=== PATIENT | female | born 1960 | race Caucasian/White ===

== ENCOUNTER 2022-10-21 09:29 | Inpatient (IN) | payer BC ==
--- OUTSIDE RECORDS SUMMARY | 2022-10-21 09:37 | XMS REPORT | Continuity of Care Document ---
:1960 Author Organization [facility] t Address [address] [facility] [address] [place] [address] Care Team Providers Name Role Phone Veronica Melton NP Primary Care Physician Favian Fenton MD Attending Clinician Pob, [facility] Main Attending Clinician Unavailable Pritesh Oswald MD Attending Clinician PRITESH OSWALD Attending Clinician Unavailable RADIOLOGY Attending Clinician Unavailable Radiology Attending Clinician Unavailable Doctor Unassigned, [place] Attending Clinician Unavailable CATA KING Attending Clinician Unavailable Veronica Melton NP Attending Clinician BAYLEE GOODSON K.HLucinda Attending Clinician Unavailable Baylee Goodson MD K.H. Attending Clinician AISHA MORENO Attending Clinician Unavailable Bashir De Anda Attending Clinician [phone] Donna Jerome LVN Attending Clinician Unavailable FAVIAN FENTON Attending Clinician Unavailable ADRIANNA MCKEON Attending Clinician Unavailable Latia Penny Attending Clinician Adrianna Lebron Attending Clinician Team, [facility] Attending Clinician UnavailLATIA Slaughter Attending Clinician Unavailable King JAM MD, Brett Goode Attending Clinician MARY ROLLE Attending Clinician Unavailable Therapy, [facility] Covid Infusion Attending Clinician Unavailable Mary Rolle MD Attending Clinician Jarett REINOSO, Bailee Mckeon Attending Clinician Unavailable Provider, [facility] Attending Clinician Unavailable Kassidy Delacruz Attending Clinician [phone] Ashley Ledbetter MD Attending Clinician ASHLEY LEDBETTER Attending Clinician Unavailable Mary Grace Gonzalez MD Attending Clinician Lupillo Ballesteros MD Attending Clinician Kyara Mayers Attending Clinician Goyo Weaver DO Attending Clinician Pcp, Patient Does Not Have A Attending Clinician [phone] , [facility] Echo Room 1 - Attending Clinician Unavailable Lucius DUMONT, Nathen Attending Clinician 2, [facility] Lab Attending Clinician Unavailable Kenneth Johnson MD Attending Clinician JERRELL ROE Attending Clinician Unavailable Po, [facility] Attending Clinician Unavailable Oswaldo Black Attending Clinician OSWALDO BERGERON Attending Clinician Unavailable KYARA GRIFFITH Attending Clinician Unavailable Jaxon Fallon MD Attending Clinician Caroline Sanford Attending Clinician CAROLINE COE Attending Clinician Unavailable Therapy-Verona Cheng-B[facility]-Phys Attending Clinician Unavailable KENNETH JOHNSON Attending Clinician Unavailable Station, [facility] Heart Attending Clinician Unavailable 1, [facility] Lab Attending Clinician Unavailable Tech, [facility] Vascular Attending Clinician Unavailable Tech, [facility] Fac Attending Clinician Unavailable 1, [facility] Cardio Fac Room Attending Clinician Unavailable PRITESH OSWALD Admitting Clinician Unavailable FAVIAN FENTON Admitting Clinician Unavailable KYARA GRIFFITH Admitting Clinician Unavailable Payers Payer Name Policy Type Policy Number Effective Date Expiration Date Kalina moreno [facility] [id number] 2017 00:00:00 [facility] [id number] [place]-AREA POS - BCBS Problems Condition Condition Condition Status Onset Resolution Last Treating Co mments Source Name Details Category Date Date Treatment Clinician Date Primary Primary Disease Active 2018-06 Overview: Univ ers osteoarthr osteoarthr 1-11 [facility] ity of itis of itis of 00:00: g of this [place] left knee left knee 00 note Medi tia might be Branch different from the original. Added automatic ally from request for surgery [id number] Total knee Total knee Disease Active U nivers replacemen replacemen 03-03 it y of t status t status 00:00: [place] 00 Medical Branch Primary Primary Disease Active Overview: Univ ers osteoarthr osteoarthr 912 Formatt[facility] ity of itis of itis of 00:00: g of this [place] right knee right knee 00 note Me dical might be Branch different from the original. Added automatic ally from request for surgery [id number] Prediabete Prediabete Disease Active U nivers s s 3-06 ity of 00:00: [place] [facility] Metabolic Metabolic Disease Active 2015-06 Uni vers syndrome syndrome 2-02 ity of 00:00: [place] 00 Medical Branch Diastolic Diastolic Disease Active 2015-06 Uni vers dysfunctio dysfunctio 2-02 it y of n n 00:00: [place] [facility] Dyslipidem Dyslipidem Disease Active U nivers ia ia 2-10 ity of 00:00: [place] 00 Medical Branch Family Family Disease Active Univers history of history of 2-10 it y of cardiac cardiac 00:00: [place] disorder disorder 00 Medica l in father in father Bran ch HARI HARI Disease Active Univers (obstructi (obstructi 2-10 it y of ve sleep ve sleep 00:00: [place] apnea) apnea) 00 Medical Branch Obesity Obesity Disease Active Univers 2-10 ity of 00:00: [place] 00 Medical Branch Cardiac Cardiac Disease Active Univers murmur murmur 2-10 ity of 00:00: [place] 00 Medical Branch Depression Depression Disease Active U nivers 2-04 ity of 00:00: [place] [facility] Anxiety Anxiety Disease Active Univers 2-04 ity of 00:00: [place] 00 Medical Branch Hyperlipid Hyperlipid Disease Active 2016- U nivers emia emia 2-04 ity of 00:00: [place] 00 Medical Branch 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 2-04 it [place] neuropathy [place] Osteoarthr Osteoarthr Disease Active 2016- U nivers itis itis 2-04 ity of 00:00: [place] 00 Medical Branch Allergies, Adverse Reactions, Alerts Allergy Allergy Status Severity Reaction(s) Onset Inactive Treating Comm ents Source Name Type Date Date Clinician BIOTIN DRUG Active Other-Cmnt 2018-06 Univer s INGREDI 1-14 ity of 00:00: [place] 00 Medical Branch Biotin Propensi Active Other - See 2018-06 Causes Uni vers ty to comments 1-14 thyroid ity of adverse 00:00: issues [place] reaction 00 Medical s Branch PENICILL DRUG Active Rash 2014-06 Univers IN INGREDI 0-21 ity of 00:00: [place] 00 Medical Branch SIMVASTA DRUG Active Unknown-Cmnt 2014-06 Un kelly TIN INGREDI 0-21 ity of 00:00: [place] 00 Medical Branch Penicill Propensi Active Rash 2014-06 Univer s in ty to 0-21 ity of adverse 00:00: [place] reaction 00 Medical s Branch Simvasta Propensi Active Unknown - 2014-06 Uni vers tin ty to See comments 0-21 ity of adverse 00:00: [place] reaction 00 Medical s Branch Social History Social Habit Start Date Stop Date Quantity Comments Source Exposure to 2022-08-07 2022-08-17 Not sure [facility] SARS-CoV-2 00:00:00 12:00:[address] [facility] (event) Branch Alcohol intake 2021-10-31 2021-10-31 Current University of 00:00:00 00:00:00 non-drinker of [facility] alcohol (finding) Branch History [facility] 2019-04-28 2019-04-28 5 University o f Financial 00:00:00 00:00:00 [place] [facility] History SDAL Food 2019-04-28 2019-04-28 1 Univers ity of Worry 00:00:00 00:00:00 [place] [facility] History SDAL Food 2019-04-28 2019-04-28 1 Univers ity of Scarcity 00:00:00 00:00:00 [place] [facility] History SDAL 2019-04-28 2019-04-28 2 University o f Transport Med 00:00:00 00:00:00 [place] Medic al Branch History SDAL 2019-04-28 2019-04-28 2 University o f Transport Non-Med 00:00:00 00:00:00 [place] M edical Branch Tobacco use and 2015-07-15 2015-07-15 Smokeless tobacco Un iversity of exposure 00:00:00 00:00:00 non-user [facility] Sex Assigned At [birth year] JOCELYNE Morgan 00:00:00 00:00:00 [facility] Smoking Status Start Date Stop Date Source Never smoked tobacco [facility] Medications Ordered Filled Start Stop Current Ordering Indication Dosage Frequency Signature Comments Components Source Medication Medication Date Date Medication? Clinician (SIG) Name Name venlafaxine 2022-0 Yes 150mg Take 1 Uni vers XR 150 mg 4-26 capsule by ity of 24 hr 00:00: mouth in [place] capsule 00 the morning. Branch MUST BE SEEN FOR FURTHER REFILLS VENLAFAXINE 2022-0 Yes 150mg TAKE 1 Uni vers XR 150 mg 2-23 CAPSULE BY ity of 24 hr 00:00: MOUTH [place] capsule 00 DAILY Medical Branch VENLAFAXINE 3-0 Yes 150mg TAKE 1 Uni vers XR 150 mg 2-23 CAPSULE BY ity of 24 hr 00:00: MOUTH [place] capsule 00 DAILY Medical Branch VENLAFAXINE 2022-0 Yes 150mg TAKE 1 Uni vers XR 150 mg 2-23 CAPSULE BY ity of 24 hr 00:00: MOUTH [place] capsule 00 DAILY Medical Branch VENLAFAXINE 3-0 Yes 150mg TAKE 1 Uni vers XR 150 mg 2-23 CAPSULE BY ity of 24 hr 00:00: MOUTH [place] capsule 00 DAILY Medical Branch VENLAFAXINE 3-0 Yes 150mg TAKE 1 Uni vers XR 150 mg 2-23 CAPSULE BY ity of 24 hr 00:00: MOUTH [place] capsule 00 DAILY Medical Branch VENLAFAXINE 3-0 Yes 150mg TAKE 1 Uni vers XR 150 mg 2-23 CAPSULE BY ity of 24 hr 00:00: MOUTH [place] capsule 00 DAILY Medical Branch VENLAFAXINE 3-0 Yes 150mg TAKE 1 Uni vers XR 150 mg 2-23 CAPSULE BY ity of 24 hr 00:00: MOUTH [place] capsule 00 DAILY Medical Branch VENLAFAXINE 2022-0 Yes 150mg TAKE 1 Uni vers XR 150 mg 2-23 CAPSULE BY ity of 24 hr 00:00: MOUTH [place] capsule 00 DAILY Medical Branch VENLAFAXINE 2022-0 Yes 150mg TAKE 1 Uni vers XR 150 mg 2-23 CAPSULE BY ity of 24 hr 00:00: MOUTH [place] capsule 00 DAILY Medical Branch VENLAFAXINE 0 3- No 150mg TAKE 1 Un kelly XR 150 mg 2-23 04-26 CAPSULE BY ity of 24 hr 00:00: 00:00 MOUTH [place] capsule 00 :00 DAILY Medical Branch lisinopriL 2021-0 Yes [id number] 5mg Take 1 U nivers 5 mg tablet 9-26 tablet by ity of 00:00: mouth in [place] 00 the Medical morning Branch and 1 tablet in the evening. atorvastati 0 Yes [id number] 10mg Take 1 Univers n 10 mg 9-26 tablet by ity of tablet 00:00: mouth at [place] [address] bedtime. Medical Branch lisinopriL 0 Yes [id number] 5mg Take 1 U nivers 5 mg tablet 9-26 tablet by ity of 00:00: mouth in [place] 00 the Medical morning Branch and 1 tablet in the evening. atorvastati 2021-0 Yes [id number] 10mg Take 1 Univers n 10 mg 9-26 tablet by ity of tablet 00:00: mouth at [place] [address] bedtime. Medical Branch lisinopriL 2021-0 Yes [id number] 5mg Take 1 U nivers 5 mg tablet 9-26 tablet by ity of 00:00: mouth in [place] 00 the Medical morning Branch and 1 tablet in the evening. atorvastati 2021-0 Yes [id number] 10mg Take 1 Univers n 10 mg 9-26 tablet by ity of tablet 00:00: mouth at [place] [address] bedtime. Medical Branch lisinopriL 2021-0 Yes [id number] 5mg Take 1 U nivers 5 mg tablet 9-26 tablet by ity of 00:00: mouth in [place] 00 the Medical morning Branch and 1 tablet in the evening. atorvastati 2021-0 Yes [id number] 10mg Take 1 Univers n 10 mg 9-26 tablet by ity of tablet 00:00: mouth at [place] 00 bedtime. Medical Branch lisinopriL 2021-0 Yes [id number] 5mg Take 1 U nivers 5 mg tablet 9-26 tablet by ity of 00:00: mouth in [place] 00 the Medical morning Branch and 1 tablet in the evening. atorvastati 2021-0 Yes [id number] 10mg Take 1 Univers n 10 mg 9-26 tablet by ity of tablet 00:00: mouth at [place] [address] bedtime. Medical Branch lisinopriL 2021-0 Yes [id number] 5mg Take 1 U nivers 5 mg tablet 9-26 tablet by ity of 00:00: mouth in [place] 00 the Medical morning Branch and 1 tablet in the evening. atorvastati 2021-0 Yes [id number] 10mg Take 1 Univers n 10 mg 9-26 tablet by ity of tablet 00:00: mouth at [place] [address] bedtime. Medical Branch lisinopriL 2021-0 Yes [id number] 5mg Take 1 U nivers 5 mg tablet 9-26 tablet by ity of 00:00: mouth in [place] 00 the Medical morning Branch and 1 tablet in the evening. atorvastati 2021-0 Yes [id number] 10mg Take 1 Univers n 10 mg 9-26 tablet by ity of tablet 00:00: mouth at [place] [address] bedtime. Medical Branch lisinopriL 2021-0 Yes [id number] 5mg Take 1 U nivers 5 mg tablet 9-26 tablet by ity of 00:00: mouth in [place] 00 the Medical morning Branch and 1 tablet in the evening. atorvastati 2021-0 Yes [id number] 10mg Take 1 Univers n 10 mg 9-26 tablet by ity of tablet 00:00: mouth at [place] [address] bedtime. Medical Branch lisinopriL 2021-0 Yes [id number] 5mg Take 1 U nivers 5 mg tablet 9-26 tablet by ity of 00:00: mouth in [place] 00 the Medical morning Branch and 1 tablet in the evening. atorvastati 2021-0 Yes [id number] 10mg Take 1 Univers n 10 mg 9-26 tablet by ity of tablet 00:00: mouth at [place] [address] bedtime. Medical Branch lisinopriL 2021-0 Yes [id number] 5mg Take 1 U nivers 5 mg tablet 9-26 tablet by ity of 00:00: mouth in [place] 00 the Medical morning Branch and 1 tablet in the evening. atorvastati 2021-0 Yes [id number] 10mg Take 1 Univers n 10 mg 9-26 tablet by ity of tablet 00:00: mouth at [place] [address] bedtime. Medical Branch lisinopriL 2021-0 Yes [id number] 5mg Take 1 U nivers 5 mg tablet 9-26 tablet by ity of 00:00: mouth in [place] 00 the Medical morning Branch and 1 tablet in the evening. atorvastati 2021-0 Yes [id number] 10mg Take 1 Univers n 10 mg 9-26 tablet by ity of tablet 00:00: mouth at [place] [address] bedtime. Medical Branch lisinopriL 2021-0 Yes [id number] 5mg Take 1 U nivers 5 mg tablet 9-26 tablet by ity of 00:00: mouth in [place] 00 the Medical morning Branch and 1 tablet in the evening. atorvastati 2021-0 Yes [id number] 10mg Take 1 Univers n 10 mg 9-26 tablet by ity of tablet 00:00: mouth at [place] [address] bedtime. Medical Branch lisinopriL 0 Yes [id number] 5mg Take 1 U nivers 5 mg tablet 9-26 tablet by ity of 00:00: mouth in [place] 00 the Medical morning Branch and 1 tablet in the evening. atorvastati 2021-0 Yes [id number] 10mg Take 1 Univers n 10 mg 9-26 tablet by ity of tablet 00:00: mouth at [place] [address] bedtime. Medical Branch lisinopriL 2021-0 Yes [id number] 5mg Take 1 U nivers 5 mg tablet 9-26 tablet by ity of 00:00: mouth in [place] 00 the Medical morning Branch and 1 tablet in the evening. atorvastati 2021-0 Yes [id number] 10mg Take 1 Univers n 10 mg 9-26 tablet by ity of tablet 00:00: mouth at [place] [address] bedtime. Medical Branch lisinopriL 2021-0 Yes [id number] 5mg Take 1 U nivers 5 mg tablet 9-26 tablet by ity of 00:00: mouth in [place] 00 the Medical morning Branch and 1 tablet in the evening. atorvastati 2021-0 Yes [id number] 10mg Take 1 Univers n 10 mg 9-26 tablet by ity of tablet 00:00: mouth at [place] bedtime. Medical Branch XARELTO 20 2021-0 Yes [id number] TAKE 1 Univers mg tablet 8-01 TABLET BY ity o f 00:00: MOUTH EVERY DAY Medical Branch MONTELUKAST 2021-0 Yes [id number] 10mg TAKE 1 Univers 10 mg 8-01 9102 TABLET BY ity of tablet 00:00: MOUTH DAILY Medical Branch VENLAFAXINE 2021-0 Yes 150mg TAKE 1 Uni vers XR 150 mg 8-01 CAPSULE BY ity of 24 hr 00:00: MOUTH [place] capsule 00 DAILY Medical Branch ATORVASTATI 0 Yes [id number] 10mg TAKE 1 Univers N 10 mg 8-01 TABLET BY ity of tablet 00:00: MOUTH AT [place] BEDTIME Medical Branch MONTELUKAST 0 Yes [id number] 10mg TAKE 1 Univers 10 mg 8-01 9102 TABLET BY ity of tablet 00:00: MOUTH DAILY Medical Branch ATORVASTATI 0 Yes [id number] 10mg TAKE 1 Univers N 10 mg 8-01 TABLET BY ity of tablet 00:00: MOUTH AT [place] BEDTIME Medical Branch lisinopriL Yes TAKE 1 Unive rs 5 mg tablet 8-01 TABLET BY ity of 00:00: MOUTH TWICE Medical DAILY Branch XARELTO 20 0 Yes [id number] TAKE 1 Univers mg tablet 8-01 TABLET BY ity o f 00:00: MOUTH [place] EVERY DAY Medical Branch MONTELUKAST 2021-0 Yes [id number] 10mg TAKE 1 Univers 10 mg 8-01 9102 TABLET BY ity of tablet 00:00: MOUTH DAILY Medical Branch VENLAFAXINE 2021-0 Yes 150mg TAKE 1 Uni vers XR 150 mg 8-01 CAPSULE BY ity of 24 hr 00:00: MOUTH [place] capsule 00 DAILY Medical Branch ATORVASTATI 2021-0 Yes [id number] 10mg TAKE 1 Univers N 10 mg 8-01 TABLET BY ity of tablet 00:00: MOUTH AT [place] BEDTIME Medical Branch MONTELUKAST 2021-0 Yes [id number] 10mg TAKE 1 Univers 10 mg 8-01 9102 TABLET BY ity of tablet 00:00: MOUTH DAILY Medical Branch ATORVASTATI Yes [id number] 10mg TAKE 1 Univers N 10 mg 8-01 TABLET BY ity of tablet 00:00: MOUTH AT [place] BEDTIME Medical Branch lisinopriL Yes TAKE 1 Unive rs 5 mg tablet 8-01 TABLET BY ity of 00:00: MOUTH [place] TWICE Medical DAILY Branch XARELTO 20 0 Yes [id number] TAKE 1 Univers mg tablet 8-01 TABLET BY ity o f 00:00: MOUTH [place] EVERY DAY Medical Branch MONTELUKAST 0 Yes [id number] 10mg TAKE 1 Univers 10 mg 8-01 9102 TABLET BY ity of tablet 00:00: MOUTH [place] DAILY Medical Branch VENLAFAXINE Yes 150mg TAKE 1 Uni vers XR 150 mg 8-01 CAPSULE BY ity of 24 hr 00:00: MOUTH [place] capsule DAILY Medical Branch ATORVASTATI Yes [id number] 10mg TAKE 1 Univers N 10 mg 8-01 TABLET BY ity of tablet 00:00: MOUTH AT [place] BEDTIME Medical Branch MONTELUKAST Yes [id number] 10mg TAKE 1 Univers 10 mg 8-01 9102 TABLET BY ity of tablet 00:00: MOUTH [place] DAILY Medical Branch ATORVASTATI Yes [id number] 10mg TAKE 1 Univers N 10 mg 8-01 TABLET BY ity of tablet 00:00: MOUTH [facility] BEDTIME Medical Branch lisinopriL Yes TAKE 1 Unive rs 5 mg tablet 8-01 TABLET BY ity of 00:00: MOUTH [place] TWICE Medical DAILY Branch XARELTO 20 Yes [id number] TAKE 1 Univers mg tablet 8-01 TABLET BY ity o f 00:00: MOUTH [place] EVERY DAY Medical Branch MONTELUKAST 0 Yes [id number] 10mg TAKE 1 Univers 10 mg 8-01 9102 TABLET BY ity of tablet 00:00: MOUTH [place] DAILY Medical Branch VENLAFAXINE 2021-0 Yes 150mg TAKE 1 Uni vers XR 150 mg 8-01 CAPSULE BY ity of 24 hr 00:00: MOUTH [place] capsule DAILY Medical Branch ATORVASTATI Yes [id number] 10mg TAKE 1 Univers N 10 mg 8-01 TABLET BY ity of tablet 00:00: MOUTH AT [place] BEDTIME Medical Branch MONTELUKAST Yes [id number] 10mg TAKE 1 Univers 10 mg 8-01 9102 TABLET BY ity of tablet 00:00: MOUTH [place] DAILY Medical Branch ATORVASTATI 0 Yes [id number] 10mg TAKE 1 Univers N 10 mg 8-01 TABLET BY ity of tablet 00:00: MOUTH AT [place] BEDTIME Medical Branch XARELTO 20 Yes [id number] TAKE 1 Univers mg tablet 8-01 TABLET BY ity o f 00:00: MOUTH [place] EVERY DAY Medical Branch MONTELUKAST Yes [id number] 10mg TAKE 1 Univers 10 mg 8-01 9102 TABLET BY ity of tablet 00:00: MOUTH [place] DAILY Medical Branch VENLAFAXINE Yes 150mg TAKE 1 Uni vers XR 150 mg 8-01 CAPSULE BY ity of 24 hr 00:00: MOUTH [place] capsule DAILY Medical Branch [facility] CARELUKAST Yes [id number] 10mg TAKE 1 Univers 10 mg 8-01 9102 TABLET BY ity of tablet 00:00: MOUTH [place] DAILY Medical Branch ATORVASTATI Yes [id number] 10mg TAKE 1 Univers N 10 mg 8-01 TABLET BY ity of tablet 00:00: MOUTH AT [place] BEDTIME Medical Branch XARELTO 20 Yes [id number] TAKE 1 Univers mg tablet 8-01 TABLET BY ity o f 00:00: MOUTH [place] DAY Medical Branch MONTELUKAST Yes [id number] 10mg TAKE 1 Univers 10 mg 8-01 9102 TABLET BY ity of tablet 00:00: MOUTH [place] DAILY Medical Branch VENLAFAXINE Yes 150mg TAKE 1 Uni vers XR 150 mg 8-01 CAPSULE BY ity of 24 hr 00:00: MOUTH [place] capsule DAILY Medical Branch MONTELUKAST Yes [id number] 10mg TAKE 1 Univers 10 mg 8-01 9102 TABLET BY ity of tablet 00:00: MOUTH [place] DAILY Medical Branch ATORVASTATI Yes [id number] 10mg TAKE 1 Univers N 10 mg 8-01 TABLET BY ity of tablet 00:00: MOUTH AT [place] BEDTIME Medical Branch XARELTO 20 Yes [id number] TAKE 1 Univers mg tablet 8-01 TABLET BY ity o f 00:00: MOUTH EVERY DAY Medical Branch MONTELUKAST 0 Yes [id number] 10mg TAKE 1 Univers 10 mg 8-01 9102 TABLET BY ity of tablet 00:00: MOUTH DAILY Medical Branch VENLAFAXINE 0 Yes 150mg TAKE 1 Uni vers XR 150 mg 8-01 CAPSULE BY ity of 24 hr 00:00: MOUTH [place] capsule DAILY Medical Branch MONTELUKAST Yes [id number] 10mg TAKE 1 Univers 10 mg 8-01 9102 TABLET BY ity of tablet 00:00: MOUTH DAILY Medical Branch ATORVASTATI Yes [id number] 10mg TAKE 1 Univers N 10 mg 8-01 TABLET BY ity of tablet 00:00: MOUTH AT [place] BEDTIME Medical Branch XARELTO 20 Yes [id number] TAKE 1 Univers mg tablet 8-01 TABLET BY ity o f 00:00: MOUTH EVERY DAY Medical Branch MONTELUKAST Yes [id number] 10mg TAKE 1 Univers 10 mg 8-01 9102 TABLET BY ity of tablet 00:00: MOUTH DAILY Medical Branch VENLAFAXINE 0 Yes 150mg TAKE 1 Uni vers XR 150 mg 8-01 CAPSULE BY ity of 24 hr 00:00: MOUTH [place] capsule DAILY Medical Branch MONTELUKAST 0 Yes [id number] 10mg TAKE 1 Univers 10 mg 8-01 9102 TABLET BY ity of tablet 00:00: MOUTH DAILY Medical Branch ATORVASTATI 0 Yes [id number] 10mg TAKE 1 Univers N 10 mg 8-01 TABLET BY ity of tablet 00:00: MOUTH AT [place] BEDTIME Medical Branch XARELTO 20 Yes [id number] TAKE 1 Univers mg tablet 8-01 TABLET BY ity o f 00:00: MOUTH [place] EVERY DAY Medical Branch MONTELUKAST 0 Yes [id number] 10mg TAKE 1 Univers 10 mg 8-01 9102 TABLET BY ity of tablet 00:00: MOUTH DAILY Medical Branch VENLAFAXINE Yes 150mg TAKE 1 Uni vers XR 150 mg 8-01 CAPSULE BY ity of 24 hr 00:00: MOUTH [place] DAILY Medical Branch MONTELUKAST Yes [id number] 10mg TAKE 1 Univers 10 mg 8-01 9102 TABLET BY ity of tablet 00:00: MOUTH [place] DAILY Medical Branch ATORVASTATI 0 Yes [id number] 10mg TAKE 1 Univers N 10 mg 8-01 TABLET BY ity of tablet 00:00: MOUTH AT [place] BEDTIME Medical Branch XARELTO 20 Yes [id number] TAKE 1 Univers mg tablet 8-01 TABLET BY ity o f 00:00: MOUTH [place] EVERY DAY Medical Branch MONTELUKAST Yes [id number] 10mg TAKE 1 Univers 10 mg 8-01 9102 TABLET BY ity of tablet 00:00: MOUTH [place] DAILY Medical Branch MONTELUKAST 0 Yes [id number] 10mg TAKE 1 Univers 10 mg 8-01 9102 TABLET BY ity of tablet 00:00: MOUTH [place] DAILY Medical Branch ATORVASTATI 0 Yes [id number] 10mg TAKE 1 Univers N 10 mg 8-01 TABLET BY ity of tablet 00:00: MOUTH AT [place] BEDTIME Medical Branch XARELTO 20 Yes [id number] TAKE 1 Univers mg tablet 8-01 TABLET BY ity o f 00:00: MOUTH [place] DAY Medical Branch MONTELUKAST 2021-0 Yes [id number] 10mg TAKE 1 Univers 10 mg 8-01 9102 TABLET BY ity of tablet 00:00: MOUTH [place] DAILY Medical Branch MONTELUKAST 2021-0 Yes [id number] 10mg TAKE 1 Univers 10 mg 8-01 9102 TABLET BY ity of tablet 00:00: MOUTH [place] DAILY Medical Branch ATORVASTATI 0 Yes [id number] 10mg TAKE 1 Univers N 10 mg 8-01 TABLET BY ity of tablet 00:00: MOUTH AT [place] BEDTIME Medical Branch XARELTO 20 2021-0 Yes [id number] TAKE 1 Univers mg tablet 8-01 TABLET BY ity o f 00:00: MOUTH [place] EVERY DAY Medical Branch MONTELUKAST Yes [id number] 10mg TAKE 1 Univers 10 mg 8-01 9102 TABLET BY ity of tablet 00:00: MOUTH DAILY Medical Branch MONTELUKAST 2021-0 Yes [id number] 10mg TAKE 1 Univers 10 mg 8-01 9102 TABLET BY ity of tablet 00:00: MOUTH DAILY Medical Branch ATORVASTATI 2021-0 Yes [id number] 10mg TAKE 1 Univers N 10 mg 8-01 TABLET BY ity of tablet 00:00: MOUTH AT [place] BEDTIME Medical Branch XARELTO 20 0 Yes [id number] TAKE 1 Univers mg tablet 8-01 TABLET BY ity o f 00:00: MOUTH [place] EVERY DAY Medical Branch MONTELUKAST 0 Yes [id number] 10mg TAKE 1 Univers 10 mg 8-01 9102 TABLET BY ity of tablet 00:00: MOUTH [place] DAILY Medical Branch MONTELUKAST 0 Yes [id number] 10mg TAKE 1 Univers 10 mg 8-01 9102 TABLET BY ity of tablet 00:00: MOUTH [place] DAILY Medical Branch ATORVASTATI 0 Yes [id number] 10mg TAKE 1 Univers N 10 mg 8-01 TABLET BY ity of tablet 00:00: MOUTH AT [place] BEDTIME Medical Branch XARELTO 20 0 Yes [id number] TAKE 1 Univers mg tablet 8-01 TABLET BY ity o f 00:00: MOUTH [place] EVERY DAY Medical Branch MONTELUKAST 2021-0 Yes [id number] 10mg TAKE 1 Univers 10 mg 8-01 9102 TABLET BY ity of tablet 00:00: [facility] DAILY Medical Branch MONTELUKAST 2021-0 Yes [id number] 10mg TAKE 1 Univers 10 mg 8-01 9102 TABLET BY ity of tablet 00:00: MOUTH [place] DAILY Medical Branch ATORVASTATI 0 Yes [id number] 10mg TAKE 1 Univers N 10 mg 8-01 TABLET BY ity of tablet 00:00: MOUTH AT [place] BEDTIME Medical Branch XARELTO 20 2021-0 Yes [id number] TAKE 1 Univers mg tablet 8-01 TABLET BY ity o f 00:00: MOUTH [place] EVERY DAY Medical Branch MONTELUKAST 2021-0 Yes [id number] 10mg TAKE 1 Univers 10 mg 8-01 9102 TABLET BY ity of tablet 00:00: MOUTH [place] DAILY Medical Branch MONTELUKAST 2021-0 Yes [id number] 10mg TAKE 1 Univers 10 mg 8-01 9102 TABLET BY ity of tablet 00:00: MOUTH [place] DAILY Medical Branch ATORVASTATI 2021-0 Yes [id number] 10mg TAKE 1 Univers N 10 mg 8-01 TABLET BY ity of tablet 00:00: MOUTH AT [place] BEDTIME Medical Branch XARELTO 20 2021-0 Yes [id number] TAKE 1 Univers mg tablet 8-01 TABLET BY ity o f 00:00: MOUTH [place] EVERY DAY Medical Branch MONTELUKAST 2021-0 Yes [id number] 10mg TAKE 1 Univers 10 mg 8-01 9102 TABLET BY ity of tablet 00:00: MOUTH [place] DAILY Medical Branch MONTELUKAST 2021-0 Yes [id number] 10mg TAKE 1 [facility] 10 mg 8-01 9102 TABLET BY ity of tablet 00:00: [facility] DAILY Medical Branch ATORVASTATI 2021-0 Yes [id number] 10mg TAKE 1 [facility] N 10 mg 8-01 TABLET BY ity of tablet 00:00: MOUTH AT [place] BEDTIME Medical Branch XARELTO 20 2021-0 Yes [id number] TAKE 1 [facility] mg tablet 8-01 TABLET BY ity o f 00:00: MOUTH [place] EVERY DAY Medical Branch MONTELUKAST 2021-0 Yes [id number] 10mg TAKE 1 [facility] 10 mg 8-01 9102 TABLET BY ity of tablet 00:00: [facility] DAILY Medical Branch MONTELUKAST 2021-0 Yes [id number] 10mg TAKE 1 [facility] 10 mg 8-01 9102 TABLET BY ity of tablet 00:00: MOUTH [place] DAILY Medical Branch ATORVASTATI 2021-0 Yes [id number] 10mg TAKE 1 [facility] N 10 mg 8-01 TABLET BY ity of tablet 00:00: MOUTH AT [place] BEDTIME Medical Branch XARELTO 20 2021-0 Yes [id number] TAKE 1 [facility] mg tablet 8-01 TABLET BY ity o f 00:00: MOUTH [place] EVERY DAY Medical Branch MONTELUKAST 2021-0 Yes [id number] 10mg TAKE 1 [facility] 10 mg 8-01 9102 TABLET BY ity of tablet 00:00: MOUTH [place] DAILY Medical [facility] MONTELUKAST 0 Yes [id number] 10mg TAKE 1 [facility] 10 mg 8- 9102 TABLET BY ity of tablet 00:00: MOUTH [place] DAILY Medical [facility] ATORVASTATI 0 Yes [id number] 10mg TAKE 1 [facility] N 10 mg 8-01 TABLET BY ity of tablet 00:00: MOUTH AT [place] BEDTIME Medical Branch XARELTO 20 2021-0 Yes [id number] TAKE 1 [facility] mg tablet 8- TABLET BY ity o f 00:00: MOUTH [place] EVERY DAY Medical Branch MONTELUKAST 0 Yes [id number] 10mg TAKE 1 [facility] 10 mg 8- 9102 TABLET BY ity of tablet 00:00: MOUTH [place] DAILY Medical [facility] MONTELUKAST 0 Yes [id number] 10mg TAKE 1 [facility] 10 mg 8- 9102 TABLET BY ity of tablet 00:00: MOUTH [place] DAILY [facility] ATORVASTATI 0 Yes [id number] 10mg TAKE 1 [facility] N 10 mg 8- TABLET BY ity of tablet 00:00: MOUTH AT [place] BEDTIME Medical Branch VENLAFAXINE 0 2022- No 150mg TAKE 1 [facility] kelly XR 150 mg 01-09 CAPSULE BY ity of 24 hr 00:00: 00:00 MOUTH [place] capsule 00 :00 DAILY Medical Branch lisinopriL 0 2021- No TAKE 1 [facility] ers 5 mg tablet 01-09 TABLET BY it y of 00:00: 00:00 [facility] 00 :00 TWICE Medical DAILY Branch ATORVASTATI 0 2021- No [id number] 10mg TAKE 1 [facility] N 10 mg 01-09 TABLET BY ity of tablet 00:00: 00:00 MOUTH AT [place] 00 :00 BEDTIME Medical Branch lisinopriL 0 2021- No TAKE 1 [facility] ers 5 mg tablet 01-09 TABLET BY it y of 00:00: 00:00 MOUTH [place] 00 :00 TWICE Medical DAILY Branch ATORVASTATI 2021-0 2021- No [id number] 10mg TAKE 1 [facility] N 10 mg 01-09 TABLET BY ity of tablet 00:00: 00:00 MOUTH AT [place] 00 :00 BEDTIME Medical Branch lisinopriL 2021- No TAKE 1 [facility] ers 5 mg tablet 01-09 TABLET BY it y of 00:00: 00:00 MOUTH [place] 00 : TWICE Medical DAILY Branch ATORVASTATI 2021- No [id number] 10mg TAKE 1 [facility] N 10 mg 01-09 TABLET BY ity of tablet 00:00: 00:00 MOUTH AT [place] 00 :00 BEDTIME Medical Branch LISINOPRIL Yes TAKE 1 [facility] rs 5 mg tablet - TABLET BY ity of 00:00: MOUTH [place] TWICE Medical DAILY Branch LISINOPRIL Yes TAKE 1 [facility] 5 mg tablet 5-05 TABLET BY ity of 00:00: MOUTH [place] TWICE Medical DAILY Branch LISINOPRIL 2021- No TAKE 1 [facility] ers 5 mg tablet 10-13 TABLET BY it y of 00:00: 00:00 [facility] 00 :00 TWICE Medical DAILY Branch MONTELUKAST Yes [id number] 10mg TAKE 1 [facility] 10 mg - 9102 TABLET BY ity of tablet 00:00: [facility] DAILY Medical Branch ATORVASTATI Yes [id number] 10mg TAKE 1 [facility] N 10 mg - TABLET BY ity of tablet 00:00: MOUTH AT [place] 00 BEDTIME Medical Branch MONTELUKAST 2021- No [id number] 10mg TAKE 1 [facility] 10 mg 5-07 19- 9102 TABLET BY ity of tablet 00:00: 00:00 [facility] 00 : DAILY Medical Branch ATORVASTATI 2021- No [id number] 10mg TAKE 1 [facility] N 10 mg 5-01-09 TABLET BY ity of tablet 00:00: 00:00 MOUTH AT [place] 00 :00 BEDTIME Medical Branch VENLAFAXINE Yes 150mg TAKE 1 [facility] vers XR 150 mg - CAPSULE BY ity of 24 hr 00:00: MOUTH [place] capsule 00 DAILY Medical Branch VENLAFAXINE 0 2021- No 150mg TAKE 1 [facility] kelly XR 150 mg 4-06 18- CAPSULE BY ity of 24 hr 00:00: 00:00 MOUTH [place] capsule 00 :00 DAILY Medical Branch XARELTO 20 2022-0 Yes [id number] TAKE 1 [facility] mg tablet 1-31 TABLET BY ity o f 00:00: MOUTH [place] 00 EVERY DAY Medical Branch XARELTO 20 2021-0 2- No [id number] TAKE 1 [facility] mg tablet 1-31 08- TABLET BY ity of 00:00: 00:00 MOUTH [place] 00 :00 EVERY DAY Medical Branch benzonatate 2021-0 Yes [id number] 100mg Take 1 [facility] 100 mg 1-13 capsule by ity of capsule 00:00: mouth [place] 00 every 8 Medical (eight) Branch hours as needed for Cough. benzonatate 2021-0 Yes [id number] 100mg Take 1 [facility] 100 mg 1-13 capsule by ity of capsule 00:00: mouth [place] 00 every 8 Medical (eight) Branch hours as needed for Cough. benzonatate 2021-0 Yes [id number] 100mg Take 1 [facility] 100 mg 1-13 capsule by ity of capsule 00:00: mouth [place] 00 every 8 Medical (eight) Branch hours as needed for Cough. benzonatate 2021-0 Yes [id number] 100mg Take 1 [facility] 100 mg 1-13 capsule by ity of capsule 00:00: mouth [place] 00 every 8 Medical (eight) Branch hours as needed for Cough. benzonatate 2021-0 Yes [id number] 100mg Take 1 [facility] 100 mg 1-13 capsule by ity of capsule 00:00: mouth [place] 00 every 8 Medical (eight) Branch hours as needed for Cough. benzonatate 2021-0 Yes [id number] 100mg Take 1 [facility] 100 mg 1-13 capsule by ity of capsule 00:00: mouth [place] 00 every 8 Medical (eight) Branch hours as needed for Cough. benzonatate 2021-0 Yes [id number] 100mg Take 1 [facility] 100 mg 1-13 capsule by ity of capsule 00:00: mouth [place] 00 every 8 Medical (eight) Branch hours as needed for Cough. benzonatate 2021-0 Yes [id number] 100mg Take 1 [facility] 100 mg 1-13 capsule by ity of capsule 00:00: mouth [place] 00 every 8 Medical (eight) Branch hours as needed for Cough. benzonatate 2021-0 Yes [id number] 100mg Take 1 [facility] 100 mg 1-13 capsule by ity of capsule 00:00: mouth [place] 00 every 8 Medical (eight) Branch hours as needed for Cough. benzonatate 2-0 Yes [id number] 100mg Take 1 [facility] 100 mg 1-13 capsule by ity of capsule 00:00: mouth [place] 00 every 8 Medical (eight) Branch hours as needed for Cough. benzonatate 2021-0 Yes [id number] 100mg Take 1 [facility] 100 mg 1-13 capsule by ity of capsule 00:00: mouth [place] 00 every 8 Medical (eight) Branch hours as needed for Cough. benzonatate 2021-0 Yes [id number] 100mg Take 1 [facility] 100 mg 1-13 capsule by ity of capsule 00:00: mouth [place] 00 every 8 Medical (eight) Branch hours as needed for Cough. benzonatate 2021-0 Yes [id number] 100mg Take 1 [facility] 100 mg 1-13 capsule by ity of capsule 00:00: mouth [place] 00 every 8 Medical (eight) Branch hours as needed for Cough. benzonatate 2021-0 Yes [id number] 100mg Take 1 [facility] 100 mg 1-13 capsule by ity of capsule 00:00: mouth [place] 00 every 8 Medical (eight) Branch hours as needed for Cough. benzonatate 2021-0 Yes [id number] 100mg Take 1 [facility] 100 mg 1-13 capsule by ity of capsule 00:00: mouth [place] 00 every 8 Medical (eight) Branch hours as needed for Cough. benzonatate 2021-0 Yes [id number] 100mg Take 1 [facility] 100 mg 1-13 capsule by ity of capsule 00:00: mouth [place] 00 every 8 Medical (eight) Branch hours as needed for Cough. benzonatate 2021-0 Yes [id number] 100mg Take 1 [facility] 100 mg 1-13 capsule by ity of capsule 00:00: mouth [place] 00 every 8 Medical (eight) Branch hours as needed for Cough. benzonatate 2021-0 Yes [id number] 100mg Take 1 [facility] 100 mg 1-13 capsule by ity of capsule 00:00: mouth [place] 00 every 8 Medical (eight) Branch hours as needed for Cough. benzonatate 2-0 Yes [id number] 100mg Take 1 [facility] 100 mg 1-13 capsule by ity of capsule 00:00: mouth [place] 00 every 8 Medical (eight) Branch hours as needed for Cough. benzonatate 2-0 Yes [id number] 100mg Take 1 [facility] 100 mg 1-13 capsule by ity of capsule 00:00: mouth [place] 00 every 8 Medical (eight) Branch hours as needed for Cough. azithromyci Yes [id number] 250mg Take 1 [facility] n 8-25 [id number] tablet by ity of (ZITHROMAX 00:00: mouth [place] Z-LYNNE) 250 00 daily. Medical mg tablet Take 500 Branch mg day 1, then 250 mg days 2 to 5. predniSONE Yes [id number] 20mg Take 1 [facility] 20 mg 8-25 [id number] tablet by ity of tablet 00:00: mouth [place] 00 daily. Medical Branch azithromyci Yes [id number] 250mg Take 1 [facility] n 8-25 [id number] tablet by ity of (ZITHROMAX 00:00: mouth [place] Z-LYNNE) 250 00 daily. Medical mg tablet Take 500 Branch mg day 1, then 250 mg days 2 to 5. predniSONE Yes [id number] 20mg Take 1 [facility] 20 mg 8-25 [id number] tablet by ity of tablet 00:00: mouth [place] 00 daily. Medical Branch azithromyci Yes [id number] 250mg Take 1 [facility] n 8-25 [id number] tablet by ity of (ZITHROMAX 00:00: mouth [place] Z-LYNNE) 250 00 daily. Medical mg tablet Take 500 Branch mg day 1, then 250 mg days 2 to 5. predniSONE Yes [id number] 20mg Take 1 [facility] 20 mg 8-25 [id number] tablet by ity of tablet 00:00: mouth [place] 00 daily. Medical Branch azithromyci Yes [id number] 250mg Take 1 [facility] n 8-25 [id number] tablet by ity of (ZITHROMAX 00:00: mouth [place] Z-LYNNE) 250 00 daily. Medical mg tablet Take 500 Branch mg day 1, then 250 mg days 2 to 5. predniSONE 2020- Yes [id number] 20mg Take 1 [facility] 20 mg 8-25 [id number] tablet by ity of tablet 00:00: mouth [place] 00 daily. Medical Branch azithromyci Yes [id number] 250mg Take 1 [facility] n 8-25 [id number] tablet by ity of (ZITHROMAX 00:00: mouth [place] Z-LYNNE) 250 00 daily. Medical mg tablet Take 500 Branch mg day 1, then 250 mg days 2 to 5. predniSONE 2020-0 Yes [id number] 20mg Take 1 [facility] 20 mg 8-25 [id number] tablet by ity of tablet 00:00: mouth [place] 00 daily. Medical Branch azithromyci 2020-0 Yes [id number] 250mg Take 1 [facility] n 8-25 [id number] tablet by ity of (ZITHROMAX 00:00: mouth [place] Z-LYNNE) 250 00 daily. Medical mg tablet Take 500 Branch mg day 1, then 250 mg days 2 to 5. predniSONE 2020-0 Yes [id number] 20mg Take 1 [facility] 20 mg 8-25 [id number] tablet by ity of tablet 00:00: mouth [place] 00 daily. Medical Branch azithromyci 0 Yes [id number] 250mg Take 1 [facility] n 8-25 [id number] tablet by ity of (ZITHROMAX 00:00: mouth [place] Z-LYNNE) 250 00 daily. Medical mg tablet Take 500 Branch mg day 1, then 250 mg days 2 to 5. predniSONE 2020- Yes [id number] 20mg Take 1 [facility] 20 mg 8-25 [id number] tablet by ity of tablet 00:00: mouth [place] 00 daily. Medical Branch azithromyci 0 Yes [id number] 250mg Take 1 [facility] n 8-25 [id number] tablet by ity of (ZITHROMAX 00:00: mouth [place] Z-LYNNE) 250 00 daily. Medical mg tablet Take 500 Branch mg day 1, then 250 mg days 2 to 5. predniSONE 2020-0 Yes [id number] 20mg Take 1 [facility] 20 mg 8-25 [id number] tablet by ity of tablet 00:00: mouth [place] 00 daily. Medical Branch azithromyci 0 Yes [id number] 250mg Take 1 [facility] n 8-25 [id number] tablet by ity of (ZITHROMAX 00:00: mouth [place] Z-LYNNE) 250 00 daily. Medical mg tablet Take 500 Branch mg day 1, then 250 mg days 2 to 5. predniSONE 2020-0 Yes [id number] 20mg Take 1 [facility] 20 mg 8-25 [id number] tablet by ity of tablet 00:00: mouth [place] 00 daily. Medical Branch azithromyci Yes [id number] 250mg Take 1 [facility] n 8-25 [id number] tablet by ity of (ZITHROMAX 00:00: mouth [place] Z-LYNNE) 250 00 daily. Medical mg tablet Take 500 Branch mg day 1, then 250 mg days 2 to 5. predniSONE Yes [id number] 20mg Take 1 [facility] 20 mg 8-25 [id number] tablet by ity of tablet 00:00: mouth [place] 00 daily. Medical Branch azithromyci Yes [id number] 250mg Take 1 [facility] n 8-25 [id number] tablet by ity of (ZITHROMAX 00:00: mouth [place] Z-LYNNE) 250 00 daily. Medical mg tablet Take 500 Branch mg day 1, then 250 mg days 2 to 5. predniSONE Yes [id number] 20mg Take 1 [facility] 20 mg 8-25 [id number] tablet by ity of tablet 00:00: mouth [place] 00 daily. Medical Branch azithromyci Yes [id number] 250mg Take 1 [facility] n 8-25 [id number] tablet by ity of (ZITHROMAX 00:00: mouth [place] Z-LYNNE) 250 00 daily. Medical mg tablet Take 500 Branch mg day 1, then 250 mg days 2 to 5. predniSONE Yes [id number] 20mg Take 1 [facility] 20 mg 8-25 [id number] tablet by ity of tablet 00:00: mouth [place] 00 daily. Medical Branch azithromyci Yes [id number] 250mg Take 1 [facility] n 8-25 [id number] tablet by ity of (ZITHROMAX 00:00: mouth [place] Z-LYNNE) 250 00 daily. Medical mg tablet Take 500 Branch mg day 1, then 250 mg days 2 to 5. predniSONE 2020- Yes [id number] 20mg Take 1 [facility] 20 mg 8-25 [id number] tablet by ity of tablet 00:00: mouth [place] 00 daily. Medical Branch azithromyci Yes [id number] 250mg Take 1 [facility] n 8-25 [id number] tablet by ity of (ZITHROMAX 00:00: mouth [place] Z-LYNNE) 250 00 daily. Medical mg tablet Take 500 Branch mg day 1, then 250 mg days 2 to 5. predniSONE 2020-0 Yes [id number] 20mg Take 1 [facility] 20 mg 8-25 [id number] tablet by ity of tablet 00:00: mouth [place] 00 daily. Medical Branch azithromyci Yes [id number] 250mg Take 1 [facility] n 8-25 [id number] tablet by ity of (ZITHROMAX 00:00: mouth [place] Z-LYNNE) 250 00 daily. Medical mg tablet Take 500 Branch mg day 1, then 250 mg days 2 to 5. predniSONE 2020-0 Yes [id number] 20mg Take 1 [facility] 20 mg 8-25 [id number] tablet by ity of tablet 00:00: mouth [place] 00 daily. Medical Branch azithromyci Yes [id number] 250mg Take 1 [facility] n 8-25 [id number] tablet by ity of (ZITHROMAX 00:00: mouth [place] Z-LYNNE) 250 00 daily. Medical mg tablet Take 500 Branch mg day 1, then 250 mg days 2 to 5. predniSONE 2020- Yes [id number] 20mg Take 1 [facility] 20 mg 8-25 [id number] tablet by ity of tablet 00:00: mouth [place] 00 daily. Medical Branch azithromyci Yes [id number] 250mg Take 1 [facility] n 8-25 [id number] tablet by ity of (ZITHROMAX 00:00: mouth [place] Z-LYNNE) 250 00 daily. Medical mg tablet Take 500 Branch mg day 1, then 250 mg days 2 to 5. predniSONE 2020-0 Yes [id number] 20mg Take 1 [facility] 20 mg 8-25 [id number] tablet by ity of tablet 00:00: mouth [place] 00 daily. Medical Branch azithromyci Yes [id number] 250mg Take 1 [facility] n 8-25 [id number] tablet by ity of (ZITHROMAX 00:00: mouth [place] Z-LYNNE) 250 00 daily. Medical mg tablet Take 500 Branch mg day 1, then 250 mg days 2 to 5. predniSONE 2020-0 Yes [id number] 20mg Take 1 [facility] 20 mg 8-25 [id number] tablet by ity of tablet 00:00: mouth [place] 00 daily. Medical Branch azithromyci 0 Yes [id number] 250mg Take 1 [facility] n 8-25 [id number] tablet by ity of (ZITHROMAX 00:00: mouth [place] Z-LYNNE) 250 00 daily. Medical mg tablet Take 500 Branch mg day 1, then 250 mg days 2 to 5. predniSONE 2020-0 Yes [id number] 20mg Take 1 [facility] 20 mg 8-25 [id number] tablet by ity of tablet 00:00: mouth [place] 00 daily. Medical Branch azithromyci 0 Yes [id number] 250mg Take 1 [facility] n 8-25 [id number] tablet by ity of (ZITHROMAX 00:00: mouth [place] Z-LYNNE) 250 00 daily. Medical mg tablet Take 500 Branch mg day 1, then 250 mg days 2 to 5. predniSONE 2020- Yes [id number] 20mg Take 1 [facility] 20 mg 8-25 [id number] tablet by ity of tablet 00:00: mouth [place] 00 daily. Medical Branch azithromyci Yes [id number] 250mg Take 1 [facility] n 250 mg 8-08 tablet by ity of tablet 00:00: mouth [place] 00 daily. Medical Take 500 Branch mg day 1, then 250 mg days 2 to 5. methylPREDN 2020-0 Yes [id number] Take by [facility] ISolone 8-08 mouth ity of (MEDROL, 00:00: SEE-INSTRU [place],) 4 mg 00 CTIONS. Medica l tablets follow Branch package directions azithromyci 2020- Yes [id number] 250mg Take 1 [facility] n 250 mg 8-08 tablet by ity of tablet 00:00: mouth [place] 00 daily. Medical Take 500 Branch mg day 1, then 250 mg days 2 to 5. methylPREDN 2020-0 Yes [id number] Take by [facility] ISolone 8-08 mouth ity of (MEDROL, 00:00: SEE-INSTRU [place],) 4 mg 00 CTIONS. Medica l tablets follow Branch package directions azithromyci 2020- Yes [id number] 250mg Take 1 [facility] n 250 mg 8-08 tablet by ity of tablet 00:00: mouth [place] 00 daily. Medical Take 500 Branch mg day 1, then 250 mg days 2 to 5. methylPREDN 2020-0 Yes [id number] Take by [facility] ISolone 8-08 mouth ity of (MEDROL, 00:00: SEE-INSTRU [place],) 4 mg 00 CTIONS. Medica l tablets follow Branch package directions azithromyci 2020-0 Yes [id number] 250mg Take 1 [facility] n 250 mg 8-08 tablet by ity of tablet 00:00: mouth [place] 00 daily. Medical Take 500 Branch mg day 1, then 250 mg days 2 to 5. methylPREDN 2020-0 Yes [id number] Take by [facility] ISolone 8-08 mouth ity of (MEDROL, 00:00: SEE-INSTRU [place],) 4 mg 00 CTIONS. Medica l tablets follow Branch package directions azithromyci 2020-0 Yes [id number] 250mg Take 1 [facility] n 250 mg 8-08 tablet by ity of tablet 00:00: mouth [place] 00 daily. Medical Take 500 Branch mg day 1, then 250 mg days 2 to 5. methylPREDN 2020-0 Yes [id number] Take by [facility] ISolone 8-08 mouth ity of (MEDROL, 00:00: SEE-INSTRU [place],) 4 mg 00 CTIONS. Medica l tablets follow Branch package directions azithromyci 2020-0 Yes [id number] 250mg Take 1 [facility] n 250 mg 8-08 tablet by ity of tablet 00:00: mouth [place] 00 daily. Medical Take 500 Branch mg day 1, then 250 mg days 2 to 5. methylPREDN 2020-0 Yes [id number] Take by [facility] ISolone 8-08 mouth ity of (MEDROL, 00:00: SEE-INSTRU [place],) 4 mg 00 CTIONS. Medica l tablets follow Branch package directions azithromyci 2020-0 Yes [id number] 250mg Take 1 [facility] n 250 mg 8-08 tablet by ity of tablet 00:00: mouth [place] 00 daily. Medical Take 500 Branch mg day 1, then 250 mg days 2 to 5. methylPREDN 2020-0 Yes [id number] Take by [facility] ISolone 8-08 mouth ity of (MEDROL, 00:00: SEE-INSTRU [place],) 4 mg 00 CTIONS. Medica l tablets follow Branch package directions azithromyci 2020-0 Yes [id number] 250mg Take 1 [facility] n 250 mg 8-08 tablet by ity of tablet 00:00: mouth [place] 00 daily. Medical Take 500 Branch mg day 1, then 250 mg days 2 to 5. methylPREDN 2020-0 Yes [id number] Take by [facility] ISolone 8-08 mouth ity of (MEDROL, 00:00: SEE-INSTRU [place],) 4 mg 00 CTIONS. Medica l tablets follow Branch package directions azithromyci 2020-0 Yes [id number] 250mg Take 1 [facility] n 250 mg 8-08 tablet by ity of tablet 00:00: mouth [place] 00 daily. Medical Take 500 Branch mg day 1, then 250 mg days 2 to 5. methylPREDN 2020-0 Yes [id number] Take by [facility] ISolone 8-08 mouth ity of (MEDROL, 00:00: SEE-INSTRU [place],) 4 mg 00 CTIONS. Medica l tablets follow Branch package directions azithromyci 2020-0 Yes [id number] 250mg Take 1 [facility] n 250 mg 8-08 tablet by ity of tablet 00:00: mouth [place] 00 daily. Medical Take 500 Branch mg day 1, then 250 mg days 2 to 5. methylPREDN 2020-0 Yes [id number] Take by [facility] ISolone 8-08 mouth ity of (MEDROL, 00:00: SEE-INSTRU [place],) 4 mg 00 CTIONS. Medica l tablets follow Branch package directions azithromyci 2020-0 Yes [id number] 250mg Take 1 [facility] n 250 mg 8-08 tablet by ity of tablet 00:00: mouth [place] 00 daily. Medical Take 500 Branch mg day 1, then 250 mg days 2 to 5. methylPREDN 2020-0 Yes [id number] Take by [facility] ISolone 8-08 mouth ity of (MEDROL, 00:00: SEE-INSTRU [place],) 4 mg 00 CTIONS. Medica l tablets follow Branch package directions azithromyci 2020-0 Yes [id number] 250mg Take 1 [facility] n 250 mg 8-08 tablet by ity of tablet 00:00: mouth [place] 00 daily. Medical Take 500 Branch mg day 1, then 250 mg days 2 to 5. methylPREDN 2020-0 Yes [id number] Take by [facility] ISolone 8-08 mouth ity of (MEDROL, 00:00: SEE-INSTRU [place],) 4 mg 00 CTIONS. Medica l tablets follow Branch package directions azithromyci 2020-0 Yes [id number] 250mg Take 1 [facility] n 250 mg 8-08 tablet by ity of tablet 00:00: mouth [place] 00 daily. Medical Take 500 Branch mg day 1, then 250 mg days 2 to 5. methylPREDN 2020-0 Yes [id number] Take by [facility] ISolone 8-08 mouth ity of (MEDROL, 00:00: SEE-INSTRU [place],) 4 mg 00 CTIONS. Medica l tablets follow Branch package directions azithromyci 2020-0 Yes [id number] 250mg Take 1 [facility] n 250 mg 8-08 tablet by ity of tablet 00:00: mouth [place] 00 daily. Medical Take 500 Branch mg day 1, then 250 mg days 2 to 5. methylPREDN 2020-0 Yes [id number] Take by [facility] ISolone 8-08 mouth ity of (MEDROL, 00:00: SEE-INSTRU [place],) 4 mg 00 CTIONS. Medica l tablets follow Branch package directions azithromyci 2020-0 Yes [id number] 250mg Take 1 [facility] n 250 mg 8-08 tablet by ity of tablet 00:00: mouth [place] 00 daily. Medical Take 500 Branch mg day 1, then 250 mg days 2 to 5. methylPREDN 2020-0 Yes [id number] Take by [facility] ISolone 8-08 mouth ity of (MEDROL, 00:00: SEE-INSTRU [place],) 4 mg 00 CTIONS. Medica l tablets follow Branch package directions azithromyci 2020-0 Yes [id number] 250mg Take 1 [facility] n 250 mg 8-08 tablet by ity of tablet 00:00: mouth [place] 00 daily. Medical Take 500 Branch mg day 1, then 250 mg days 2 to 5. methylPREDN 1-0 Yes [id number] Take by [facility] ISolone 8-08 mouth ity of (MEDROL, 00:00: SEE-INSTRU [place],) 4 mg 00 CTIONS. Medica l tablets follow Branch package directions azithromyci 2020-0 Yes [id number] 250mg Take 1 [facility] n 250 mg 8-08 tablet by ity of tablet 00:00: mouth [place] 00 daily. Medical Take 500 Branch mg day 1, then 250 mg days 2 to 5. methylPREDN 2020-0 Yes [id number] Take by [facility] ISolone 8-08 mouth ity of (MEDROL, 00:00: SEE-INSTRU [place],) 4 mg 00 CTIONS. Medica l tablets follow Branch package directions azithromyci 2020-0 Yes [id number] 250mg Take 1 [facility] n 250 mg 8-08 tablet by ity of tablet 00:00: mouth [place] 00 daily. Medical Take 500 Branch mg day 1, then 250 mg days 2 to 5. methylPREDN 2020-0 Yes [id number] Take by [facility] ISolone 8-08 mouth ity of (MEDROL, 00:00: SEE-INSTRU [place],) 4 mg 00 CTIONS. Medica l tablets follow Branch package directions azithromyci 2020-0 Yes [id number] 250mg Take 1 [facility] n 250 mg 8-08 tablet by ity of tablet 00:00: mouth [place] 00 daily. Medical Take 500 Branch mg day 1, then 250 mg days 2 to 5. methylPREDN 2020-0 Yes [id number] Take by [facility] ISolone 8-08 mouth ity of (MEDROL, 00:00: SEE-INSTRU [place],) 4 mg 00 CTIONS. Medica l tablets follow Branch package directions azithromyci 2020-0 Yes [id number] 250mg Take 1 [facility] n 250 mg 8-08 tablet by ity of tablet 00:00: mouth [place] 00 daily. Medical Take 500 Branch mg day 1, then 250 mg days 2 to 5. methylPREDN 2020-0 Yes [id number] Take by [facility] ISolone 8-08 mouth ity of (MEDROL, 00:00: SEE-INSTRU [place],) 4 mg 00 CTIONS. Medica l tablets follow Branch package directions azelastine- 2020-0 Yes [id number] 1{spray Use 1 [facility] fluticasone 7-15 } [place] in ity of (DYMISTA) 00:00: each [place] 137-50 00 nostril 2 Medical mcg/spray (two) Branch nasal spray times daily. benzonatate 2020-0 Yes [id number] 200mg Take 2 [facility] 100 mg 7-15 capsules [facility] of capsule 00:00: [place] mouth 2 [place] 00 (two) Medical times Branch daily as needed for Cough. azelastine- 2020-0 Yes [id number] 1{spray Use 1 [facility] fluticasone 7-15 } [place] in ity of (DYMISTA) 00:00: each [place] 137-50 00 nostril 2 Medical mcg/spray (two) Branch nasal spray times daily. benzonatate 2020-0 Yes [id number] 200mg Take 2 [facility] 100 mg 7-15 capsules it[facility] of capsule 00:00: by mouth 2 [place] 00 (two) Medical times Branch daily as needed for Cough. azelastine- 2020-0 Yes [id number] 1{spray Use 1 [facility] fluticasone 7-15 } [place] in ity of (DYMISTA) 00:00: each 137-50 00 nostril 2 Medical mcg/spray (two) Branch nasal spray times daily. benzonatate 2020-0 Yes [id number] 200mg Take 2 [facility] 100 mg 7-15 capsules ity of capsule 00:00: by mouth 2 [place] 00 (two) Medical times Branch daily as needed for Cough. azelastine- 2020-0 Yes [id number] 1{spray Use 1 [facility] fluticasone 7-15 } [place] in ity of (DYMISTA) 00:00: each [place] 137-50 00 nostril 2 Medical mcg/spray (two) Branch nasal spray times daily. benzonatate 2020-0 Yes [id number] 200mg Take 2 [facility] 100 mg 7-15 capsules [facility]y of capsule 00:00: by mouth 2 [place] 00 (two) Medical times Branch daily as needed for Cough. azelastine- 2020-0 Yes [id number] 1{spray Use 1 [facility] fluticasone 7-15 } [place] in ity of (DYMISTA) 00:00: each [place] 137-50 00 nostril 2 Medical mcg/spray (two) Branch nasal spray times daily. benzonatate 2020-0 Yes [id number] 200mg Take 2 [facility] 100 mg 7-15 capsules ity of capsule 00:00: by mouth 2 [place] 00 (two) Medical times Branch daily as needed for Cough. azelastine- 2020-0 Yes [id number] 1{spray Use 1 [facility] fluticasone 7-15 } [place] in ity of (DYMISTA) 00:00: each [place] 137-50 00 nostril 2 Medical mcg/spray (two) Branch nasal spray times daily. benzonatate 2020-0 Yes [id number] 200mg Take 2 [facility] 100 mg 7-15 capsules [facility] capsule 00:00: [place] mouth 2 [place] (two) [facility] times Branch daily as needed for Cough. azelastine- 2020-0 Yes [id number] 1{spray Use 1 [facility] fluticasone 7-15 } [place] in ity of ([place]MI[place]) 00:00: each 137-50 00 nostril 2 Medical mcg/spray (two) Branch nasal spray times daily. benzonatate 2020-0 Yes [id number] 200mg Take 2 [facility] 100 mg 7-15 capsules [facility] capsule 00:00: [place] mouth [place] (two) [facility] times [facility] daily as needed for Cough. azelastine- 2020-0 Yes [id number] 1{spray Use 1 [facility] fluticasone 7-15 } [place] in ity of ([place]) 00:00: each 137-50 00 nostril 2 Medical mcg/spray (two) Branch nasal spray times daily. benzonatate 2020-0 Yes [id number] 200mg Take 2 [facility] 100 mg 7-15 capsules [facility] capsule 00:00: [place] mouth 2 [place] (two) [facility] times Branch daily as needed for Cough. azelastine- 2020-0 Yes [id number] 1{spray Use 1 [facility] fluticasone 7-15 } [place] in ity of ([place]MI[place]) 00:00: each [place] 137-50 00 nostril 2 Medical mcg/spray (two) Branch nasal spray times daily. benzonatate 2020-0 Yes [id number] 200mg Take 2 [facility] 100 mg 7-15 capsules [facility] capsule 00:00: [place] mouth 2 [place] (two) [facility] times [facility] daily as needed for Cough. azelastine- 2020-0 Yes [id number] 1{spray Use 1 [facility] fluticasone 7-15 } [place] in ity of ([place]MI[place]) 00:00: each [place] 137-50 00 nostril 2 Medical mcg/spray (two) Branch nasal spray times daily. benzonatate 2020-0 Yes [id number] 200mg Take 2 [facility] 100 mg 7-15 capsules [facility] capsule 00:00: [place] mouth 2 [place] (two) [facility] times Branch daily as needed for Cough. azelastine- 2020-0 Yes [id number] 1{spray Use 1 [facility] fluticasone 7-15 } [place] in ity of ([place]MI[place]) 00:00: each [place] 137-50 00 nostril 2 Medical mcg/spray (two) Branch nasal spray times daily. benzonatate 2020-0 Yes [id number] 200mg Take 2 [facility] 100 mg 7-15 capsules [facility] capsule 00:00: by mouth 2 [place] 00 (two) [facility] times Branch daily as needed for Cough. azelastine- 2020-0 Yes [id number] 1{spray Use 1 [facility] fluticasone 7-15 } [place] in ity of ([place]MI[place]) 00:00: each [place] 137-50 00 nostril 2 Medical mcg/spray (two) Branch nasal spray times daily. benzonatate 2020-0 Yes [id number] 200mg Take 2 [facility] 100 mg 7-15 capsules [facility] capsule 00:00: by mouth 2 [place] (two) [facility] times [facility] daily as needed for Cough. azelastine- 2020-0 Yes [id number] 1{spray Use 1 [facility] fluticasone 7-15 } [place] in ity of ([place]) 00:00: each [place] 137-50 00 nostril 2 Medical mcg/spray (two) Branch nasal spray times daily. benzonatate 2020-0 Yes [id number] 200mg Take 2 [facility] 100 mg 7-15 capsules [facility] capsule 00:00: by mouth 2 [place] (two) [facility] times [facility] daily as needed for Cough. azelastine- 2020-0 Yes [id number] 1{spray Use 1 [facility] fluticasone 7-15 } [place] in ity of ([place]MI[place]) 00:00: each [place] 137-50 00 nostril 2 Medical mcg/spray (two) Branch nasal spray times daily. benzonatate 2020-0 Yes [id number] 200mg Take 2 [facility] 100 mg 7-15 capsules [facility] capsule 00:00: by mouth 2 [place] 00 (two) [facility] times Branch daily as needed for Cough. azelastine- 2020-0 Yes [id number] 1{spray Use 1 [facility] fluticasone 7-15 } [place] in ity of ([place]MI[place]) 00:00: each [place] 137-50 00 nostril 2 Medical mcg/spray (two) Branch nasal spray times daily. benzonatate 2020-0 Yes [id number] 200mg Take 2 [facility] 100 mg 7-15 capsules [facility] capsule 00:00: by mouth 2 [place] 00 (two) Medical times [facility] daily as needed for Cough. azelastine- 2020-0 Yes [id number] 1{spray Use 1 [facility] fluticasone 7-15 } [place] in ity of ([place]) 00:00: each [place] 137-50 00 nostril 2 Medical mcg/spray (two) Branch nasal spray times daily. benzonatate 2020-0 Yes [id number] 200mg Take 2 [facility] 100 mg 7-15 capsules [facility] capsule 00:00: by mouth 2 [place] 00 (two) Medical times Branch daily as needed for Cough. azelastine- 2020-0 Yes [id number] 1{spray Use 1 [facility] fluticasone 7-15 } [place] in ity of ([place]MI[place]) 00:00: each [place] 137-50 00 nostril 2 Medical mcg/spray (two) Branch nasal spray times daily. benzonatate 2020-0 Yes [id number] 200mg Take 2 [facility] 100 mg 7-15 capsules [facility] capsule 00:00: by mouth 2 [place] 00 (two) Medical times Branch daily as needed for Cough. azelastine- 2020-0 Yes [id number] 1{spray Use 1 [facility] fluticasone 7-15 } [place] in ity of ([place]) 00:00: each [place] 137-50 00 nostril 2 Medical mcg/spray (two) Branch nasal spray times daily. benzonatate 2020-0 Yes [id number] 200mg Take 2 [facility] 100 mg 7-15 capsules [facility] capsule 00:00: by mouth 2 [place] 00 (two) Medical times Branch daily as needed for Cough. azelastine- 2020-0 Yes [id number] 1{spray Use 1 [facility] fluticasone 7-15 } [place] in ity of ([place]MI[place]) 00:00: each [place] 137-50 00 nostril 2 Medical mcg/spray (two) Branch nasal spray times daily. benzonatate 2020-0 Yes [id number] 200mg Take 2 [facility] 100 mg 7-15 capsules [facility] capsule 00:00: by mouth 2 [place] (two) Medical times Branch daily as needed for Cough. azelastine- 2020-0 Yes [id number] 1{spray Use 1 [facility] fluticasone 7-15 } [place] in ity of ([place]) 00:00: each [place] 137-50 00 nostril 2 Medical mcg/spray (two) Branch nasal spray times daily. benzonatate 2020-0 Yes [id number] 200mg Take 2 [facility] 100 mg 7-15 capsules [facility] capsule 00:00: by mouth 2 [place] (two) [facility] times Branch daily as needed for Cough. olopatadine Yes [id number] 1[drp] Place 1 [facility] 0.1 % 1-13 9102 [place] in ity of ophthalmic 00:00: both eyes [place] solution 00 2 (two) Medical times Branch daily. olopatadine 2020-0 Yes [id number] 1[drp] Place 1 [facility] 0.1 % 1-13 9102 [place] in ity of ophthalmic 00:00: both eyes [place] solution 00 2 (two) Medical times Branch daily. olopatadine 2020-0 Yes [id number] 1[drp] Place 1 [facility] 0.1 % 1-13 9102 [place] in ity of ophthalmic 00:00: both eyes [place] solution 00 2 (two) Medical times Branch daily. olopatadine 2020-0 Yes [id number] 1[drp] Place 1 [facility] 0.1 % 1-13 9102 [place] in ity of ophthalmic 00:00: both eyes [place] solution 00 2 (two) Medical times Branch daily. olopatadine 2020-0 Yes [id number] 1[drp] Place 1 [facility] 0.1 % 1-13 9102 [place] in ity of ophthalmic 00:00: both eyes [place] solution 00 2 (two) Medical times Branch daily. olopatadine 2020-0 Yes [id number] 1[drp] Place 1 [facility] 0.1 % 1-13 9102 [place] in ity of ophthalmic 00:00: both eyes [place] solution 00 2 (two) Medical times Branch daily. olopatadine 2020-0 Yes [id number] 1[drp] Place 1 [facility] 0.1 % 1-13 9102 [place] in ity of ophthalmic 00:00: both eyes [place] solution 00 2 (two) Medical times Branch daily. olopatadine 2020-0 Yes [id number] 1[drp] Place 1 [facility] 0.1 % 1-13 9102 [place] in ity of ophthalmic 00:00: both eyes [place] solution 00 2 (two) Medical times Branch daily. olopatadine 2020-0 Yes [id number] 1[drp] Place 1 [facility] 0.1 % 1-13 9102 Drop in ity of ophthalmic 00:00: both eyes [place] solution 00 2 (two) Medical times Branch daily. olopatadine 2020-0 Yes [id number] 1[drp] Place 1 [facility] 0.1 % 1-13 9102 Drop in ity of ophthalmic 00:00: both eyes [place] solution 00 2 (two) Medical times Branch daily. olopatadine 2020-0 Yes [id number] 1[drp] Place 1 [facility] 0.1 % 1-13 9102 Drop in ity of ophthalmic 00:00: both eyes [place] solution 00 2 (two) Medical times Branch daily. olopatadine 2020-0 Yes [id number] 1[drp] Place 1 [facility] 0.1 % 1-13 9102 Drop in ity of ophthalmic 00:00: both eyes [place] solution 00 2 (two) Medical times Branch daily. olopatadine 2020-0 Yes [id number] 1[drp] Place 1 [facility] 0.1 % 1-13 9102 Drop in ity of ophthalmic 00:00: both eyes [place] solution 00 2 (two) Medical times Branch daily. olopatadine 2020-0 Yes [id number] 1[drp] Place 1 [facility] 0.1 % 1-13 9102 Drop in ity of ophthalmic 00:00: both eyes [place] solution 00 2 (two) Medical times Branch daily. olopatadine 2020-0 Yes [id number] 1[drp] Place 1 [facility] 0.1 % 1-13 9102 Drop in ity of ophthalmic 00:00: both eyes [place] solution 00 2 (two) Medical times Branch daily. olopatadine 2020-0 Yes [id number] 1[drp] Place 1 [facility] 0.1 % 1-13 9102 Drop in ity of ophthalmic 00:00: both eyes [place] solution 00 2 (two) Medical times Branch daily. olopatadine 2020-0 Yes [id number] 1[drp] Place 1 [facility] 0.1 % 1-13 9102 Drop in ity of ophthalmic 00:00: both eyes [place] solution 00 2 (two) Medical times Branch daily. olopatadine 2020-0 Yes [id number] 1[drp] Place 1 [facility] 0.1 % 1-13 9102 Drop in ity of ophthalmic 00:00: both eyes [place] solution 00 2 (two) Medical times Branch daily. olopatadine 2020-0 Yes [id number] 1[drp] Place 1 [facility] 0.1 % 1-13 9102 Drop in ity of ophthalmic 00:00: both eyes [place] solution 00 2 (two) Medical times Branch daily. olopatadine 2020-0 Yes [id number] 1[drp] Place 1 [facility] 0.1 % 1-13 9102 Drop in ity of ophthalmic 00:00: both eyes [place] solution 00 2 (two) Medical times Branch daily. mupirocin 2 2019- Yes [id number] Apply to [facility] % ointment 2-20 area(s) 3 ity of 00:00: (three) [place] 00 times Medical daily. Branch mupirocin 2 2019- Yes [id number] Apply to [facility] % ointment 2-20 area(s) 3 ity of 00:00: (three) [place] 00 times Medical daily. Branch mupirocin 2 2020- Yes [id number] Apply to [facility] % ointment 2-20 area(s) 3 ity of 00:00: (three) [place] 00 times Medical daily. Branch mupirocin 2 2019- Yes [id number] Apply to [facility] % ointment 2-20 area(s) 3 ity of 00:00: (three) [place] 00 times Medical daily. Branch mupirocin 2 2020-1 Yes [id number] Apply to [facility] % ointment 2-20 area(s) 3 ity of 00:00: (three) [place] 00 times Medical daily. Branch mupirocin 2 2020-1 Yes [id number] Apply to [facility] % ointment 2-20 area(s) 3 ity of 00:00: (three) [place] 00 times Medical daily. Branch mupirocin 2 2020-1 Yes [id number] Apply to [facility] % ointment 2-20 area(s) 3 ity of 00:00: (three) [place] 00 times Medical daily. Branch mupirocin 2 2020-1 Yes [id number] Apply to [facility] % ointment 2-20 area(s) 3 ity of 00:00: (three) [place] 00 times Medical daily. Branch mupirocin 2 2020- Yes [id number] Apply to [facility] % ointment 2-20 area(s) 3 ity of 00:00: (three) [place] 00 times Medical daily. Branch mupirocin 2 2020-1 Yes [id number] Apply to [facility] % ointment 2-20 area(s) 3 ity of 00:00: (three) [place] 00 times Medical daily. Branch mupirocin 2 2020-1 Yes [id number] Apply to [facility] % ointment 2-20 area(s) 3 ity of 00:00: (three) [place] 00 times Medical daily. Branch mupirocin 2 2020-1 Yes [id number] Apply to [facility] % ointment 2-20 area(s) 3 ity of 00:00: (three) [place] 00 times Medical daily. Branch mupirocin 2 2020-1 Yes [id number] Apply to [facility] % ointment 2-20 area(s) 3 ity of 00:00: (three) [place] 00 times Medical daily. Branch mupirocin 2 2020-1 Yes [id number] Apply to [facility] % ointment 2-20 area(s) 3 ity of 00:00: (three) [place] 00 times Medical daily. Branch mupirocin 2 2020- Yes [id number] Apply to [facility] % ointment 2-20 area(s) 3 ity of 00:00: (three) [place] 00 times Medical daily. Branch mupirocin 2 2020-1 Yes [id number] Apply to [facility] % ointment 2-20 area(s) 3 ity of 00:00: (three) [place] 00 times Medical daily. Branch mupirocin 2 2020-1 Yes [id number] Apply to [facility] % ointment 2-20 area(s) 3 ity of 00:00: (three) [place] 00 times Medical daily. Branch mupirocin 2 2020-1 Yes [id number] Apply to [facility] % ointment 2-20 area(s) 3 ity of 00:00: (three) [place] 00 times Medical daily. Branch mupirocin 2 2020-1 Yes [id number] Apply to [facility] % ointment 2-20 area(s) 3 ity of 00:00: (three) [place] 00 times Medical daily. Branch mupirocin 2 2020- Yes [id number] Apply to [facility] % ointment 2-20 area(s) 3 ity of 00:00: (three) [place] 00 times Medical daily. Branch albuterol 2020-0 Yes [id number] 2{puff} Inhale 2 [facility] 90 4-23 Puffs ity of mcg/actuati 00:00: every 6 [place] on inhaler 00 (six) Medical hours as Branch needed for Wheezing or Shortness of Breath. albuterol 2020-0 Yes [id number] 2{puff} Inhale 2 [facility] 90 4-23 Puffs ity of mcg/actuati 00:00: every 6 [place] inhaler 00 (six) Medical hours as Branch needed for Wheezing or Shortness of Breath. albuterol 2020-0 Yes [id number] 2{puff} Inhale 2 [facility] 90 4-23 Puffs ity of mcg/actuati 00:00: every 6 [place] inhaler 00 (six) Medical hours as Branch needed for Wheezing or Shortness of Breath. albuterol 2020-0 Yes [id number] 2{puff} Inhale 2 [facility] 90 4-23 Puffs ity of mcg/actuati 00:00: every 6 [place] inhaler 00 (six) Medical hours as Branch needed for Wheezing or Shortness of Breath. albuterol 2020-0 Yes [id number] 2{puff} Inhale 2 [facility] 90 4-23 Puffs ity of mcg/actuati 00:00: every 6 [place] inhaler 00 (six) Medical hours as Branch needed for Wheezing or Shortness of Breath. albuterol 2020-0 Yes [id number] 2{puff} Inhale 2 [facility] 90 4-23 Puffs ity of mcg/actuati 00:00: every 6 [place] inhaler 00 (six) Medical hours as Branch needed for Wheezing or Shortness of Breath. albuterol 2020-0 Yes [id number] 2{puff} Inhale 2 [facility] 90 4-23 Puffs ity of mcg/actuati 00:00: every 6 [place] inhaler 00 (six) Medical hours as Branch needed for Wheezing or Shortness of Breath. albuterol 2020-0 Yes [id number] 2{puff} Inhale 2 [facility] 90 4-23 Puffs ity of mcg/actuati 00:00: every 6 [place] inhaler 00 (six) Medical hours as Branch needed for Wheezing or Shortness of Breath. albuterol 2020-0 Yes [id number] 2{puff} Inhale 2 [facility] 90 4-23 Puffs ity of mcg/actuati 00:00: every 6 [place] inhaler 00 (six) Medical hours as Branch needed for Wheezing or Shortness of Breath. albuterol 2020-0 Yes [id number] 2{puff} Inhale 2 [facility] 90 4-23 Puffs ity of mcg/actuati 00:00: every 6 [place] inhaler 00 (six) Medical hours as Branch needed for Wheezing or Shortness of Breath. albuterol 2020-0 Yes [id number] 2{puff} Inhale 2 [facility] 90 4-23 Puffs ity of mcg/actuati 00:00: every 6 [place] inhaler 00 (six) Medical hours as Branch needed for Wheezing or Shortness of Breath. albuterol 2020-0 Yes [id number] 2{puff} Inhale 2 [facility] 90 4-23 Puffs ity of mcg/actuati 00:00: every 6 [place] inhaler 00 (six) Medical hours as Branch needed for Wheezing or Shortness of Breath. albuterol 2020-0 Yes [id number] 2{puff} Inhale 2 [facility] 90 4-23 Puffs ity of mcg/actuati 00:00: every 6 [place] inhaler 00 (six) Medical hours as Branch needed for Wheezing or Shortness of Breath. albuterol 2020-0 Yes [id number] 2{puff} Inhale 2 [facility] 90 4-23 Puffs ity of mcg/actuati 00:00: every 6 [place] inhaler 00 (six) Medical hours as Branch needed for Wheezing or Shortness of Breath. albuterol 2020-0 Yes [id number] 2{puff} Inhale 2 [facility] 90 4-23 Puffs ity of mcg/actuati 00:00: every 6 [place] inhaler 00 (six) Medical hours as Branch needed for Wheezing or Shortness of Breath. albuterol 2020-0 Yes [id number] 2{puff} Inhale 2 [facility] 90 4-23 Puffs ity of mcg/actuati 00:00: every 6 [place] inhaler 00 (six) Medical hours as Branch needed for Wheezing or Shortness of Breath. albuterol 2020-0 Yes [id number] 2{puff} Inhale 2 [facility] 90 4-23 Puffs ity of mcg/actuati 00:00: every 6 [place] inhaler 00 (six) Medical hours as Branch needed for Wheezing or Shortness of Breath. albuterol 2020-0 Yes [id number] 2{puff} Inhale 2 [facility] 90 4-23 Puffs ity of mcg/actuati 00:00: every 6 [place] inhaler 00 (six) Medical hours as Branch needed for Wheezing or Shortness of Breath. albuterol 2020-0 Yes [id number] 2{puff} Inhale 2 [facility] 90 4-23 Puffs ity of mcg/actuati 00:00: every 6 [place] inhaler 00 (six) Medical hours as Branch needed for Wheezing or Shortness of Breath. albuterol 2020-0 Yes [id number] 2{puff} Inhale 2 [facility] 90 4-23 Puffs ity of mcg/actuati 00:00: every 6 [place] inhaler 00 (six) Medical hours as Branch needed for Wheezing or Shortness of Breath. cetirizine 2019-0 Yes 10mg Take 10 mg [facility] (ZYRTEC) 10 4-22 by mouth ity of mg tablet 11:01: daily. [address] cetirizine 2020-0 Yes 10mg Take 10 mg [facility] (ZYRTEC) 10 4-22 by mouth ity of mg tablet 11:01: daily. [address] cetirizine 2020-0 Yes 10mg Take 10 mg [facility] (ZYRTEC) 10 4-22 by mouth ity of mg tablet 11:01: daily. [address] cetirizine 2020-0 Yes 10mg Take 10 mg [facility] (ZYRTEC) 10 4-22 by mouth ity of mg tablet 11:01: daily. [address] cetirizine 2020-0 Yes 10mg Take 10 mg [facility] (ZYRTEC) 10 4-22 by mouth ity of mg tablet 11:01: daily. [address] cetirizine 2020-0 Yes 10mg Take 10 mg [facility] (ZYRTEC) 10 4-22 by mouth ity of mg tablet 11:01: daily. [address] cetirizine 2020-0 Yes 10mg Take 10 mg [facility] (ZYRTEC) 10 4-22 by mouth ity of mg tablet 11:01: daily. [address] cetirizine 2020-0 Yes 10mg Take 10 mg [facility] (ZYRTEC) 10 4-22 by mouth ity of mg tablet 11:01: daily. [address] cetirizine 2020-0 Yes 10mg Take 10 mg [facility] (ZYRTEC) 10 4-22 by mouth ity of mg tablet 11:01: daily. [address] cetirizine 2020-0 Yes 10mg Take 10 mg [facility] (ZYRTEC) 10 4-22 by mouth ity of mg tablet 11:01: daily. [address] cetirizine 2020-0 Yes 10mg Take 10 mg [facility] (ZYRTEC) 10 4-22 by mouth ity of mg tablet 11:01: daily. [address] cetirizine 2020-0 Yes 10mg Take 10 mg [facility] (ZYRTEC) 10 4-22 by mouth ity of mg tablet 11:01: daily. [address] cetirizine 2020-0 Yes 10mg Take 10 mg [facility] (ZYRTEC) 10 4-22 by mouth ity of mg tablet 11:01: daily. [address] cetirizine 2020-0 Yes 10mg Take 10 mg [facility] (ZYRTEC) 10 4-22 by mouth ity of mg tablet 11:01: daily. [address] cetirizine 2020-0 Yes 10mg Take 10 mg [facility] (ZYRTEC) 10 4-22 by mouth ity of mg tablet 11:01: daily. [address] cetirizine 2020-0 Yes 10mg Take 10 mg [facility] (ZYRTEC) 10 4-22 by mouth ity of mg tablet 11:01: daily. [address] cetirizine 2020-0 Yes 10mg Take 10 mg [facility] (ZYRTEC) 10 4-22 by mouth ity of mg tablet 11:01: daily. [address] cetirizine 2020-0 Yes 10mg Take 10 mg [facility] (ZYRTEC) 10 4-22 by mouth ity of mg tablet 11:01: daily. [address] cetirizine 2020-0 Yes 10mg Take 10 mg [facility] (ZYRTEC) 10 4-22 by mouth ity of mg tablet 11:01: daily. [address] cetirizine 2020-0 Yes 10mg Take 10 mg [facility] (ZYRTEC) 10 4-22 by mouth ity of mg tablet 11:01: daily. [address] triamcinolo 2020-0 Yes [id number] Apply to [facility] ne 4-22 area(s) 2 ity of acetonide 00:00: (two) [place] 0.1 % cream 00 times Medical daily. Branch triamcinolo 2020-0 Yes [id number] Apply to [facility] ne 4-22 area(s) 2 ity of acetonide 00:00: (two) [place] 0.1 % cream 00 times Medical daily. Branch triamcinolo 2020-0 Yes [id number] Apply to [facility] ne 4-22 area(s) 2 ity of acetonide 00:00: (two) [place] 0.1 % cream 00 times Medical daily. Branch triamcinolo 2020-0 Yes [id number] Apply to [facility] ne 4-22 area(s) 2 ity of acetonide 00:00: (two) [place] 0.1 % cream 00 times Medical daily. Branch triamcinolo 2020-0 Yes [id number] Apply to [facility] ne 4-22 area(s) 2 ity of acetonide 00:00: (two) [place] 0.1 % cream 00 times Medical daily. Branch triamcinolo 2020-0 Yes [id number] Apply to [facility] ne 4-22 area(s) 2 ity of acetonide 00:00: (two) [place] 0.1 % cream 00 times Medical daily. Branch triamcinolo 2020-0 Yes [id number] Apply to [facility] ne 4-22 area(s) 2 ity of acetonide 00:00: (two) [place] 0.1 % cream 00 times Medical daily. Branch triamcinolo 2020-0 Yes [id number] Apply to [facility] ne 4-22 area(s) 2 ity of acetonide 00:00: (two) [place] 0.1 % cream 00 times Medical daily. Branch triamcinolo 2020-0 Yes [id number] Apply to [facility] ne 4-22 area(s) 2 ity of acetonide 00:00: (two) [place] 0.1 % cream 00 times Medical daily. Branch triamcinolo 2020-0 Yes [id number] Apply to [facility] ne 4-22 area(s) 2 ity of acetonide 00:00: (two) [place] 0.1 % cream 00 times Medical daily. Branch triamcinolo 2020-0 Yes [id number] Apply to [facility] ne 4-22 area(s) 2 ity of acetonide 00:00: (two) [place] 0.1 % cream 00 times Medical daily. Branch triamcinolo 2020-0 Yes [id number] Apply to [facility] ne 4-22 area(s) 2 ity of acetonide 00:00: (two) [place] 0.1 % cream 00 times Medical daily. Branch triamcinolo 2020-0 Yes [id number] Apply to [facility] ne 4-22 area(s) 2 ity of acetonide 00:00: (two) [place] 0.1 % cream 00 times Medical daily. Branch triamcinolo 2020-0 Yes [id number] Apply to [facility] ne 4-22 area(s) 2 ity of acetonide 00:00: (two) [place] 0.1 % cream 00 times Medical daily. Branch triamcinolo 2020-0 Yes [id number] Apply to [facility] ne 4-22 area(s) 2 ity of acetonide 00:00: (two) [place] 0.1 % cream 00 times Medical daily. Branch triamcinolo 2020-0 Yes [id number] Apply to [facility] ne 4-22 area(s) 2 ity of acetonide 00:00: (two) [place] 0.1 % cream 00 times Medical daily. Branch triamcinolo 2020-0 Yes [id number] Apply to [facility] ne 4-22 area(s) 2 ity of acetonide 00:00: (two) [place] 0.1 % cream 00 times Medical daily. Branch triamcinolo 2020-0 Yes [id number] Apply to [facility] ne 4-22 area(s) 2 ity of acetonide 00:00: (two) [place] 0.1 % cream 00 times Medical daily. Branch triamcinolo 2020-0 Yes [id number] Apply to [facility] ne 4-22 area(s) 2 ity of acetonide 00:00: (two) [place] 0.1 % cream 00 times Medical daily. Branch triamcinolo 2020-0 Yes [id number] Apply to [facility] ne 4-22 area(s) 2 ity of acetonide 00:00: (two) [place] 0.1 % cream 00 times Medical daily. Branch furosemide 2018-06 Yes [id number] 20mg Take 1 [facility] 20 mg 2-30 tablet by ity of tablet 00:00: mouth [place] 00 daily. Medical Branch KCL 10 mEq 2018-06 Yes [id number] 10meq Take 1 [facility] tablet 2-30 tablet by ity of 00:00: mouth [place] 00 daily. Medical Branch furosemide 2018-06 Yes [id number] 20mg Take 1 [facility] 20 mg 2-30 tablet by ity of tablet 00:00: mouth [place] 00 daily. [facility] Branch KCL 10 mEq 2018-06 Yes [id number] 10meq Take 1 [facility] tablet 2-30 tablet by ity of 00:00: mouth [place] 00 daily. [facility] Branch furosemide 2018-06 Yes [id number] 20mg Take 1 [facility] 20 mg 2-30 tablet by ity of tablet 00:00: mouth [place] 00 daily. [facility] Branch KCL 10 mEq 2018-06 Yes [id number] 10meq Take 1 [facility] tablet 2-30 tablet by ity of 00:00: mouth [place] 00 daily. Medical Branch furosemide 2018-06 Yes [id number] 20mg Take 1 [facility] 20 mg 2-30 tablet by ity of tablet 00:00: mouth [place] 00 daily. Medical Branch KCL 10 mEq 2018-06 Yes [id number] 10meq Take 1 [facility] tablet 2-30 tablet by ity of 00:00: mouth [place] 00 daily. Medical Branch furosemide 2018-06 Yes [id number] 20mg Take 1 [facility] 20 mg 2-30 tablet by ity of tablet 00:00: mouth [place] 00 daily. Medical Branch KCL 10 mEq 2018-06 Yes [id number] 10meq Take 1 [facility] tablet 2-30 tablet by ity of 00:00: mouth [place] 00 daily. Medical Branch furosemide 2018-06 Yes [id number] 20mg Take 1 [facility] 20 mg 2-30 tablet by ity of tablet 00:00: mouth [place] 00 daily. Medical Branch KCL 10 mEq 2018-06 Yes [id number] 10meq Take 1 [facility] tablet 2-30 tablet by ity of 00:00: mouth [place] 00 daily. Medical Branch furosemide 2018-06 Yes [id number] 20mg Take 1 [facility] 20 mg 2-30 tablet by ity of tablet 00:00: mouth [place] 00 daily. Medical Branch KCL 10 mEq 2018-06 Yes [id number] 10meq Take 1 [facility] tablet 2-30 tablet by ity of 00:00: mouth [place] 00 daily. Medical Branch furosemide 2018-06 Yes [id number] 20mg Take 1 [facility] 20 mg 2-30 tablet by ity of tablet 00:00: mouth [place] 00 daily. Medical Branch KCL 10 mEq 2018-06 Yes [id number] 10meq Take 1 [facility] tablet 2-30 tablet by ity of 00:00: mouth [place] 00 daily. Medical Branch furosemide 2018-06 Yes [id number] 20mg Take 1 [facility] 20 mg 2-30 tablet by ity of tablet 00:00: mouth [place] 00 daily. Medical Branch KCL 10 mEq 2018-06 Yes [id number] 10meq Take 1 [facility] tablet 2-30 tablet by ity of 00:00: mouth [place] 00 daily. Medical Branch furosemide 2018-06 Yes [id number] 20mg Take 1 [facility] 20 mg 2-30 tablet by ity of tablet 00:00: mouth [place] 00 daily. Medical Branch KCL 10 mEq 2018-06 Yes [id number] 10meq Take 1 [facility] tablet 2-30 tablet by ity of 00:00: mouth [place] 00 daily. Medical Branch furosemide 2018-06 Yes [id number] 20mg Take 1 [facility] 20 mg 2-30 tablet by ity of tablet 00:00: mouth [place] 00 daily. Medical Branch KCL 10 mEq 2018-06 Yes [id number] 10meq Take 1 [facility] tablet 2-30 tablet by ity of 00:00: mouth [place] 00 daily. Medical Branch furosemide 2018-06 Yes [id number] 20mg Take 1 [facility] 20 mg 2-30 tablet by ity of tablet 00:00: mouth [place] 00 daily. Medical Branch KCL 10 mEq 2018-06 Yes [id number] 10meq Take 1 [facility] tablet 2-30 tablet by ity of 00:00: mouth [place] 00 daily. Medical Branch furosemide 2018-06 Yes [id number] 20mg Take 1 Univers 20 mg 2-30 tablet by ity of tablet 00:00: mouth [place] 00 daily. Medical Branch KCL 10 mEq 2018-06 Yes [id number] 10meq Take 1 Univers tablet 2-30 tablet by ity of 00:00: mouth [place] 00 daily. Medical Branch furosemide 2018-06 Yes [id number] 20mg Take 1 Univers 20 mg 2-30 tablet by ity of tablet 00:00: mouth [place] 00 daily. Medical Branch KCL 10 mEq 2018-06 Yes [id number] 10meq Take 1 Univers tablet 2-30 tablet by ity of 00:00: mouth [place] 00 daily. Medical Branch furosemide 2018-06 Yes [id number] 20mg Take 1 Univers 20 mg 2-30 tablet by ity of tablet 00:00: mouth [place] 00 daily. Medical Branch KCL 10 mEq 2018-06 Yes [id number] 10meq Take 1 Univers tablet 2-30 tablet by ity of 00:00: mouth [place] 00 daily. Medical Branch furosemide 2018-06 Yes [id number] 20mg Take 1 Univers 20 mg 2-30 tablet by ity of tablet 00:00: mouth [place] 00 daily. Medical Branch KCL 10 mEq 2018-06 Yes [id number] 10meq Take 1 Univers tablet 2-30 tablet by ity of 00:00: mouth [place] 00 daily. Medical Branch furosemide 2018-06 Yes [id number] 20mg Take 1 Univers 20 mg 2-30 tablet by ity of tablet 00:00: mouth [place] 00 daily. Medical Branch KCL 10 mEq 2018-06 Yes [id number] 10meq Take 1 Univers tablet 2-30 tablet by ity of 00:00: mouth [place] 00 daily. Medical Branch furosemide 2018-06 Yes [id number] 20mg Take 1 Univers 20 mg 2-30 tablet by ity of tablet 00:00: mouth [place] 00 daily. Medical Branch KCL 10 mEq 2018-06 Yes [id number] 10meq Take 1 Univers tablet 2-30 tablet by ity of 00:00: mouth [place] 00 daily. Medical Branch furosemide 2018-06 Yes [id number] 20mg Take 1 Univers 20 mg 2-30 tablet by ity of tablet 00:00: mouth [place] 00 daily. Medical Branch KCL 10 mEq 2018-06 Yes [id number] 10meq Take 1 Univers tablet 2-30 tablet by ity of 00:00: mouth [place] 00 daily. Medical Branch furosemide 2018-06 Yes [id number] 20mg Take 1 Univers 20 mg 2-30 tablet by ity of tablet 00:00: mouth [place] 00 daily. Medical Branch KCL 10 mEq 2018-06 Yes [id number] 10meq Take 1 Univers tablet 2-30 tablet by ity of 00:00: mouth [place] 00 daily. Medical Branch Immunizations Ordered Filled Immunization Date Status Comments [facility] e Immunization Name Name Influenza Virus 2022-03-06 Completed Universit y of Vaccine Quad IM, 00:00:00 [place] Me dical Preserv and ABX Branch Free 6 MO-64 YRS Influenza Virus 2022-03-06 Completed Universit y of Vaccine Quad IM, 00:00:00 [place] Me dical Preserv and ABX Branch Free 6 MO-64 YRS Influenza Virus 2022-03-06 Completed Universit y of Vaccine Quad IM, 00:00:00 [place] Me dical Preserv and ABX Branch Free 6 MO-64 YRS Influenza Virus 2022-03-06 Completed Universit y of Vaccine Quad IM, 00:00:00 [place] Me dical Preserv and ABX Branch Free 6 MO-64 YRS Influenza Virus 2022-03-06 Completed Universit y of Vaccine Quad IM, 00:00:00 [place] Me dical Preserv and ABX Branch Free 6 MO-64 YRS Influenza Virus 2022-03-06 Completed Universit y of Vaccine Quad IM, 00:00:00 [place] Me dical Preserv and ABX Branch Free 6 MO-64 YRS Influenza Virus 2022-03-06 Completed Universit y of Vaccine Quad IM, 00:00:00 [place] Me dical Preserv and ABX Branch Free 6 MO-64 YRS Influenza Virus 2022-03-06 Completed Universit y of Vaccine Quad IM, 00:00:00 [place] Me dical Preserv and ABX Branch Free 6 MO-64 YRS Influenza Virus 2022-03-06 Completed Universit y of Vaccine Quad IM, 00:00:00 [place] Me dical Preserv and ABX Branch Free 6 MO-64 YRS Influenza Virus 2022-03-06 Completed Universit y of Vaccine Quad IM, 00:00:00 [place] Me dical Preserv and ABX Branch Free 6 MO-64 YRS Influenza Virus 2022-03-06 Completed Universit y of Vaccine Quad IM, 00:00:00 [place] Me dical Preserv and ABX Branch Free 6 MO-64 YRS Influenza Virus 2022-03-06 Completed Universit y of Vaccine Quad IM, 00:00:00 [place] Me dical Preserv and ABX Branch Free 6 MO-64 YRS Influenza Virus 2022-03-06 Completed Universit y of Vaccine Quad IM, 00:00:00 [place] Me dical Preserv and ABX Branch Free 6 MO-64 YRS Influenza Virus 2020-04-05 Completed Universit y of Vaccine Quad .5 mL 00:00:00 [place] Medical IM 6+ MO Branch Influenza Virus 2020-04-05 Completed Universit y of Vaccine Quad .5 mL 00:00:00 [place] Medical IM 6+ MO Branch Influenza Virus 2020-04-05 Completed Universit y of Vaccine Quad .5 mL 00:00:00 [place] Medical IM 6+ MO Branch Influenza Virus 2020-04-05 Completed Universit y of Vaccine Quad .5 mL 00:00:00 [place] Medical IM 6+ MO Branch Influenza Virus 2020-04-05 Completed Universit y of Vaccine Quad .5 mL 00:00:00 [place] Medical IM 6+ MO Branch Influenza Virus 2020-04-05 Completed Universit y of Vaccine Quad .5 mL 00:00:00 [place] Medical IM 6+ MO Branch Influenza Virus 2020-04-05 Completed Universit y of Vaccine Quad .5 mL 00:00:00 [place] Medical IM 6+ MO Branch Influenza Virus 2020-04-05 Completed Universit y of Vaccine Quad .5 mL 00:00:00 [place] Medical IM 6+ MO Branch Influenza Virus 2020-04-05 Completed Universit y of Vaccine Quad .5 mL 00:00:00 [place] Medical IM 6+ MO Branch Influenza Virus 2020-04-05 Completed Universit y of Vaccine Quad .5 mL 00:00:00 [place] Medical IM 6+ MO Branch Influenza Virus 2020-04-05 Completed Universit y of Vaccine Quad .5 mL 00:00:00 [place] Medical IM 6+ MO Branch Influenza Virus 2020-04-05 Completed Universit y of Vaccine Quad .5 mL 00:00:00 [place] Medical IM 6+ MO Branch Influenza Virus 2020-04-05 Completed Universit y of Vaccine Quad .5 mL 00:00:00 [place] Medical IM 6+ MO Branch Influenza Virus 2020-04-05 Completed Universit y of Vaccine Quad .5 mL 00:00:00 [place] Medical IM 6+ MO Branch Influenza Virus 2020-04-05 Completed Universit y of Vaccine Quad .5 mL 00:00:00 [place] Medical IM 6+ MO Branch Influenza Virus 2020-04-05 Completed Universit y of Vaccine Quad .5 mL 00:00:00 [place] Medical IM 6+ MO Branch Influenza Virus 2020-04-05 Completed Universit y of Vaccine Quad .5 mL 00:00:00 [place] Medical IM 6+ MO Branch Influenza Virus 2020-04-05 Completed Universit y of Vaccine Quad .5 mL 00:00:00 [place] Medical IM 6+ MO Branch Influenza Virus 2020-04-05 Completed Universit y of Vaccine Quad .5 mL 00:00:00 [place] Medical IM 6+ MO Branch Influenza Virus 2020-04-05 Completed Universit y of Vaccine Quad .5 mL 00:00:00 [place] Medical 6+ MO Branch Vital Signs Vital Name Observation Time Observation Value Comments Source Systolic blood 2022-03-06 13:55:00 119 mm[Hg] Univer sity of pressure [facility] Diastolic blood 2022-03-06 13:55:00 79 mm[Hg] Unive rsity of pressure [facility] Heart rate 2022-03-06 13:55:00 94 [facility] Body temperature 2022-03-06 13:55:00 36.17 Brianna [facility] ersity [facility] Respiratory rate 2022-03-06 13:55:00 18 /min [facility] ersity [facility] Body height 2022-03-06 13:55:00 170.2 cm Universi ty of [facility] Body weight 2022-03-06 13:55:[address] [facility] BMI 2022-03-06 13:55:00 45.26 kg/m2 [facility] Oxygen saturation in 2022-03-06 13:55:00 97 /min [facility] Arterial blood by [facility] Pulse oximetry Branch Procedures Procedure Date / Time Performed Performing Clinician David e XR CHEST 2 VW 2022-08-07 16:41:46 Veronica Melton [facility] CBC WITH DIFF 2022-08-07 16:31:00 Veronica Melton Cassie [facility] RAPID RSV 2022-08-07 16:31:00 Veronica Melton Cassie [facility] PATIENT 2022-08-07 16:16:01 Doctor Unassigned, No [facility] FINANCIAL POLICY Name Medical Branch REFERRAL- 2022-04-25 06:01:00 Doctor Unassigned, No [facility] REQUEST/RESPONSE Name [facility] FLU VACC (), 2022-03-06 14:27:39 [facility]-64 [facility], .5ML, Medical Branc h IM, QUAD (FLUCELVAX) EXTERNAL PROVIDER - 2022-01-10 05:01:00 [facility] Name [facility] COMP. METABOLIC PANEL 2021-11-29 12:47:00 Baylee Goodson [facility] ([id number]) [facility] LIPID PANEL 2021-11-29 12:47:[address] [facility] ([id number])(TOTAL Medical Branch CHOLESTEROL, TRIGLYCERIDES, HDL) CBC WITHOUT DIFF 2021-11-29 12:47:00 Baylee Goodson [facility] Plan of Care Planned Activity Planned Date Details Comments Source Future Scheduled 2023-02-[address] [facility] 00:00:00 (Season Ended) [code = [place] INFLUENZA VACCINE (Season Ended)] Future Scheduled 2022-06-[address] [facility] Test 00:00:00 (12+) [code = Medical Center DEPRESSION SCREENING (12+)] Future Scheduled 2010 SHINGLES VACCINES ([address] [facility] Test 00:00:00 2) [code = SHINGLES Medical Center VACCINES (1 of 2)] Future Scheduled 2005 Lipid panel (procedure) [facility] Test 00:00:00 [code = 10609645] Medical Ce nter Future Scheduled 1981 Screening for malignant [facility] Test 00:00:00 neoplasm of cervix Medical C enter (procedure) [code = 274739355] Future Scheduled 1979-12-06 DTAP/TDAP/TD VACCINES [facility] 00:00:00 (1 - Tdap) [code = Medical C enter DTAP/TDAP/TD VACCINES (1 - Tdap)] Future Scheduled 1978 HEPATITIS C SCREENING [facility] 00:00:00 [code = HEPATITIS C Medical Center SCREENING] Future Scheduled [address] [facility] Test 00:00:00 Counseling and Medical Cente r Screening (12+) [code = Tobacco Cessation Counseling and Screening (12+)] Future Scheduled 1961-06-06 COVID-19 VACCINE (#1) [facility] 00:00:00 [code = COVID-[address] VACCINE (#1)] Future Scheduled 1960 Sigmoidoscopy [code = [facility] 00:00:00 Sigmoidoscopy] Medical Cente r Future Scheduled 1960 Screening for malignant [facility] Test 00:00:00 neoplasm of breast Medical C enter (procedure) [code = 765305947] Future Scheduled 1960 CT Colonography (combo) [facility] Test 00:00:00 [code = CT Colonography [facility] (combo)] Future Scheduled 1960 Screening for malignant [facility] Test 00:00:00 neoplasm of colon Medical Ce nter (procedure) [code = 893668177] Future Scheduled 1960 Screening for malignant [facility] Test 00:00:00 neoplasm of colon Medical Ce nter (procedure) [code = 534478278] Future Scheduled 1960 Screening for malignant [facility] Test 00:00:00 neoplasm of colon Medical Ce nter (procedure) [code = 172812428] Future Scheduled 1960 Screening for malignant [facility] Test 00:00:00 neoplasm of colon Medical Ce nter (procedure) [code = 562703248] Encounters Start End Encounter Admission Attending Care Care Encounter Source Date/Time Date/Time Type Type Clinicians Facility Department ID 2021-04-08 Emergency [facility] [id number] Univers 05:53:11 ity of [facility] 2022-10-02 2022-10-02 [facility] 1.2.840.114 [id number] Univers 00:00:00 00:00:00 [facility] 350.1.13.10 it y of [place] 4.2.7.2.686 Joe as JOVI?BLEA [id number] [facility] 044 [facility] OFFICE [facility] 2022-09-02 2022-09-02 [facility] 1.2.840.114 [id number] Univers 00:00:00 00:00:00 [facility] 350.1.13.10 it y of [place] 4.2.7.2.686 Joe as JOVI?BLEA [phone] [facility] 044 [facility] 2022-08-17 2022-08-17 Nurse Plastics Lazaro, Malika Lab Main [facility] 1.2.8 40.114 [id number] Univers 12:15:00 12:30:00 Visit Pritesh Oswald 350.1.13.10 ity of [facility] [place].2.[place].2.[place] [id number] [facility] 353 [facility] 2022-08-17 2022-08-17 Outpatient Sofia OSWALD [facility] [id number] Univers 12:15:00 12:15:00 PRITESH ity of [facility] 2022-08-08 2022-08-08 Hospital PATRICA Oswald 1.2.840.114 [id number] Univers 09:19:00 23:59:00 Encounter Pritesh Riley 350.1.13.10 ity of [facility] 4.2.7.2.686 Joe as [id number] [address] 2022-08-08 2022-08-08 Outpatient Sofia OSWALD [facility] ACO [id number] Univers 00:00:00 23:59:00 PRITESH itgiorgi [facility] 2022-08-07 2022-08-07 Outpatient R RADIOLOGY [facility] [id number] Univers 10:18:14 23:59:00 ity of [facility] 2022-08-07 2022-08-07 Hospital Radiology [facility] 1.2.840.114 [id number] Univers 10:18:14 23:59:00 Encounter RYAN 350.1.13.10 ity of [place] [id number] [facility] [address] 2022-08-07 2022-08-07 Nurse Plastics Malika Willis Lab Main [facility] 1.2.8 40.114 [id number] Univers 11:15:00 11:30:00 Visit Nelly Pritesh DAVIS 350.1.13.10 ity of [place].2.686 [place] [facility] [phone] Ar kennedy TERRELL [address] BUILDING 2022-08-07 2022-08-07 Orders Doctor TRANG 1.2.840.114 [id number] Univers 00:00:00 00:00:00 Only Unassigned, NINO 350.1.13.10 ity of [place] [facility] 4.2.7.2.686 Joe as [phone] [facility] [address] 2022-08-03 2022-08-03 Erik [facility] 1.2.840.114 [id number] Univers 00:00:00 00:00:00 [facility] 350.1.13.10 it y of [place] 4.2.7.2.686 Joe as JOVI?BLEA [phone] Ar kennedy CANOEY [address] [place] MEDICAL OFFICE BUILDING 2022-04-27 2022-04-27 Outpatient R FERNANDO, [facility] [id number] Univers 11:30:00 11:30:00 CATA [facility] 2022-04-25 2022-04-25 Orders Doctor TRANG 1.2.840.114 [id number] Univers 00:00:00 00:00:00 Only Unassigned, NINO 350.1.13.10 ity of [place] [facility] 4.2.7.2.686 Joe as [id number] [address] 2022-04-25 2022-04-25 Telephone [facility] 1.2.384.453 [id number] Univers 00:00:00 00:00:00 Critical access hospital 350.1.13.10 it y of Cassiejordan [facility] 4.2.7.2.686 [place] as JOVI?BLEA [id number] [address] OFFICE [facility] 2022-03-06 2022-03-06 [facility] [id number] Univers 09:00:00 11:45:43 SENDIL ity of [facility] 2022-03-06 2022-03-06 Office [facility] 1.2.840.114 [id number] Univers 09:00:00 09:30:00 Visit Baylee DAVIS 350.1.13.10 ity [place] [id number] [address] 2022-01-10 2022-01-10 Orders Doctor TRANG 1.2.840.114 [id number] Univers 00:00:00 00:00:00 Only Unassigned, NINO 350.1.13.10 ity of [place] [facility] 4.2.7.2.686 Joe as [id number] [address] 2022-01-09 2022-01-09 Refill [facility] 1.2.840.114 [id number] Univers 00:00:00 00:00:00 Sendil Citlaly DAVIS 350.1.13.10 ity [place] [id number] [facility] NAL [address] [place] [address] 2022-01-07 2022-01-07 [facility]jasson [facility] 1.2.840.114 [id number] Univers 00:00:00 00:00:00 Favian HEALTH 350.1.13.10 it y of [place] 4.2.7.2.686 Joe as JOVI?BLEA [id number] Ar dical KNEY 044 [facility] BUILDING 2022-01-07 2022-01-07 Refill Hamzah [facility] 1.2.840.[id number] [place] [address] 00:00:00 00:00:00 Baylee DAVIS 350.1.13.10 ity [place] [id number] Ar dical NAL 059 [facility] 2022-01-03 2022-01-03 Outpatient BCM BCM [id number] [facility] 08:56:28 12:04:57 Colleg e [facility] Medicin e 2022-01-03 2022-01-03 Outpatient BCM BCM [id number] [facility] 08:53:39 11:52:59 Colleg e [facility] Medicin e 2022-01-02 2022-01-02 Outpatient BCM BCM [id number] [facility] 13:30:52 19:36:27 Colleg e of Medicin e 2021-12-27 2021-12-27 Outpatient BONEFAS, BCM BCM [id number] [facility] 00:00:00 00:00:00 AISHA Le ege of Medicin e 2021-12-07 2021-12-07 Outpatient R HAMZAH, [facility] [id number] Univers 14:30:00 14:30:00 SENDIL [facility] 2021-12-07 2021-12-07 Outpatient R HAMZAH [facility] [id number] Univers 14:30:00 14:30:00 SENDIL [facility] 2021-11-29 2021-11-29 Outpatient BONEFAS, BCM BCM [id number] [facility] 14:12:13 15:59:04 AISHA wilsone of Medicin e 2021-11-29 2021-11-29 Nurse Plastics Malika Willis [facility] Main [facility] 1.2.8 40.114 [id number] [facility] 07:45:00 08:00:00 Visit Baylee Goodson 350.1.13. 10 [place].2.[place] [id number] Ar dical NAL 353 [facility] 2021-11-29 2021-11-29 Outpatient R HAMZAH [facility] [id number] Univers 07:45:00 07:45:00 BAYLEE villa [facility] 2021-11-29 2021-11-29 Emile Bloom [facility] [id number] 00:00[facility] 00:00:00 Encounter [facility] 2021-11-29 2021-11-29 Telephone [facility] 1.2.813.496 [id number] Univers 00:00:00 00:00:00 Favian HEALTH 350.1.13.10 it y of [place] 4.2.7.2.686 Joe as JOVI?BLEA [id number] Ar dical KNEY 044 [facility] OFFICE [facility] 2021-11-02 2021-11-02 Patient [facility] 1.2.840.114 [id number] Univers 00:00:00 00:00:00 Secure Msg Favian HEALTH 350.1.13.10 ity of [place] 4.2.7.2.686 Joe as JOVI?BLEA [id number] Ar dical KNEY 044 [facility] OFFICE [facility] 2021-11-02 2021-11-02 Telephone [facility] 1.2.556.464 [id number] Univers 00:00:00 00:00:00 Favian HEALTH 350.1.13.10 it y of [place] 4.2.7.2.686 Joe as JOVI?BLEA [phone] Ar dical KNEY [address] [place] [address] OFFICE [facility] 2021-11-02 2021-11-02 Patient [facility] 1.2.840.114 [id number] Univers 00:00:00 00:00:00 Secure Msg Donna M HEALTH 350.1.13.10 ity of [place] 4.2.7.2.686 Joe as JOVI?BLEA [id number] Ar dical KNEY [address] [place] [address] OFFICE [facility] 2021-10-31 2021-10-31 Outpatient R TYLER [facility] [id number] Univers 13:20:16 23:59:00 FAVIAN villa [facility] 2021-10-31 2021-10-31 Hospital [facility] 1.2.840.114 [id number] Univers 13:20:16 23:59:00 Encounter Favian DAVIS 350.1.13.10 ity of [place].2.[place] [id number] [facility] [address] 2021-10-31 2021-10-31 [facility] [id number] Univers 13:20:16 23:59:00 FAVIAN villa [facility] 2021-10-23 2021-10-23 Outpatient R LINDA [facility] [id number] Univers 10:40:00 11:35:23 ADRIANNA petit f [facility] 2021-10-23 2021-10-23 Urgent Latia Raman [facility] 1.2.840.114 [id number] Univers 10:40:00 11:35:23 Adrianna Marsh [facility] 350.1.13.10 ity of [place] 4.2.7.2.686 Joe as JOVI?BLEA [id number] [facility] [address] MEDICAL OFFICE BUILDING 2021-10-13 2021-10-13 Telephone Team, [facility] TRANG 1..840.114 [id number] Univers 00:00:00 00:00:00 Health NINO 350.1.13.10 it y of [facility] 4.2.7.2.686 [place] [phone] [facility] [address] 2021-10-12 2021-10-12 [facility]jasson [facility] 1.2.840.114 [id number] Univers 00:00:00 00:00:00 Baylee DAVIS 350.1.13.10 ity of [place] 4.2.7.2.686 [place] [facility] [id number] [facility] [address] BUILDING 2021-10-09 2021-10-09 Refjasson [facility] 1.2.840.114 [id number] Univers 00:00:00 00:00:00 Favian HEALTH 350.1.13.10 it y of [place] 4.2.7.2.686 Joe as JOVI?BLEA [id number] Ar kennedy CANOEY 044 [facility] OFFICE [facility] 2021-10-09 2021-10-09 [facility] 1.2.840.114 [id number] Univers 00:00:00 00:00:00 Baylee DAVIS 350.1.13.10 ity of [place] [phone] Ar dicri NAL [address] [place] [address] 2021-09-09 2021-09-09 [facility] 1.2.840.114 [id number] Univers 00:00:00 00:00:00 Favian HEALTH 350.1.13.10 it y of [place] 4.2.7.2.686 Joe as PROFESSIO [id number] [address] 2021-09-09 2021-09-09 [facility] 1.2.840.114 [id number] Univers 00:00:00 00:00:00 Baylee DAVIS 350.1.13.10 ity of [place].2.[place] [id number] [facility] NAL [address] [place] [address] 2021-09-09 2021-09-09 [facility] 1.2.840.114 [id number] Univers 00:00:00 00:00:00 Baylee DAVIS 350.1.13.10 ity of [place].2.[place] [id number] [facility] NAL [address] [place] [address] 2021-07-11 2021-07-11 [facility] 1.2.840.114 [id number] Univers 00:00:00 00:00:00 Favian HEALTH 350.1.13.10 it y of [place] 4.2.7.2.686 Joe as PROFESSIO [id number] [address] 2021-06-23 2021-06-23 Outpatient Sofia RAMAN [facility] [id number] Univers 09:40:00 10:00:56 LATIA ity of [facility] 2021-06-23 2021-06-23 Urgent Brett Melton [facility] 1.2.840.114 [id number] Univers 09:40:00 10:00:00 Reji Raman, Latia HEALTH 350.1.13.10 ity of [facility] 4.2.7.2.686 Joe as JOVI?BLEA [id number] [facility] KAUSHAL 370 [facility] OFFICE BUILDING 2021-05-11 2021-05-11 [facility] 1.2.840.114 [id number] Univers 00:00:00 00:00:00 [place] HEALTH 350.1.13.10 it y of [facility] 4.2.7.2.686 Joe as PROFESSIO [id number] Ar dicri NAL 044 [facility] ONE 2021-04-12 2021-04-12 [facility] 1.2.840.114 [id number] Univers 00:00:00 00:00:00 [facility] 350.1.13.10 it y of [place] 4.2.7.2.686 Joe as PROFESSIO [id number] Ar dical NAL 044 [facility] 2021-04-07 2021-04-07 [facility] 1.2.773.504 [id number] Univers 00:00:00 00:00:00 [facility] 350.1.13.10 it y of [place] 4.2.7.2.686 Joe as JOVI?BLEA [id number] Ar dicri KAUSHAL 044 [facility] OFFICE BUILDING 2021-02-16 2021-02-16 [facility] 1.2.840.114 [id number] Univers 00:00:00 00:00:00 Baylee [place] 350.1.13.10 ity of [place].2.[place] [id number] Ar dical nal 059 [facility] 2021-02-02 2021-02-02 [facility] 1.2.840.114 [id number] Univers 09:42:20 23:59:00 Encounter [facility] 350.1.13.10 ity [place] 4.2.7.2.686 Joe as Jovi?Blea [id number] Me dical kney [address] Medical Office Building 2021-02-02 2021-02-02 Hospital [facility] 1.2.840.114 [id number] Univers 09:37:47 09:41:00 Encounter [facility] 350.1.13.10 ity of [place] 4.2.7.2.[address] [place] [facility] [phone] [facility] Primary & [address] [facility] 2021-02-02 2021-02-02 Office [facility] 1.2.840.114 [id number] Univers 09:00:04 09:15:[address] [facility] 350.1.13.10 it y of [place] 4.2.7.2.686 Joe as Jovi?Blea [id number] Ar dical [facility] [address] [place] Medical Office [facility] 2021-02-02 2021-02-02 Outpatient [facility] [id number] Univers 09:15:00 09:15:00 FAVIAN ity of [facility] 2021-02-02 2021-02-02 Letter [facility] 1.2.840.114 [id number] Univers 00:00:00 00:00:00 (Out) [facility] 350.1.13.10 it y of [place] 4.2.7.2.686 Joe as Jovi?Blea [phone] Ar dical [facility] [address] Medical Office Building 2021-01-24 2021-01-24 Orders Doctor TRANG 1.2.840.114 [id number] Univers 00:00:00 00:00:00 Only Unassigned, NINO 350.1.13.10 ity of [place] [facility] 4.2.7.2.686 Joe as [phone] [facility] [address] 2021-01-21 2021-01-21 [facility] 1.2.840.114 [id number] Univers 00:00:00 00:00:00 [facility] 350.1.13.10 it y of [place] 4.2.7.2.686 Joe as Professio [phone] [address] Office [facility] One 2021-01-18 2021-01-18 Outpatient R JACKIE [facility] [id number] Univers 14:00:00 14:00:00 MARY ity of [facility] 2021-01-18 2021-01-18 Nurse Therapy, Adc Covid Infusion [facility] 1.2.840.114 [id number] Univers 11:18:39 12:18:39 Visit Mary Rolle 350.1.13.10 ity of [place].2.7.2.686 [place] Surgical [phone] [facility] [address] 2021-01-17 2021-01-17 Letter TRANG Denson 1.2.840.114 [id number] Univers 00:00:00 00:00:00 (Out) Bailee ONEILL 350.1.13.10 it y of HOSPITAL 4.2.7.2.686 Joe as [phone] [facility] [address] 2021-01-17 2021-01-17 Telephone Provider, [facility] 1.2.840.114 [id number] Univers 00:00:00 00:00:00 [facility] 350.1.13.10 ity of Care [place] 4.2.7.2.686 Joe as Professio [phone] [address] Office [facility] 2021-01-17 2021-01-17 Patient Doctor [facility] 1.2.840.114 [id number] Univers 00:00:00 00:00:00 Secure Msg Unassigned, Health 350.1.13.10 ity of [place] 4.2.7.2.686 Joe as Professio [phone] [address] Office [facility] 2021-01-16 2021-01-16 Hospital Abdiel [facility] 1.2.840.114 [id number] Univers 11:27:26 23:59:00 Encounter s Federicomoose Davis 350.1.13.10 ity of [place] 4.2.7.2.686 [place] [phone] [facility] [address] 2021-01-16 2021-01-16 Urgent Provider, [facility] 1.2.840.114 [id number] Univers 10:21:39 11:06:27 [facility] 350.1.13. 10 ity of [place] 4.2.7.2.686 Joe as Professio [phone] [address] Office [facility] 2021-01-16 2021-01-16 Outpatient R [facility] [id number] Univers 10:40:00 10:40:00 , ASHLEY ity [facility] 2021-01-15 2021-01-15 [facility] 1.2.840.114 [id number] Univers 00:00:00 00:00:00 [facility] 350.1.13.10 it y of [place] 4.2.7.2.686 Joe as Professio [phone] [address] Office [facility] 2020-12-24 2020-12-24 Julissa [facility] 1.2.958.953 [id number] Univers 00:00:00 00:00:00 [facility] 350.1.13.10 it y of [place] 4.2.7.2.686 [place] as Professio [phone] [address] Office [facility] 2020-12-23 2020-12-23 Outpatient R [facility] [id number] Univers 09:20:00 09:20:00 ity of [facility] 2020-12-23 2020-12-23 Urgent Mary Grace Gonzalez [facility] 1.2.840.114 [id number] Univers 08:55:54 09:15:54 Care [facility] 350.1.13.10 ity of [place] 4.2.7.2.686 Joe as Professio [phone] [address] Office [facility] 2020-12-22 2020-12-22 Outpatient R [facility] [id number] Univers 14:00:00 14:00:00 ity [facility] 2020-09-17 2020-09-17 [facility] 1.2.840.114 [id number] Univers 00:00:00 00:00:00 [facility] 350.1.13.10 it y of [place] 4.2.7.2.686 Joe as Professio [phone] Ar dical nal [address] Building One 2020-09-06 2020-09-06 Office Fenton [facility] 1.2.840.114 [id number] Univers 14:37:52 15:07:[address] [facility] 350.1.13.10 it y of [place] 4.2.7.2.686 Joe as Professio [phone] Ar dic[address] Office Building One 2020-09-06 2020-09-06 [facility] [id number] Univers 14:45:00 14:45:00 FAVIAN it of [facility] 2020-09-06 2020-09-06 Letter [facility] 1.2.840.114 [id number] Univers 00:00:00 00:00:00 (Out) [facility] 350.1.13.10 it y of [place] 4.2.7.2.686 Joe as Professio [phone] [address] Office [facility] 2020-09-02 2020-09-02 Urgent LindaAdrianna eubanks [facility] 1.2.840 .114 [id number] Univers 16:31:37 16:51:37 Care Kyara Griffith [facility] 350.1.13.10 ity of [place] 4.2.7.2.686 Joe as Professio [phone] Ar dical nal [address] [place] [address] Office Building One 2020-09-02 2020-09-02 Outpatient R [facility] [id number] Univers 16:40:00 16:40:00 ity of [facility] 2020-08-21 2020-08-21 Patient Owen [facility] 1.2.840.114 [id number] Univers 00:00:00 00:00:00 Outreach Goyo [facility] 350.1.13.10 i ty of Todd [facility] 4.2.7.2.686 [place] [facility] [phone] [address] 2020-08-18 2020-08-18 [facility]jasson [facility] 1.2.840.114 [id number] Univers 00:00:00 00:00:00 [facility] 350.1.13.10 it y of [place] 4.2.7.2.686 Joe as Professio [phone] [address] One 2020-06-30 2020-06-30 Hospital [facility] 1.2.840.114 [id number] Univers 07:45:22 23:59:00 Encounter Favian [place] 350.1.13.10 ity of [place] 4.2.7.2.686 [place] [facility] [phone] [address] 2020-06-30 2020-06-30 Outpatient Sofia FENTON [facility] [id number] Univers 00:00:00 00:00:00 [facility] 2020-06-23 2020-06-23 Outpatient Sofia FENTON [facility] [id number] Univers 13:45:00 13:45:00 [facility] 2020-06-23 2020-06-23 Office [facility] 1.2.840.114 [id number] Univers 13:28:58 13:43:58 Visit [facility] 350.1.13.10 it y of [place] 4.2.7.2.686 Joe as Professio [phone] [address] One 2020-06-19 2020-06-19 [facility]jasson [facility] 1.2.840.114 [id number] Univers 00:00:00 00:00:00 [facility] 350.1.13.10 it y of [place] 4.2.7.2.686 Joe as Professio [phone] [facility] nal [address] [place] [address] One 2020-05-31 2020-05-[address] [facility] 1.2.840.114 [id number] Univers 00:00:00 00:00:00 (Out) Patient Health 350.1.13.10 it y of Does Not [place] 4.2.7.2.686 [place] Professio [phone] [facility] [address] Office [facility] 2020-05-30 2020-05-30 Urgent Provider, [facility] 1.2.840.114 [id number] Univers 11:29:38 12:14:04 Care Latia Raman [facility] 350.1.13.10 ity of [place] 4.2.7.2.686 Joe as Professio [phone] [address] 2020-05-30 2020-05-30 Outpatient R DANISHA [facility] [id number] Univers 11:20:00 11:20:00 LATIA ity [facility] 2020-05-18 2020-05-18 Telephone Hamzah [facility] 1.2.340.268 [id number] Univers 00:00:00 00:00:00 Baylee Davis 350.1.13.10 ity of [place].2.7.2.686 [place] [phone] [place] [id number] [facility] 2020-05-14 2020-05-14 Laboratory Pc, Adc Echo Room 1 - [facility] 1 .2.840.114 [id number] Univers 08:35:14 09:35:14 Only Nathen Kan 350.1.13.10 ity of [place] 4.2.7.2.686 [place] [phone] [place] 735259 [facility] 2020-05-14 2020-05-14 Outpatient R [facility] [id number] Univers 09:00:00 09:00:00 ity of [facility] 2020-05-14 2020-05-14 Orders Doctor COSTELLO 1.2.840.114 [id number] Univers 00:00:00 00:00:00 Only Unassigned, NINO 350.1.13.10 ity of [place] [facility] 4.2.7.2.686 Joe as [phone] [address] 2020-05-05 2020-05-05 Orders Doctor TRANG 1.2.840.114 [id number] Univers 00:00:00 00:00:00 Only Unassigned, NINO 350.1.13.10 ity of [place] [facility] 4.2.7.2.686 Joe as [phone] [address] 2020-04-29 2020-04-29 Nurse Plastics 2, Adc Lab [facility] 1.2.840.114 [id number] Univers 09:38:28 09:53:28 Visit Baylee Goodson 350.1.13. 10 ity of [place] 4.2.7.2.686 [place] Profess[place] [phone] [facility] 353 [facility] 2020-04-29 2020-04-29 Office [facility] 1.2.840.114 [id number] Univers 08:56:02 09:36:03 Visit Baylee Davis 350.1.13.10 ity of [place] 4.2.7.2.686 [place] Profess[place] [phone] [facility] 059 [facility] 2020-04-29 2020-04-29 Out[facility] [id number] Univers 09:00:00 09:00:00 BAYLEE [facility] 2020-04-26 2020-04-26 Refill [facility] 1.2.840.114 [id number] Univers 00:00:00 00:00:00 [facility] 350.1.13.10 it y of [place] 4.2.7.2.686 Joe as Professio [phone] [facility] 044 [facility] 2020-04-05 2020-04-05 Office [facility] 1.2.840.114 [id number] Univers 12:34:36 13:07:[address] [facility] 350.1.13.10 it y of [place] 4.2.7.2.686 Joe as Professio [phone] [facility] 044 [facility] 2020-04-05 2020-04-05 Outpatient [facility] [id number] Univers 13:00:00 13:00:00 FAVIAN [facility] 2020-04-01 2020-04-01 Refill [facility] 1.2.840.114 [id number] Univers 00:00:00 00:00:00 Baylee Davis 350.1.13.10 ity of [place] 4.2.7.2.686 [place] Profess[place] [phone] Ar dical nal 059 [facility] 2020-03-29 2020-03-29 Refill [facility] 1.2.840.114 [id number] Univers 00:00:00 00:00:00 [facility] 350.1.13.10 it y of [place] 4.2.7.2.686 Joe as Professio [phone] Ar dical nal [address] Office [facility] 2020-03-25 2020-03-25 Outpatient [facility] [id number] Univers 14:30:00 14:30:00 SENDIL ity of [facility] 2020-03-25 2020-03-25 Orders Doctor TRANG 1.2.840.114 [id number] Univers 00:00:00 00:00:00 Only Unassigned, NINO 350.1.13.10 ity of [place] [facility] 4.2.7.2.686 Joe as [phone] [address] 2019-07-18 2020-02-11 Office [facility] 1.2.576.514 [id number] Univers 08:02:23 09:52:43 Visit [facility] 350.1.13.10 it y of Surgical 4.2.7.2.686 Joe as Specialti [phone] Ar dical es 198 [facility] 2020-01-07 2020-01-07 Telephone [facility] 1.2.183.825 [id number] Univers 00:00:00 00:00:00 Favian [place] 350.1.13.10 i ty of [place] 4.2.7.2.686 [place] Profess[place] [phone] Ar dical nal 044 [facility] 2020-01-02 2020-01-02 Refill [facility] 1.2.840.114 [id number] Univers 00:00:00 00:00:00 [facility] 350.1.13.10 it y of [place] 4.2.7.2.686 Joe as Professio [phone] Ar dical nal 044 [facility] 2020-01-01 2020-01-01 Outpatient R JYOTHI [facility] [id number] Univers 09:15:00 09:15:00 JERRELL allen o f [facility] 2019-12-29 2019-12-29 Outpatient [facility] [id number] Univers 15:30:00 15:30:00 FAVIAN villa [facility] 2019-12-29 2019-12-29 Orders Doctor TRANG 1.2.840.114 [id number] Univers 00:00:00 00:00:00 Only Unassigned, NINO 350.1.13.10 [facility] 4.2.7.2.686 Joe as [phone] [address] 2019-12-24 2019-12-24 Erik [facility] 1.2.840.114 [id number] Univers 00:00:00 00:00:00 [facility] 350.1.13.10 it y of [place] 4.2.7.2.686 Joe as Professio [phone] Ar dical nal [address] [place] [address] Office [facility] 2019-12-24 2019-12-24 Erik [facility] 1.2.840.114 [id number] Univers 00:00:00 00:00:00 [facility] 350.1.13.10 it y of [place] 4.2.7.2.686 Joe as Professio [phone] Ar dical nal [address] Office [facility] 2019-12-22 2019-12-22 Urgent Pob1, Acute Care Clinic [facility] 1. 2.840.114 [id number] Univers 09:12:06 09:32:06 Oswaldo Perea [facility] 350.1.13.10 ity of [place] 4.2.7.2.686 Joe as Professio [phone] Ar dical nal [address] Building One 2019-12-22 2019-12-22 Outpatient R [facility] [id number] Univers 09:20:00 09:20:00 ity of [facility] 2019-12-22 2019-12-22 Outpatient R [facility] [id number] Univers 08:40:00 08:40:00 ity of [facility] 2019-12-18 2019-12-18 Outpatient R ANENE, [facility] [id number] Univers 16:20:00 16:20:00 OSWALDO ity of [facility] 2019-12-18 2019-12-18 Urgent Provider, [facility] 1.2.840.114 [id number] [facility] 14:59:20 15:19:20 Care Oswaldo [facility] 350.1.13.10 ity of [place] 4.2.7.2.686 Joe as Professio [phone] [facility] [address] Office [facility] 2019-12-17 2019-12-17 Telephone Tyler [facility] 1.2.710.796 [id number] Univers 00:00:00 00:00:00 [facility] 350.1.13.10 it y of [place] 4.2.7.2.686 Joe as Professio [phone] [facility] 044 [facility] 2019-11-19 2019-11-19 Patient Doctor TRANG 1.2.840.114 [id number] Univers 00:00:00 00:00:00 Secure Msg Unassigned, NINO 350.1.13.10 ity of [place] [facility] 4.2.7.2.686 Joe as [phone] [address] 2019-11-17 2019-11-17 Patient Doctor TRANG 1.2.840.114 [id number] Univers 00:00:00 00:00:00 Secure Msg Unassigned, NINO 350.1.13.10 ity of [place] [facility] 4.2.7.2.686 Joe as [phone] [address] 2019-11-05 2019-11-05 Nurse Plastics Lazaro, Malika Lab Main [facility] 1.2.8 40.114 [id number] Univers 13:13:26 13:28:26 Visit Kyara Griffith 350.1.13.10 ity of [place] 4.2.7.2.686 [place] [phone] [facility] 353 [facility] 2019-11-05 2019-11-05 Urgent Provider, [facility] 1.2.840.114 [id number] Univers 12:25:04 12:58:12 Care Latrice, Kyara A Health 350.1.13.10 ity of [place] 4.2.7.2.686 Joe as Professio [phone] [address] 2019-11-05 2019-11-05 Outpatient R [facility] [id number] Univers 12:20:00 12:20:00 ity of [facility] 2019-11-05 2019-11-05 Orders Doctor TRANG 1.2.840.114 [id number] Univers 00:00:00 00:00:00 Only Unassigned, NINO 350.1.13.10 ity of [place] [facility] 4.2.7.2.686 Joe as [phone] [address] 2019-11-05 2019-11-05 Telephone [facility] 1.2.616.086 [id number] Univers 00:00:00 00:00:00 Kyara A Health 350.1.13.10 i ty of [place] 4.2.7.2.686 Joe as Professio [phone] [address] 2019-10-03 2019-10-03 Kirit [facility] 1.2.840.114 [id number] Univers 00:00:00 00:00:00 (Out) Favian Davis 350.1.13.10 i ty of [place] 4.2.7.2.686 [place] [phone] [address] 2019-10-03 2019-10-03 Telephone [facility] 1.2.996.897 [id number] Univers 00:00:00 00:00:00 Kyara A Health 350.1.13.10 i ty of [place] 4.2.7.2.686 Joe as Professio [phone] [address] Office [facility] 2019-10-02 2019-10-02 Telephone [facility] 1.2.064.562 [id number] Univers 00:00:00 00:00:00 Kyara A Health 350.1.13.10 i ty of [place] 4.2.7.2.686 Joe as Professio [phone] [address] 2019-10-01 2019-10-01 Outpatient R [facility] RAD [id number] Univers 11:52:22 23:59:00 KYARA ity of [facility] 2019-10-01 2019-10-01 [facility] 1.2.840.114 [id number] Univers 11:52:00 23:59:00 Encounter Kyara Davis 350.1.13.10 ity of [place] 4.2.7.2.686 [place] [facility] [phone] [facility] [address] 2019-10-01 2019-10-01 Urgent Pob1, Acute Care Clinic [facility] 1. 2.840.114 [id number] Univers 10:47:28 12:49:51 Care Jaxon Fallon [facility] 350.1.13.10 ity of [place] 4.2.7.2.686 Joe as Professio [phone] Ar dical nal 044 [facility] 2019-09-15 2019-09-15 Erik [facility] 1.2.840.114 [id number] Univers 00:00:00 00:00:00 [facility] 350.1.13.10 it y of [place] 4.2.7.2.686 Joe as Professio [phone] Ar dical nal [address] [place] [address] 2019-08-27 2019-08-27 Kirit [facility] 1.2.781.780 [id number] Univers 00:00:00 00:00:00 (Out) Kenneth L Health 350.1.13.10 it y of Surgical 4.2.7.2.686 Joe as Specialti [phone] Ar dical es 198 [facility] 2019-08-26 2019-08-26 Kirit [facility] 1.2.840.114 [id number] Univers 00:00:00 00:00:00 (Out) Caroline S Health 350.1.13.10 it y of Surgical 4.2.7.2.686 Joe as Specialti [phone] Ar dical es 198 [facility] 2019-08-16 2019-08-16 Erik [facility] 1.2.840.114 [id number] Univers 00:00:00 00:00:00 [facility]avian [facility] 350.1.13.10 it y of [place] 4.2.7.2.686 Joe as Professio [phone] Ar dical nal [address] [place] Office [facility] 2019-08-05 2019-08-05 Office [facility] 1.2.840.114 [id number] Univers 08:32:48 08:47:48 Visit Caroline S Health 350.1.13.10 it y of Surgical 4.2.7.2.686 Joe as Specialti [phone] Ar dical es 198 [facility] 2019-08-05 2019-08-05 Out[facility] [id number] Univers 08:45:00 08:45:00 CAROLINE ity of [facility] 2019-08-05 2019-08-05 Letter [facility] 1.2.840.114 [id number] Univers 00:00:00 00:00:00 (Out) Caroline S Health 350.1.13.10 it y of Surgical 4.2.7.2.686 Joe as Specialti [phone] Ar dical es 198 [facility] 2019-07-29 2019-07-29 Office Rubio [facility] 1.2.840.114 [id number] Univers 15:35:26 16:31:35 Visit Oswaldo Health 350.1.13.10 it y of [place] 4.2.7.2.686 Joe as Professio [phone] [facility] nal [address] [place] [address] Office [facility] 2019-07-29 2019-07-29 Letter Rubio [facility] 1.2.840.114 [id number] Univers 00:00:00 00:00:00 (Out) Oswaldo Health 350.1.13.10 it y of [place] 4.2.7.2.686 Joe as Professio [phone] [address] Office [facility] 2019-07-28 2019-07-28 Letter Wilda-Seamus [facility] 1.2.840.114 [id number] Univers 00:00:00 00:00:00 (Out) kin, Health 350.1.13.10 it y of [place] 4.2.7.2.686 [place] [phone] ([facility]) 2019-07-25 2019-07-25 Case [facility] 1.2.840.114 [id number] Univers 00:00:00 00:00:[address] [facility] 350.1.13.10 ity of [place] 4.2.7.2.686 Joe as Professio [phone] Ar dical nal [address] [place] [address] [facility] 2019-07-24 2019-07-24 Office Saravanan [facility] 1.2.840.114 [id number] Univers 13:48:45 14:03:45 Visit [facility] 350.1.13.10 it y of Surgical 4.2.7.2.686 Joe as Specialti [phone] Ar dical es 198 [facility] 2019-07-24 2019-07-24 Telephone Tyler [facility] 1.2.626.740 [id number] Univers 00:00:00 00:00:00 [facility] 350.1.13.10 it y of [place] 4.2.7.2.686 Joe as Professio [phone] Ar dical nal [address] [facility] One 2019-07-18 2019-07-18 Outpatient R ELIZABETH [facility] [id number] Univers 08:15:00 08:33:22 KENNETH ity of [facility] 2019-07-18 2019-07-18 Orders Doctor TRANG 1.2.840.114 [id number] Univers 00:00:00 00:00:00 Only Unassigned, NINO 350.1.13.10 ity of [place] [facility] 4.2.7.2.686 Joe as [phone] [address] 2019-07-17 2019-07-17 Refill [facility] 1.2.840.114 [id number] Univers 00:00:00 00:00:00 [facility] 350.1.13.10 it y of [place] 4.2.7.2.686 Joe as Professio [phone] Ar dical nal [address] [facility] One 2019-07-16 2019-07-16 Hospital JASE Johsnon 1.2.840.114 [id number] Univers 12:27:42 23:59:00 Encounter Kenneth HINDS 350.1.13.10 [place].2.[place] [phone] [address] 2019-07-11 2019-07-15 Office [facility] 1.2.881.540 [id number] Univers 08:00:35 12:25:52 Visit Kenneth Barnett 350.1.13.10 it y of Surgical 4.2.7.2.686 Joe as Specialti [phone] Me dical es 198 [facility] 2019-07-14 2019-07-14 Telephone [facility] 1.2.840.114 [id number] Univers 00:00:00 00:00:00 Kenneth Barnett 350.1.13.10 it y of Surgical 4.2.7.2.686 Joe as Specialti [phone] Ar dical es 198 [facility] 2019-07-11 2019-07-11 [facility] 1.2.840.114 [id number] Univers 08:33:00 23:59:00 Encounter Kenneth Barnett 350.1.13.10 ity of Surgical 4.2.7.2.686 Joe as Specialti [phone] Me dical es 809 [facility] 2019-07-09 2019-07-09 Office [facility] 1.2.840.114 [id number] Univers 14:38:43 15:02:17 Visit Favian Barnett 350.1.13.10 it y of [place] 4.2.7.2.686 Joe as Professio [phone] Ar dical nal 044 [place] Office [facility] 2019-02-27 2019-02-27 Telephone [facility] 1.2.840.114 [id number] Univers 00:00:00 00:00:00 Kenneth Barnett [id number] it y of Surgical [id number] Joe as Specialti [phone] Ar dical es 198 [facility] 2019-02-26 2019-02-26 [facility] 1.2.840.114 [id number] Univers 07:40:44 23:59:00 Encounter Kenneth Davis [id number] ity of [place] [id number] [facility] [id number] [facility] [address] 2019-02-26 2019-02-26 Hospital Kenneth Johnson [facility] 1.2.840 .114 [id number] Univers 07:40:34 23:59:00 Encounter Station, [facility] [place] 350.1.13 .10 ity of [place] [id number] [facility] [phone] [facility] [address] 2019-02-26 2019-02-26 Nurse Plastics 1, [facility] 1.2.840.114 [id number] Univers 07:40:26 07:55:26 Visit Kenneth Johnson [id number] ity of [place] [id number] [facility] [id number] [facility] [address] 2019-02-21 2019-02-21 Telephone Elizabeth [facility] 1.2.840.114 [id number] Univers 00:00:00 00:00:00 Kenneth [facility] 350.1.13.10 it y of Surgical 4.2.7.2.686 Joe as Specialti [phone] Ar dical es 198 [facility] 2019-02-20 2019-02-20 Prep For Elizabeth [facility] 1.2.840.114 [id number] Univers 00:00:00 00:00:00 Surgery Kenneth [facility] 350.1.13.10 it y of Surgical 4.2.7.2.686 Joe as Specialti [phone] Ar dical es 198 [facility] 2019-02-20 2019-02-20 Letter Elizabeth [facility] [id number] Univers 00:00:00 00:00:00 (Out) Kenneth [facility] 350.1.13.10 it y of Surgical 4.2.7.2.686 Joe as Specialti [phone] Ar dical es 198 [facility] 2019-02-19 2019-02-19 Erik Fenton [facility] 1.2.840.114 [id number] Univers 00:00:00 00:00:00 [facility] 350.1.13.10 it y of [place] 4.2.7.2.686 Joe as Professio [phone] Ar dical nal 044 [facility] 2019-02-19 2019-02-19 [facility] 1.2.840.114 [id number] Univers 00:00:00 00:00:00 Kenneth [facility] 350.1.13.10 it y of Surgical 4.2.7.2.686 Joe as Specialti [phone] Ar dical es 198 [facility] 2019-02-19 2019-02-19 [facility]phone [facility] [id number] Univers 00:00:00 00:00:00 [facility] 350.1.13.10 i ty of [place] 4.2.7.2.686 Joe as Professio [phone] Ar dical nal 044 [facility] 2019-02-18 2019-02-18 [facility]phone [facility] 1.2.840.114 [id number] Univers 00:00:00 00:00:00 Kenneth [facility] 350.1.13.10 it y of Surgical 4.2.7.2.686 Joe as Specialti [phone] Ar dicjamie es 198 [facility] 2019-02-17 2019-02-17 [facility] 1.2.521.649 [id number] [facility] 00:00:00 00:00:00 Baylee Davis 350.1.13.10 ity [place] [phone] Ar dical nal 059 [facility] 2019-02-14 2019-02-14 [facility] 1.2.840.114 [id number] Univers 08:21:55 23:59:00 Encounter Kenneth [facility] 350.1.13.10 ity of Surgical 4.2.7.2.686 Joe as Specialti [phone] Ar dicjamie es 809 [facility] 2019-01-23 2019-02-14 Office [facility] 1.2.840.114 [id number] Univers 14:04:10 12:58:59 Visit Baylee [place] 350.1.13.10 it[place].2.[place] [phone] Ar kennedy nal 059 [facility] 2019-02-14 2019-02-14 Office Elizabeth [facility] 1.2.106.801 [id number] Univers 08:01:14 08:45:23 Visit Kenneth [facility] 350.1.13.10 it y of Surgical 4.2.7.2.686 Joe as Specialti [phone] Ar kennedy es 198 [facility] 2019-02-14 2019-02-14 Letter Elizabeth [facility] 1.2.534.147 [id number] Univers 00:00:00 00:00:00 (Out) Kenneth [facility] 350.1.13.10 it y of Surgical 4.2.7.2.686 Joe as Specialti [phone] Ar kennedy es 198 [facility] 2019-02-12 2019-02-12 [facility].840.114 [id number] Univers 00:00:00 00:00:00 (Out) [facility] 350.1.13.10 i ty of [place] 4.2.7.2.686 Joe as Professio [phone] Ar dical nal 044 [place] [facility] One 2019-02-12 2019-02-12 [facility]phone [facility] 1.2.107.684 [id number] Univers 00:00:00 00:00:00 [facility] 350.1.13.10 i ty of [place] 4.2.7.2.686 Joe as Professio [phone] Ar dical nal 044 [place] Office [facility] 2019-02-11 2019-02-11 [facility] [id number] Univers 00:00:00 00:00:00 [facility] 350.1.13.10 i ty of [place] 4.2.7.2.686 Joe as Professio [phone] Ar dicri nal 044 [place] Office [facility] One 2019-02-07 2019-02-07 [facility] Kyara Griffith [facility] 1.2.840. 114 [id number] Univers 14:19:36 23:59:00 Encounter Tech, Adc Cardio Vascular [place] 3 50.1.13.10 ity of [place] 4.2.7.2.686 [facility] [phone] [facility] [address] 2019-02-07 2019-02-07 Office Latrice NDARELY 1.2.840.114 [id number] Univers 13:27:28 14:01:15 Visit Kyara [facility] 350.1.13.10 i ty of [place] 4.2.7.2.686 Joe as Professio [phone] [address] Office Building One 2019-02-07 2019-02-07 Telephone Latrice [facility] 1.2.139.355 [id number] Univers 00:00:00 00:00:00 Kyara [facility] 350.1.13.10 i ty of [place] 4.2.7.2.686 Joe as Professio [phone] [address] Office Building One 2019-02-07 2019-02-07 [facility] 1.2.840.114 [id number] Univers 00:00:00 00:00:00 Kyara [facility] 350.1.13.10 i ty of [place] 4.2.7.2.686 Joe as Professio [phone] [address] Office Building One 2019-02-06 2019-02-06 Nurse Plastics 1, Adc Lab [facility] 1.2.840.114 [id number] Univers 13:47:02 14:02:02 Visit Baylee [place] 350.1.13. 10 ity of [place] 4.2.7.2.686 [facility] [phone] [facility] [address] 2019-02-06 2019-02-06 Orders Doctor TRANG 1.2.840.114 [id number] Univers 00:00:00 00:00:00 Only Unassigned, NINO 350.1.13.10 ity of [place] [facility] 4.2.7.2.686 Joe as [phone] [facility] [address] 2019-02-03 2019-02-03 Telephone Hamzah ND 1.2.892.408 [id number] Univers 00:00:00 00:00:00 Sendclyde BillsHLucinda [place] 350.1.13.10 it[place].2.[place] [phone] [place] [id number] [facility] 2019-01-30 2019-01-30 Solar Project Engineer, Adc Cardio Fac [facility] 1. 2.840.114 [id number] Univers 14:35:52 15:25:17 Only 1, Adc Cardio Fac Room [place] 350.1. 13.10 ity of [place], Baylee Boucher Katie 4.2.7.2.686 [place] Professio [phone] [place] 559419 [facility] 2019-01-28 2019-01-28 Orders Doctor TRANG 1.2.840.114 [id number] Univers 00:00:00 00:00:00 Only Unassigned, NINO 350.1.13.10 ity of [place] [facility] 4.2.7.2.686 Joe as [phone] [address] 2019-01-23 2019-01-23 [facility] 1.2.840.114 [id number] Univers 00:00:00 00:00:00 [facility] 350.1.13.10 it y of [place] 4.2.7.2.686 Joe as Professio [phone] [address] Office [facility] One 2019-01-15 2019-01-15 Office Latrice [facility] 1.2.840.114 [id number] Univers 08:04:41 08:35:55 Visit [facility]ara [facility] 350.1.13.10 i ty of [place] 4.2.7.2.686 Joe as Professio [phone] [address] One 2019-01-15 2019-01-15 Letter Latrice [facility] 1.2.840.114 [id number] Univers 00:00:00 00:00:00 (Out) [facility] 350.1.13.10 i ty of [place] 4.2.7.2.686 Joe as Professio [phone] [address] Building One Results Test Description Test Time Test Comments Results Result Comments Source CBC WITH DIFF 2022-08-07 16:36:14 Test Item Value Reference Range Interpretation Comme nts WBC (test code = 6690-2) 7.27 See_Comment [A utomated message] The system which [place] nerated this result transmit divine reference range: 4.30 - 1 1.10 10*3/?L. The reference r rossy was not used to interpr et this result as normal/abnor mal. RBC (test code = 789-8) 5.03 See_Comment [Au tomated message] The system which ge nerated this result transmit divine reference range: 3.93 - 5 .25 10*6/?L. The reference r rossy was not used to interpr et this result as normal/abnor mal. HGB (test code = 718-7) 14.0 g/dL 11.6-15.0 HCT (test code = 4544-3) 42.6 % 35.7-45.2 MCV (test code = 787-2) 84.7 fL 80.6-95.5 MCH (test code = 785-6) 27.8 pg 25.9-32.8 MCHC (test code = 786-4) 32.9 g/dL 31.6-35.1 RDW-SD (test code = 83458-2) 45.1 fL 39.0-49.9 RDW-CV (test code = 788-0) 14.6 % 12.0-15.5 PLT (test code = 777-3) 309 See_Comment [Au tomated message] The system which [place] nerated this result transmit divine reference range: 166 - 35 8 10*3/?L. The reference range was not used to interpret th is result as normal/abnormal . MPV (test code = 58573-5) 9.2 fL 9.5-12.9 L NRBC/100 WBC (test code = 0.0 See_Comment [ Automated message] The 2651227953) system which [place] nerated this result transmit divine reference range: 0.0 - 10 .0 /100 WBCs. The reference r rossy was not used to interpr et this result as normal/abnor mal. NRBC x10^3 (test code = See_Comment [Au tomated message] The 6909391760) system which ge nerated this result transmit divine reference range: 10*3/?L. The reference range was not u sed to interpret this result as normal/abnormal . GRAN MAT (NEUT) % (test code 71.1 % = 770-8) IMM GRAN % (test code = 0.70 % 9680034706) LYMPH % (test code = 736-9) 19.9 % MONO % (test code = 5905-5) 6.2 % EOS % (test code = 713-8) 1.4 % BASO % (test code = 706-2) 0.7 % GRAN MAT x10^3(ANC) (test 5.17 10*3/uL 1.88-7.09 code = 0861961143) IMM GRAN x10^3 (test code = 0.05 10*3/uL 0.00-0.06 9292814131) LYMPH x10^3 (test code = 1.45 10*3/uL 1.32-3.29 731-0) MONO x10^3 (test code = 0.45 10*3/uL 0.33-0.92 742-7) EOS x10^3 (test code = 0.10 10*3/uL 0.03-0.39 711-2) BASO x10^3 (test code = 0.05 10*3/uL 0.01-0.07 704-7) Lab Interpretation (test Abnormal code = 78266-9) [facility] WITH [id number] 16:36:14 Test Item Value Reference Range Interpretation Comments WBC (test code = 7.27 See_Comment [Automated 4937-2) message] The sy stem which generated this result transmitted reference range : 4.30 - 11.10 10*3/?L. The reference range was not used to interpret this result as normal/abnormal . RBC (test code = 5.03 See_Comment [Automated 214-8) message] The sy stem which generated this result transmitted reference range : 3.93 - 5.25 10*6/?L. The reference range was not used to interpret this result as normal/abnormal . HGB (test code = 14.0 g/dL 11.6-15.0 718-7) HCT (test code = 42.6 % 35.7-45.2 4544-3) MCV (test code = 84.7 fL 80.6-95.5 787-2) MCH (test code = 27.8 pg 25.9-32.8 785-6) MCHC (test code = 32.9 g/dL 31.6-35.1 786-4) RDW-SD (test code = 45.1 fL 39.0-49.9 37195-2) RDW-CV (test code = 14.6 % 12.0-15.5 788-0) PLT (test code = 309 See_Comment [Automated 777-3) message] The sy stem which generated this result transmitted reference range : 166 - 358 10*3/ ?L. The reference r rossy was not used to interpret this result as normal/abnormal . MPV (test code = 9.2 fL 9.5-12.9 L 43721-9) NRBC/100 WBC (test 0.0 See_Comment [Automat ed code = 3111896680) message] The system which generated this result transmitted reference range : 0.0 - 10.0 /100 WBCs. The refer ence range was not u sed to interpret th is result as normal/abnormal . NRBC x10^3 (test code See_Comment [Auto mated = 1769854028) message] The s ystem which generated this result transmitted reference range : 10*3/?L. The reference range was not used to interpret this result as normal/abnormal . GRAN MAT (NEUT) % 71.1 % (test code = 770-8) IMM GRAN % (test code 0.70 % = 8748712713) LYMPH % (test code = 19.9 % 736-9) MONO % (test code = 6.2 % 5905-5) EOS % (test code = 1.4 % 713-8) BASO % (test code = 0.7 % 706-2) GRAN MAT x10^3(ANC) 5.17 10*3/uL 1.88-7.09 (test code = 1540539779) IMM GRAN x10^3 (test 0.05 10*3/uL 0.00-0.06 code = 6134321747) LYMPH x10^3 (test code 1.45 10*3/uL 1.32-3.29 = 731-0) MONO x10^3 (test code 0.45 10*3/uL 0.33-0.92 = 742-7) EOS x10^3 (test code = 0.10 10*3/uL 0.03-0.39 711-2) BASO x10^3 (test code 0.05 10*3/uL 0.01-0.07 = 704-7) Lab Interpretation Abnormal (test code = 30637-5) [facility] WITH [id number] 16:36:14 Test Item Value Reference Range Interpretation Comments WBC (test code = 7.27 See_Comment [Automated 9128-2) message] The sy stem which generated this result transmitted reference range : 4.30 - 11.10 10*3/?L. The reference range was not used to interpret this result as normal/abnormal . RBC (test code = 5.03 See_Comment [Automated 976-8) message] The sy stem which generated this result transmitted reference range : 3.93 - 5.25 10*6/?L. The reference range was not used to interpret this result as normal/abnormal . HGB (test code = 14.0 g/dL 11.6-15.0 718-7) HCT (test code = 42.6 % 35.7-45.2 4544-3) MCV (test code = 84.7 fL 80.6-95.5 787-2) MCH (test code = 27.8 pg 25.9-32.8 785-6) MCHC (test code = 32.9 g/dL 31.6-35.1 786-4) RDW-SD (test code = 45.1 fL 39.0-49.9 23805-9) RDW-CV (test code = 14.6 % 12.0-15.5 788-0) PLT (test code = 309 See_Comment [Automated 077-3) message] The sy stem which generated this result transmitted reference range : 166 - 358 10*3/ ?L. The reference r rossy was not used to interpret this result as normal/abnormal . MPV (test code = 9.2 fL 9.5-12.9 L 17265-7) NRBC/100 WBC (test 0.0 See_Comment [Automat ed code = 8047754521) message] The system which generated this result transmitted reference range : 0.0 - 10.0 /100 WBCs. The refer ence range was not u sed to interpret th is result as normal/abnormal . NRBC x10^3 (test code See_Comment [Auto mated = 9948477391) message] The s ystem which generated this result transmitted reference range : 10*3/?L. The reference range was not used to interpret this result as normal/abnormal . GRAN MAT (NEUT) % 71.1 % (test code = 770-8) IMM GRAN % (test code 0.70 % = 9186085963) LYMPH % (test code = 19.9 % 736-9) MONO % (test code = 6.2 % 5905-5) EOS % (test code = 1.4 % 713-8) BASO % (test code = 0.7 % 706-2) GRAN MAT x10^3(ANC) 5.17 10*3/uL 1.88-7.09 (test code = 6306912685) IMM GRAN x10^3 (test 0.05 10*3/uL 0.00-0.06 code = 3722712820) LYMPH x10^3 (test code 1.45 10*3/uL 1.32-3.29 = 731-0) MONO x10^3 (test code 0.45 10*3/uL 0.33-0.92 = 742-7) EOS x10^3 (test code = 0.10 10*3/uL 0.03-0.39 711-2) BASO x10^3 (test code 0.05 10*3/uL 0.01-0.07 = 704-7) Lab Interpretation Abnormal (test code = 43317-6) [facility]
[2022-10-21 10:45] LABS: Hematocrit 39.6 % (36.0-45.0); Lymphocytes % 27.9 % (15.3-44.8); MCV 84.6 fL (80-100); MPV 8.3 fL (7.6-11.3); RBC Red Blood Cell Count 4.68 M/uL (3.86-4.86)
[2022-10-21 10:50] LABS: Protime INR 2.27
[2022-10-21 10:59] LABS: C-Reactive Protein 27.4 mg/L (<3.00); Potassium 3.4 mEq/L (3.5-5.1)
[2022-10-21] MEDS ORDERED: NA CHLORIDE 0.9% 250 ML ONE (11:13)
[2022-10-21] MEDS ORDERED: VANCOMYCIN 1 GM/VIAL ONE (11:13)
[2022-10-21] MEDS ORDERED: FENTANYL CITR 100 MCG/2 ML ONE ×2 (11:13→15:09)
--- NOTE | 2022-10-21 11:17 | EDPHYS ---
Physician Documentation [facility] Name: Therese Gutierrez Age: 61 yrs Sex: Female : 1960 Arrival Date: 10/21/2022 Time: 09:29 Bed 20 Private MD: ED Physician Doug Young HPI: 10/21 10:00 This 61 yrs old Female presents to ER via Ambulatory with complaints of Dog Bite, Hand cp Swelling. 10:00 The patient was bitten on the right middle finger, by a dog, in an unprovoked manner, cp at home, by patient's pet dog. Onset: The symptoms/episode began/occurred 2 day(s) ago. Animal information: known, animal belongs to patient. Secondary to the bite the patient reports bite wound to right middle finger. Associated signs and symptoms: Pertinent positives: erythema at site, swelling at site, Pertinent negatives: fever, motor deficit, numbness distal to wound. Patient reports worse swelling and redness since waking up this morning. Bite occurred while giving pet dog seizure medication this past . Patient reports pricking finger with needle and observing pus drain from finger. Historical: - Allergies: 09:48 PENICILLINS; eh3 09:48 Zocor; eh3 09:48 Bactrim; eh3 - Home Meds: 09:48 Effexor XR 150 mg Oral cp24 1 cap once daily [Active]; montelukast oral [Active]; eh3 Lisinopril Oral [Active]; atorvastatin oral [Active]; Zyrtec Oral [Active]; Antacid oral [Active]; - PMHx: 09:48 Hypertensive disorder; Hypercholesterolemia; Heart murmur; Gastric reflux; eh3 - PSHx: 09:48 Hysterectomy; Ligation of fallopian tube; Knee replacement x2; eh3 - Immunization history:: Adult Immunizations up to date. - Social history:: Smoking status: Patient denies any tobacco usage or history of. Patient/guardian denies using alcohol. ROS: 10:05 Constitutional: Negative for body aches, chills, fever, poor PO intake. cp 10:05 Eyes: Negative for injury, pain, redness, and discharge. cp 10:05 ENT: Negative for drainage from ear(s), ear pain, sore throat, difficulty swallowing, difficulty handling secretions. 10:05 Cardiovascular: Negative for chest pain, edema, palpitations. 10:05 Respiratory: Negative for cough, shortness of breath, wheezing. 10:05 Abdomen/GI: Negative for abdominal pain, nausea, vomiting, and diarrhea. 10:05 MS/extremity: Positive for decreased range of motion, erythema, pain, puncture, swelling, tenderness, of the right middle finger. 10:05 All other systems are negative. Exam: 10:10 Constitutional: The patient appears in no acute distress, alert, awake, cp non-diaphoretic, non-toxic, well developed, well nourished, obese. 10:10 Head/Face: Normocephalic, atraumatic. cp 10:10 Eyes: Periorbital structures: appear normal, Conjunctiva: normal, no exudate, no injection, Sclera: no appreciated abnormality, Lids and lashes: appear normal, bilaterally. 10:10 ENT: External ear(s): are unremarkable, Nose: is normal, Mouth: Lips: moist, Oral mucosa: pink and intact, moist, Posterior pharynx: is normal, airway is patent, no erythema, no exudate. 10:10 Chest/axilla: Inspection: normal. 10:10 Cardiovascular: Rate: normal, Rhythm: regular. 10:10 Respiratory: the patient does not display signs of respiratory distress, Respirations: normal, no use of accessory muscles, no retractions, labored breathing, is not present, Breath sounds: are clear throughout, no decreased breath sounds, no stridor, no wheezing. 10:10 Abdomen/GI: Exam negative for discomfort, distension, guarding, Inspection: abdomen appears normal. 10:10 Musculoskeletal/extremity: Extremities: grossly normal except: noted in the right middle finger: Exam shows circumferential swelling and erythema, tenderness along the flexor tendon, 2 puncture type wounds located in the middle phalanx both dorsal and volar side. No drainage able to be expressed. Digit is held in slight flexion and pain is increased with extension of the digit. 11:32 ECG was reviewed by the Attending Physician. cp Vital Signs: 09:46 BP 117 / 72; Pulse 82; Resp 18; Temp 97.6(IR); Pulse Ox 100% on R/A; Weight 132 kg; eh3 Height 5 ft. 7 in. ; Pain 8/10; 10:59 BP 103 / 76; Pulse 81; Resp 18 S; Pulse Ox 100% on R/A; kc6 11:45 BP 121 / 73; Pulse 70; Resp 16; Pulse Ox 98% on R/A; eh3 12:45 BP 117 / 74; Pulse 70; Resp 16; Pulse Ox 97% on R/A; eh3 13:45 BP 118 / 76; Pulse 72; Resp 16; Pulse Ox 99% on R/A; eh3 09:46 Body Mass Index 45.58 (132.00 kg, 170.18 cm) eh3 09:46 Pain Scale: Adult eh3 MDM: 09:37 Patient medically screened. cp 11:00 Differential diagnosis: cellulitis, abscess, tenosynovitis, fracture, retained foreign cp body. 11:30 Data reviewed: vital signs, nurses notes, lab test result(s), EKG, radiologic studies, cp plain films, I have discussed the patient's presentation/case with the attending Emergency Department Physician; and as a result, I will admit patient. 11:30 Consideration of Admission/Observation Patient was admitted/placed on observation. cp Management of patient was discussed with the following: Hospitalist: DR Gan will admit patient after discussion and with consult by DR Kathleen. Files Supervisor: \T\[phone]. DR Kathleen, hand surgery, will consult and wants patient to be npo. 10/21 09:53 Order name: CBC with Diff; Complete Time: 10:57 cp 10/21 10:58 Interpretation: Reviewed. 10/21 09:53 Order name: BMP; Complete Time: 11:03 10/21 11:03 Interpretation: Normal except: K 3.4; CL 111; GLUC 113; GFR 75. cp 10/21 09:53 Order name: CRP; Complete Time: 11:03 cp 10/21 11:03 Interpretation: Abnormal: C-REACTIVE PROT 27.40. cp 10/21 09:53 Order name: Lactate w/ 2H reflex if indic.; Complete Time: 11:03 cp 10/21 09:53 Order name: Blood Culture Adult (2) cp 10/21 09:53 Order name: PT-INR; Complete Time: 10:58 cp 10/21 10:58 Interpretation: Reviewed. 10/21 12:05 Order name: CBC with Automated Diff EDMS 10/21 12:05 Order name: CBC with Automated Diff EDMS 10/21 12:05 Order name: Comprehensive Metabolic Panel EDTN 10/21 12:05 Order name: Comprehensive Metabolic Panel EDTN 10/21 12:05 Order name: Magnesium EDTN 10/21 12:05 Order name: Magnesium EDTN 10/21 12:05 Order name: Phosphorus EDTN 10/21 12:05 Order name: Phosphorus EDTN 10/21 12:05 Order name: Protime (+INR) EDTN 10/21 12:05 Order name: Protime (+INR) EDTN 10/21 12:06 Order name: Blood Culture EDTN 10/21 09:53 Order name: XRAY Hand RIGHT 3 View; Complete Time: 13:08 cp 10/21 13:08 Interpretation: Report reviewed. cp 10/21 11:09 Order name: XRAY Chest (1 view); Complete Time: 13:08 cp 10/21 13:09 Interpretation: Report review. 10/21 11:09 Order name: EKG; Complete Time: 11:10 cp 10/21 12:05 Order name: CONS Physician Consult EDTN 10/21 12:05 Order name: NPO [facility] 10/21 09:53 Order name: IV; Complete Time: 10:39 cp 10/21 11:05 Order name: NPO; Complete Time: 11:29 cp 10/21 11:09 Order name: EKG - Nurse/Tech; Complete Time: 11:29 cp EC:32 Rate is 74 beats/min. Rhythm is regular. NV interval is normal. QRS interval is normal. cp QT interval is normal. T waves are Inverted in lead aVR. Interpreted by me. Reviewed by me. Administered Medications: 11:12 CANCELLED (Physician Discretion): cefOXitin IVPB 2 grams IVPB once over 30 mins; (mix cp in 100 mL NS) 11:30 Drug: fentaNYL (PF) IVP 25 mcg Route: IVP; Site: right antecubital; eh3 12:30 Follow up: Response: No adverse reaction; Pain is decreased eh3 12:00 Drug: vancoMYCIN IVPB 1 grams Route: IVPB; Infused Over: 2 hrs; Site: right antecubital;eh3 14:33 Follow up: Response: No adverse reaction; IV Status: Completed infusion; IV Intake: eh3 250ml 12:45 Drug: Tetanus-Diphtheria Toxoid IM Adult 0.5 ml {[employer]: [employer] eh3 Exp: 04/28/2023. Lot #: [id number]. } Route: IM; Site: right deltoid; 13:45 Follow up: Response: (VIS) Vaccine information sheet provided today. Questions and/or eh3 concerns addressed. VIS edition date: Jan 14, 2021.; No adverse reaction Disposition Summary: 10/21/22 11:16 Hospitalization Ordered Hospitalization Status: Inpatient Admission cp Provider: Luis Gan cp Location: Telemetry/MedSurg (Inpatient) cp Condition: Stable cp Problem: new cp Symptoms: have improved cp Bed/Room Type: Standard cp Room Assignment: 410(10/21/22 13:27) eb Diagnosis - Other synovitis and tenosynovitis, right hand - right middle finger cp - Bitten by dog, initial encounter cp Forms: - Medication Reconciliation Form cp - SBAR form cp Signatures: Dispatcher [employer] EDMS Dallin Ferguson PA PA cp Botello, Elizabeth eb Hall, Erin, RN RN eh3 Corrections: (The following items were deleted from the chart) 09:52 09:48 PMHx: cardiac murmur; eh3 eh3 09:52 09:48 PMHx: Depression; eh3 eh3 09:52 09:48 PMHx: Anxiety; eh3 eh3 09:52 09:48 PMHx: Hyperlipidemia; eh3 eh3 09:52 09:48 PMHx: hypopotassemia; eh3 eh3 09:52 09:48 PMHx: osteoarthritis; eh3 eh3 09:52 09:48 PMHx: OBSTRUCTIVE SLEEP APNEA; eh3 eh3 09:52 09:48 PMHx: Obesity; eh3 eh3 09:52 09:48 PMHx: atypical chest pain; eh3 eh3 09:52 09:48 PMHx: idiopathic peripheral neuropathy; eh3 eh3 11:12 11:05 cefOXitin IVPB 2 grams IVPB once over 30 mins; (mix in 100 mL NS) ordered. cp cp 13:27 11:16 cp eb
--- NOTE | 2022-10-21 11:17 | ER ---
Nurse's Notes [facility] Name: Therese Gutierrez Age: 61 yrs Sex: Female : 1960 Arrival Date: 10/21/2022 Time: 09:29 Bed 20 Private MD: Diagnosis: Other synovitis and tenosynovitis, right hand-right middle finger;Bitten by dog, initial encounter Presentation: 10/21 09:46 Chief complaint: Patient states: Dog bite to right middle finger happened , two eh3 puncture wounds, her own dog bit her when she was giving him medicine after the dog had a seizure. Coronavirus screen: Vaccine status: Patient reports receiving the 2nd dose of the covid vaccine. Ebola Screen: No symptoms or risks identified at this time. Initial Sepsis Screen: Does the patient meet any 2 criteria? No. Patient's initial sepsis screen is negative. Does the patient have a suspected source of infection? Yes: Skin breakdown/wound. Risk Assessment: Do you want to hurt yourself or someone else? Patient reports no desire to harm self or others. Onset of symptoms was October 19, 2022. 09:46 Method Of Arrival: Ambulatory 3 09:46 Acuity: MICHAELA 2 eh3 Triage Assessment: 09:48 Bite description: bite sustained to right middle finger by a dog, animal information: eh3 vaccination(s) is current. General: Appears in no apparent distress. uncomfortable, Behavior is calm, cooperative, appropriate for age. Pain: Complains of pain in right middle finger Pain radiates to right hand Pain currently is 8 out of 10 on a pain scale. EENT: No signs and/or symptoms were reported regarding the EENT system. Neuro: Level of Consciousness is awake, alert, obeys commands, Oriented to person, place, time, situation. Cardiovascular: Capillary refill < 3 seconds Patient's skin is warm and dry. Respiratory: Airway is patent Respiratory effort is even, unlabored, Respiratory pattern is regular, symmetrical. GI: Abdomen is round non-distended. : No signs and/or symptoms were reported regarding the genitourinary system. Derm: Wound noted right middle finger Wound is 1 anterior and 1 posterior puncture, hot, red, and swollen. Musculoskeletal: Circulation, motion, and sensation intact. Range of motion: limited in DIP of right middle finger and PIP of right middle finger. Historical: - Allergies: 09:48 PENICILLINS; eh3 09:48 Zocor; eh3 09:48 Bactrim; eh3 - Home Meds: :48 Effexor XR 150 mg Oral cp24 1 cap once daily [Active]; montelukast oral [Active]; eh3 Lisinopril Oral [Active]; atorvastatin oral [Active]; Zyrtec Oral [Active]; Antacid oral [Active]; - PMHx: 09:48 Hypertensive disorder; Hypercholesterolemia; Heart murmur; Gastric reflux; eh3 - PSHx: 09:48 Hysterectomy; Ligation of fallopian tube; Knee replacement x2; eh3 - Immunization history:: Adult Immunizations up to date. - Social history:: Smoking status: Patient denies any tobacco usage or history of. Patient/guardian denies using alcohol. Screenin:48 [facility] ED Fall Risk Assessment (Adult) Score/Fall Risk Level 0 - 2 = Low Risk. Abuse eh3 screen: Denies threats or abuse. Denies injuries from another. Nutritional screening: No deficits noted. Tuberculosis screening: No symptoms or risk factors identified. Assessment: 09:48 Reassessment: No changes from previously documented assessment. See triage assessment. eh3 Derm: Skin is intact, is healthy with good turgor, Skin is pink, warm \T\ dry. Wound noted right middle finger. 10:48 Reassessment: Patient appears in no apparent distress at this time. No changes from kc6 previously documented assessment. Patient and/or family updated on plan of care and expected duration. Pain level reassessed. Patient is alert, oriented x 3, equal unlabored respirations, skin warm/dry/pink. 11:45 Reassessment: Patient appears in no apparent distress at this time. Patient and/or eh3 family updated on plan of care and expected duration. Pain level reassessed. Patient is alert, oriented x 3, equal unlabored respirations, skin warm/dry/pink. 12:45 Reassessment: Patient appears in no apparent distress at this time. Patient and/or eh3 family updated on plan of care and expected duration. Pain level reassessed. Patient is alert, oriented x 3, equal unlabored respirations, skin warm/dry/pink. 13:45 Reassessment: Patient appears in no apparent distress at this time. Patient and/or 3 family updated on plan of care and expected duration. Pain level reassessed. Patient is alert, oriented x 3, equal unlabored respirations, skin warm/dry/pink. Vital Signs: 09:46 BP 117 / 72; Pulse 82; Resp 18; Temp 97.6(IR); Pulse Ox 100% on R/A; Weight 132 kg; eh3 Height 5 ft. 7 in. ; Pain 8/10; 10:59 BP 103 / 76; Pulse 81; Resp 18 S; Pulse Ox 100% on R/A; kc6 11:45 BP 121 / 73; Pulse 70; Resp 16; Pulse Ox 98% on R/A; eh3 12:45 BP 117 / 74; Pulse 70; Resp 16; Pulse Ox 97% on R/A; eh3 13:45 BP 118 / 76; Pulse 72; Resp 16; Pulse Ox 99% on R/A; eh3 09:46 Body Mass Index 45.58 (132.00 kg, 170.18 cm) 3 09:46 Pain Scale: Adult [facility] ED Course: 09:31 Patient arrived in ED. ts1 09:31 Dallin Ferguson PA is PHCP. cp 09:31 Doug Young MD is Attending Physician. cp 09:33 Neyda Tierney, KEMAR is Primary Nurse. 3 09:48 Triage completed. eh3 09:48 Arm band placed on. eh3 09:48 Patient has correct armband on for positive identification. Bed in low position. Call [facility] light in reach. Side rails up X2. Pulse ox on. NIBP on. Door closed. Noise minimized. Warm blanket given. 10:39 PT-INR Sent. bc6 10:39 Blood Culture Adult (2) Sent. bc6 10:39 Lactate w/ 2H reflex if indic. Sent. bc6 10:39 BMP Sent. bc6 10:39 CRP Sent. bc6 10:39 CBC with Diff Sent. bc6 10:39 Inserted saline lock: 20 gauge in right antecubital area, using aseptic technique. bc6 11:13 Luis Gan MD is Hospitalizing Provider. cp 11:29 XRAY Hand RIGHT 3 View In Process Unspecified. EDMS 11:29 XRAY Chest (1 view) In Process Unspecified. EDMS 14:30 No provider procedures requiring assistance completed. Patient admitted, IV remains in eh3 place. Administered Medications: 11:12 CANCELLED (Physician Discretion): cefOXitin IVPB 2 grams IVPB once over 30 mins; (mix cp in 100 mL NS) 11:30 Drug: fentaNYL (PF) IVP 25 mcg Route: IVP; Site: right antecubital; eh3 12:30 Follow up: Response: No adverse reaction; Pain is decreased eh3 12:00 Drug: vancoMYCIN IVPB 1 grams Route: IVPB; Infused Over: 2 hrs; Site: right antecubital;eh3 14:33 Follow up: Response: No adverse reaction; IV Status: Completed infusion; IV Intake: eh3 250ml 12:45 Drug: Tetanus-Diphtheria Toxoid IM Adult 0.5 ml {[employer]: [employer] ([employer]). [facility] Exp: 04/28/2023. Lot #: [id number]. } Route: IM; Site: right deltoid; 13:45 Follow up: Response: (VIS) Vaccine information sheet provided today. Questions and/or eh3 concerns addressed. VIS edition date: Jan 14, 2021.; No adverse reaction Medication: 12:40 Vaccine Information Statement (VIS) provided today. Questions and/or concerns eh3 addressed. VIS edition date: January 14, 2021. Intake: 14:33 IV: 250ml; Total: 250ml. 3 Outcome: 11:16 Decision to Hospitalize by Provider. cp 14:30 Admitted to OR accompanied by nurse, via wheelchair. 3 14:30 Condition: stable 14:30 Instructed on the need for admit. 14:32 Patient left the ED. 3 Signatures: Dispatcher [employer] EDMS Dallin Ferguson PA PA cp Hall, Erin, RN RN 3 Domenica Bose RN RN kc6 May Cline Tanya, PAS PAS ts1 Corrections: (The following items were deleted from the chart) 09:52 09:48 PMHx: cardiac murmur; 3 3 :52 09:48 PMHx: Depression; 3 3 :52 09:48 PMHx: Anxiety; 3 3 52 09:48 PMHx: Hyperlipidemia; 3 3 :52 09:48 PMHx: hypopotassemia; eh3 eh3 09:52 09:48 PMHx: osteoarthritis; [address] [facility] 09:48 PMHx: OBSTRUCTIVE SLEEP APNEA; [place] [id number] 09:48 PMHx: Obesity; [place] [id number] 09:48 PMHx: atypical chest pain; [place] [id number] 09:48 PMHx: idiopathic peripheral neuropathy; [place] [id number]
--- NOTE | 2022-10-21 11:42 | RAD REPORT ---
EXAM DESCRIPTION: RAD - Hand Right 3 View - 10/21/2022 11:27 am CLINICAL HISTORY: ANIMAL BITE COMPARISON: No comparisons FINDINGS/IMPRESSION: No acute fracture. No malalignment. No significant focal degenerative changes. Benign enchondroma in the fourth middle phalanx. No radiopaque foreign bodies.
--- NOTE | 2022-10-21 11:44 | RAD REPORT ---
EXAM DESCRIPTION: RAD - Chest Single View - 10/21/2022 11:27 am CLINICAL HISTORY: pre-op COMPARISON: CHEST PA AND LAT 2 VIEW dated 07/17/2012 FINDINGS: Lines: None. Lungs: No evidence of edema or pneumonia. Pleural: No significant pleural effusions or pneumothorax. Cardiac: The heart size is within normal limits. Mediastinum: Within normal limits. Bones: No acute fractures. Other: None IMPRESSION: No acute cardiopulmonary disease.
--- NOTE | 2022-10-21 12:11 | P.HP ---
Certification for Inpatient Patient admitted to: Inpatient With expected LOS: >2 Midnights Patient will require the following post-hospital care: None Practitioner: I am a practitioner with admitting privileges, knowledge of patient current condition, hospital course, and medical plan of care. Services: Services provided to patient in accordance with Admission requirements found in Title 42 Section 412.3 of the Code of Federal Regulations Patient History Date of Service: 10/21/22 Reason for admission: Hand Cellulitis History of Present Illness: Ms. Therese Gutierrez is a pleasant 61 year old female who has a past medical history of prior deep venous thrombosis on rivaroxaban, hypertension, dyslipidemia, and seasonal allergies who presents to the [facility] Emergency Department for an infected dog bite. She reports that, on 10/19/2022 while trying to give her dog (Boxer) his seizure medication, the dog bit down and punctured her right third finger. Since the incident, the bite has become more edematous and has began draining purulent material. She states that the pain is throbbing and non-radiating. She grades the pain a 4/10 in severity. She has tried taking 4 pills of an old cefdinir prescription, without improvement of symptoms. On review of systems, she denies any fevers, chills, headaches, dizziness, syncope, weakness, chest pain, palpitations, shortness of breath, wheezing, cough, abdominal pain, nausea/vomiting, diarrhea, myalgia, or any other symptoms. She presented to the Emergency Department for further evaluation. Upon presentation, her vital signs were stable. Her laboratory studies were notable for a potassium of 3.4 and a CRP of 27.4. Blood cultures x 2 were obtained. Her chest x-ray revealed, "no acute cardiopulmonary disease." Her right hand x-ray revealed, "no acute fracture. No malalignment. No significant focal degenerative changes. Benign enchondroma in the fourth middle phalanx. No radiopaque foreign bodies." In the Emergency Department, she was given cefoxitin. She was admitted to the General Internal Medicine service for further evaluation. Allergies Penicillins Allergy (Intermediate, Verified 10/03/12 12:59) Hives biotin Allergy (Verified 10/21/22 12:24) simvastatin [From Zocor] Allergy (Unverified 02/02/16 10:17) Unknown Sulfa (Sulfonamide Antibiotics) Allergy (Verified 10/21/22 12:24) Home medications list reviewed: Yes Home Medications: Atorvastatin Calcium [Lipitor] 10 mg PO BEDTIME 10/21/22 Cetirizine HCl [Zyrtec] 10 mg PO DAILY 10/21/22 Montelukast [Singulair] 10 mg PO DAILY 10/21/22 Rivaroxaban [Xarelto] 10 mg PO DAILY 10/21/22 Venlafaxine HCl [Venlafaxine HCl ER] 150 mg PO DAILY 10/21/22 lisinopriL [Lisinopril] 5 mg PO DAILY 10/21/22 - Past Medical/Surgical History -: DVT -: Hypertension -: Dyslipidemia -: Depression -: Seasonal Allergies - Family History Family History: Reviewed- Non-Contributory - Social History Smoking Status: Never smoker Alcohol use: No CD- Drugs: No Review of Systems General: Unremarkable Eyes: Unremarkable ENT: Unremarkable Respiratory: Unremarkable Cardiovascular: Unremarkable Gastrointestinal: Unremarkable Genitourinary: Unremarkable Musculoskeletal: Hand Pain (right middle finger) Integumentary: Rash (right middle finger) Neurological: Unremarkable Lymphatics: Unremarkable Physical Examination - Vital Signs Temperature: 97.6 F Blood Pressure: 103/76 Pulse: 81 Respirations: 18 Pulse Ox (%): 100 - Physical Exam General: Alert, In no apparent distress, Oriented x3 HEENT: Atraumatic, Mucous membr. moist/pink, Sclerae nonicteric Neck: JVD not distended Respiratory: Clear to auscultation bilaterally, Normal air movement Cardiovascular: No edema, Regular rate/rhythm, Normal S1 S2, No gallops, No rubs, No murmurs Gastrointestinal: Normal bowel sounds, Soft and benign, Non-distended, No tenderness, No rebound, No guarding Musculoskeletal: No clubbing, Swelling (right middle finger) Integumentary: Rash(es) (swelling/erythema in right mid-third finger, with purulent drainage) Neurological: Normal speech, Normal affect - Studies Laboratory Data (last 24 hrs) 10/21/22 10:35: PT 25.0 H, INR 2.27 10/21/22 10:35: Sodium 139, Potassium 3.4 L, BUN 8, Creatinine 0.88, Glucose 113 H 10/21/22 10:35: WBC 7.10, Hgb 12.9, Hct 39.6, Plt Count 279 Assessment and Plan - Plan # Right Third Digit Puncture Wound with Purulent Cellulitis secondary to Dog Bite - Does not meet sepsis criteria - S/P Tdap in the ED - Hand Surgery consulted and spoke with Dr. Kathleen - recommendations appreciated - Plans to take her to the operating room this afternoon - I have informed him that her last rivaroxaban dose was this morning ~04:00 AM - Infectious Diseases consulted and spoke with Dr. Ford - recommendations ap preciated - Recommended starting ciprofloxacin + clindamycin - PRN pain control - NPO # History of Deep Venous Thrombosis - Hold home rivaroxaban pending Surgery recs - SCDs # Hypertension - BP 103/76, hold home lisinopril for now # Dyslipidemia - Continue home atorvastatin # Seasonal Allergies - Continue home cetirizine, montelukast # Depression - Continue home venlafaxine Luis Gan M.D. - Advance Directives Does patient have a Living Will: No Does patient have a Durable POA for Healthcare: No
[2022-10-21] MEDS ORDERED: ACETAMINOPHEN 325 MG TABLET PO PRN (12:52)
[2022-10-21] MEDS ORDERED: MORPHINE 2 MG/ML SYR IV PRN (12:52)
[2022-10-21] MEDS: CLINDAMYCIN 600MG/D5W 50 ML IV SCH ×3 (13:00→23:54)
[2022-10-21] MEDS: CIPROFLOXACIN 400mg IV 400 MG/200 ML BAG IV SCH ×3 (13:00→20:30)
[2022-10-21 13:41] VITALS: BMI 45.6
[2022-10-21] MEDS ORDERED: CLINDAMYCIN 600MG/D5W 50 ML IV ONE (13:56)
[2022-10-21] MEDS ORDERED: CIPROFLOXACIN 400mg IV 400 MG/200 ML BAG IV ONE (13:57)
[2022-10-21] MEDS ORDERED: Ringers Lactate 1,000 ML IV ONE (14:37)
[2022-10-21] MEDS ORDERED: SUCCINYLCHOLINE 20 MG/ML (10 ML) IV ONE (15:06)
[2022-10-21] MEDS ORDERED: MIDAZOLAM HCL 2 MG/2 ML INJ ONE (15:09)
[2022-10-21] MEDS ORDERED: propofoL 200 MG/20 ML VIAL IV ONE (15:09)
[2022-10-21] MEDS ORDERED: dexAMETHasone 10 MG/ML VIAL ONE (15:44)
[2022-10-21] MEDS ORDERED: KETOROLAC 30 MG/ML INJ ONE (15:44)
[2022-10-21] MEDS ORDERED: SILVER SULFADIAZINE 1% 25 GM TOP ONE (15:44)
[2022-10-21] MEDS: FENTANYL CITR 100 MCG/2 ML ONE ×5 (16:06→16:18)
--- NOTE | 2022-10-21 16:27 | OP ---
Surgeon: Yobany Kathleen MD Preoperative Diagnosis: Infection of the right middle finger. Postoperative Diagnosis: Infection of the right middle finger. Procedure Performed: Debridement of skin, subcutaneous tissue, debridement of flexor sheath. Anesthesia: General. Description Of Procedure: After satisfactory induction of general anesthesia, right hand prepped wit h Betadine scrub, Betadine paint, dry sterile drapes applied in the usual manner. Elliptical incisio n was made over dorsum of wound and extended proximally and distally. The laceration was to the radi al side of the extensor mechanism extending around towards the volar surface. There was no pus encou ntered. However, cultures were taken. Hand was turned over. The volar surface had laceration at th e DIP flexion crease and there was pus coming, so wound cultures were taken. The wound was opened pr oximally and distally. Dissection proceeded down the A5 ady area which was opened then. There wa s pus present down to the tendon. Proximal exploration revealed no pus extending proximally. Both w ounds were then jet lavaged and irrigated with 3 L of Betadine solution. Tourniquet released. Elect rocautery used for hemostasis. Wounds were packed with 0.25 inch Nu Gauze soaked in Silvadene cream, 2 inch Td and Kerlix. The patient tolerated procedure well and returned to Recovery. LITO/ELISE Voice ID: [id number] Report ID: [id number]
[2022-10-21] MEDS: MORPHINE 4 MG/ML SYR ONE ×2 (16:31→16:36)
--- NOTE | 2022-10-21 16:33 | HP ---
Date of Admission: 10/21/2022 History Of Present Illness: 61-year-old white female, right-hand dominant, who was bitten by her box er dog of right middle finger 2 days ago at approximately 4 p.m. time, presented to the ER. She has a history of a heart murmur. EKG is normal. She has had hysterectomy and tubal ligation. She is on lisinopril. She is allergic to penicillin. Does smoke. Does not drink. Physical Examination: Vital Signs: 5 feet 7 inches, 290 pounds. Extremities: On examination, she has puncture wounds to the dorsal volar surface of the right middle finger over the distal phalanx and middle phalanx area. Assessment: Dog bite. Plan: Debridement. OTIS Voice ID: [id number]
[2022-10-21] MEDS: CODEINE 30MG/APAP 300MG TAB PO PRN (17:38)
[2022-10-21] MEDS ORDERED: CLINDAMYCIN 600MG/D5W 100 ML IV ONE (18:12)
[2022-10-21] MEDS ORDERED: DOXYCYCLINE 100 MG in NA CHLORIDE 0.9% 100 ML IVPB SCH (21:00)
[2022-10-22] MEDS ORDERED: CLINDAMYCIN 600MG/D5W 50 ML IV ONE (04:33)
[2022-10-22 04:48] LABS: Absolute Lymphocytes (CBC) 0.9 K/uL (0.7-4.9); Hematocrit 38.7 % (36.0-45.0); Lymphocytes % 14.5 % (15.3-44.8); MPV 8.6 fL (7.6-11.3); RBC Red Blood Cell Count 4.56 M/uL (3.86-4.86)
[2022-10-22 04:56] LABS: Protime INR 1.38
[2022-10-22 05:11] LABS: Albumin 3.3 g/dL (3.4-5.0); Bilirubin Total 0.4 mg/dL (0.2-1.0); Magnesium 2.5 mg/dL (1.6-2.4); Phosphorus 3.3 mg/dL (2.5-4.9); Potassium 4.2 mEq/L (3.5-5.1); Protein, Total 7.1 g/dL (6.4-8.2)
[2022-10-22] MEDS: CLINDAMYCIN 600MG/D5W 50 ML IV SCH ×3 (06:16→17:04)
[2022-10-22] MEDS: CIPROFLOXACIN 400mg IV 400 MG/200 ML BAG IV SCH ×2 (07:51→21:01)
[2022-10-22] MEDS ORDERED: CEFTRIAXONE 1,000 MG in NA CHLORIDE 0.9% 50 ML IVPB SCH (09:00)
[2022-10-22] MEDS: CODEINE 30MG/APAP 300MG TAB PO PRN (09:02)
--- NOTE | 2022-10-22 14:44 | EKG ---
Test Date: 2022-10-21 Test Time: 11:23:37 Hair Sample Matcher: MARTHA MEASUREMENT RESULTS: Intervals: Rate: 74 TN: 164 QRSD: 82 QT: 400 QTc: 444 [place]: P: 31 TN: 164 QRS: -24 T: 75 INTERPRETIVE STATEMENTS: Normal sinus rhythm Normal ECG Compared to ECG 05/17/2001 12:24:00 No significant changes Electronically Signed On 10-22-22 14:43:13 CDT by Segundo Tuttle
--- NOTE | 2022-10-22 15:26 | P.PN ---
Subjective Date of Service: 10/22/22 Chief Complaint: Hand Cellulitis POD # 1 from debridement of skin, subcutaneous tissue, debridement of flexor sheath. She tolerated the procedure well and stated that her pain is well- controlled. She states that Hand Surgery team is planning to take her back to the operating room tomorrow. Review of Systems 10-point ROS is otherwise unremarkable Musculoskeletal: Hand Pain (right middle finger) Physical Examination - Vital Signs Temperature: 97.3 F Blood Pressure: 102/60 Pulse: 75 Respirations: 18 Pulse Ox (%): 97 Assessment And Plan - Plan - Physical Exam General: Alert, In no apparent distress, Oriented x3 HEENT: Atraumatic, Mucous membr. moist/pink, Sclerae nonicteric Neck: JVD not distended Respiratory: Clear to auscultation bilaterally, Normal air movement Cardiovascular: No edema, Regular rate/rhythm, No murmurs Gastrointestinal: Normal bowel sounds, Soft, Non-distended, No tenderness Integumentary: Right hand covered in clean surgical dressing Neurological: Normal speech, Normal affect # Right Third Digit Puncture Wound with Purulent Cellulitis secondary to Dog Bite - Does not meet sepsis criteria - S/P Tdap in the ED - Hand Surgery consulted - recommendations appreciated - S/P debridement of skin, subcutaneous tissue, debridement of flexor sheath on 10/21 - Per RN, plan for repeat procedure on 10/23 - Infectious Diseases consulted and spoke with Dr. Ford - recommendations appreciated - Recommended starting ciprofloxacin + clindamycin - PRN pain control - NPO past midnight # History of Deep Venous Thrombosis - Hold home rivaroxaban pending Surgery recs - SCDs # Hypertension - Blood pressure has been soft, hold home lisinopril for now # Dyslipidemia - Continue home atorvastatin # Seasonal Allergies - Continue home cetirizine, montelukast # Depression - Continue home venlafaxine Luis Gan M.D.
[2022-10-22] MEDS ORDERED: HOME MED 1 EA UNK (Cetirizine Hcl [Zyrtec] 10 MG Capsule) PO SCH (16:00)
[2022-10-22] MEDS ORDERED: HOME MED 1 EA UNK (Venlafaxine Hcl [Venlafaxine Hcl Er] 150 MG Tab.Er.24) PO SCH (16:00)
[2022-10-22] MEDS: VENLAFAXINE HCL XR 75 MG CAP PO SCH (16:05)
[2022-10-22] MEDS: CETIRIZINE HCL 5 MG TABLET PO SCH (16:05)
[2022-10-22] MEDS: MONTELUKAST 10 MG TAB PO SCH (16:05)
[2022-10-22] MEDS ORDERED: ATORVASTATIN 10 MG TAB PO SCH (21:00)
[2022-10-23] MEDS: CODEINE 30MG/APAP 300MG TAB PO PRN (00:02)
[2022-10-23] MEDS: CLINDAMYCIN 600MG/D5W 50 ML IV SCH ×3 (00:02→12:06)
[2022-10-23 06:40] LABS: Absolute Lymphocytes (CBC) 2.7 K/uL (0.7-4.9); Hematocrit 37.7 % (36.0-45.0); Lymphocytes % 35.5 % (15.3-44.8); MCV 85.2 fL (80-100); MPV 8.7 fL (7.6-11.3); RBC Red Blood Cell Count 4.42 M/uL (3.86-4.86)
[2022-10-23 06:42] LABS: Potassium 3.7 mEq/L (3.5-5.1)
[2022-10-23] MEDS: CIPROFLOXACIN 400mg IV 400 MG/200 ML BAG IV SCH (07:44)
[2022-10-23] MEDS ORDERED: VENLAFAXINE HCL XR 75 MG CAP PO SCH (09:00)
[2022-10-23] MEDS ORDERED: PANTOPRAZOLE 40MG TABLET PO SCH (09:00)
--- NOTE | 2022-10-23 09:15 | P.CNS ---
Date of Consult: 10/23/22 Reason for Consult: Cellulitis, dog bite Chief Complaint: Hand Cellulitis History of Present Illness: Patient is a 61 yo female with a medical history of hypertension, dyslipidemia and prior DVT who presented to the ED for an infected dog bite to her right mi ddle finger. She reports she was attempting to give medication to her dog and was accidentally bit. Reports her dog is up to date on vaccinations. s/p debridement of right middle finger 10/21. ID consulted for dog bite to right third finger. Allergies Penicillins Allergy (Intermediate, Verified 10/21/22 17:17) Hives biotin Allergy (Verified 10/21/22 17:17) Hives simvastatin [From Zocor] Allergy (Verified 10/21/22 17:17) Unknown Sulfa (Sulfonamide Antibiotics) Allergy (Verified 10/21/22 17:17) Hives Home medications list reviewed: Yes Home Medications: Atorvastatin Calcium [Lipitor*] 10 mg PO BEDTIME 10/21/22 Cetirizine HCl [Zyrtec] 10 mg PO DAILY 10/21/22 Montelukast [Singulair*] 10 mg PO DAILY 10/21/22 Venlafaxine HCl [Venlafaxine HCl ER] 150 mg PO DAILY 10/21/22 Pantoprazole [Protonix Tab*] 1 tab PO DAILY 10/22/22 Ciprofloxacin HCl 500 mg PO BID 10 Days #20 tab 10/23/22 Codeine/APAP [Tylenol #3*] 1 tab PO Q6H PRN 3 Days #12 tab 10/23/22 Rivaroxaban [Xarelto*] 10 mg PO DAILY #30 10/23/22 clindamycin HCL [Clindamycin HCl] 150 mg PO Q8H 10 Days #30 tab 10/23/22 - Past Medical/Surgical History -: dvt -: htn -: hld -: depression -: heart murmur -: GERD -: [place] knee -: hysterectomy - Social History Smoking Status: Never smoker Alcohol use: No CD- Drugs: No Place of Residence: Home Review of Systems 10-point ROS is otherwise unremarkable Musculoskeletal: Hand Pain Integumentary: Other (dog bite right third finger, dressing clean dry and intact s/p debridement and closure 10/23) Physical Examination Temp Pulse Resp BP Pulse Ox 97.8 F 88 16 113/61 98 10/23/22 04:00 10/23/22 04:00 10/23/22 04:00 10/23/22 04:00 10/23/22 04:00 General: Alert, In no apparent distress, Oriented x3 HEENT: Atraumatic, Normocephalic Neck: Supple, 2+ carotid pulse no bruit Respiratory: Clear to auscultation bilaterally, Normal air movement Cardiovascular: No edema, Normal pulses Gastrointestinal: Normal bowel sounds, Soft and benign, Non-distended Musculoskeletal: No clubbing, No swelling Integumentary: No rashes, No breakdown, Tenderness/swelling (right third finger, dressing clean dry and intact) Neurological: Normal speech, Normal tone, Normal affect Laboratory Data - Reviewed Microbiology Data - Reviewed Imagings Data: - Reviewed Conclusions/Impression: Problem List Cellulitis, Right third finger Hypertension Dyslipidemia Hx DVT Cellulitis of Right third finger, Dog Bite - s/p debridement 10/21; debridement and culture 10/23 - On Ciprofloxacin and Clindamycin (10/21) - Wound culture pending Recommendations - Continue Ciprofloxacin and Clindamycin for 7-10 days (started 10/21) - Wound culture pending - Monitor for signs of worsening infection - Continue wound care per surgery team ID will follow up with the patient as needed Case discussed with Didier Humphrey. Thank you Dr. Gan for consult.
[2022-10-23] MEDS ORDERED: Ringers Lactate 1,000 ML IV ONE (09:49)
[2022-10-23] MEDS ORDERED: FENTANYL CITR 100 MCG/2 ML ONE (10:09)
[2022-10-23] MEDS ORDERED: MIDAZOLAM HCL 2 MG/2 ML INJ ONE (10:10)
[2022-10-23] MEDS ORDERED: propofoL 200 MG/20 ML VIAL IV ONE ×2 (10:10→10:29)
[2022-10-23] MEDS ORDERED: LIDOCAINE 2% MPF 5 ML VIAL ONE (10:10)
[2022-10-23] MEDS ORDERED: ONDANSETRON 4 MG/2 ML VIAL ONE (10:10)
[2022-10-23] MEDS ORDERED: dexAMETHasone 4 MG/ML VIAL ONE (10:40)
[2022-10-23] MEDS ORDERED: KETOROLAC 30 MG/ML INJ ONE (11:02)
[2022-10-23] MEDS: HYDROMORPHONE HCL 1 MG/ML INJ ONE ×4 (11:10→11:27)
[2022-10-23 11:29] VITALS: O2SAT 96
[2022-10-23] MEDS: MONTELUKAST 10 MG TAB PO SCH (12:06)
[2022-10-23] MEDS: CETIRIZINE HCL 5 MG TABLET PO SCH (12:07)
[2022-10-23] MEDS: VENLAFAXINE HCL XR 75 MG CAP PO SCH (12:07)
[2022-10-23 13:18] VITALS: BP 117/71; TEMP 97.5
--- NOTE | 2022-10-23 13:48 | P.DS ---
Admission Date: 10/21/22 Discharge Date: 10/23/22 Disposition: ROUTINE DISCHARGE Discharge Condition: GOOD Reason for Admission: Hand Cellulitis Consultations: 1. Hand Surgery 2. Infectious Diseases Procedures: - 10/21/2022 - Debridement of Skin, Subcutaneous Tissue, Debridement of Flexor Sheath - 10/23/2022 - Debridement and Closure of Right Hand 3rd Finger Hospital Course: DIAGNOSES: # Right Third Digit Puncture Wound with Purulent Cellulitis secondary to Dog Bite # History of Deep Venous Thrombosis # Hypertension # Dyslipidemia # Seasonal Allergies # Depression HOSPITAL COURSE: Ms. Therese Gutierrez is a pleasant 61 year old female who has a past medical history of prior deep venous thrombosis on rivaroxaban, hypertension, dyslipidemia, and seasonal allergies who was admitted to the [facility] on 10/21/2022 for right hand dog bite/wound. She was admitted to the Medicine service. Upon further evaluation, her chest x- ray revealed, "no acute cardiopulmonary disease." Her right hand x-ray revealed, "no acute fracture. No malalignment. No significant focal degenerative changes. Benign enchondroma in the fourth middle phalanx. No radiopaque foreign bodies." Hand Surgery was consulted and she was evaluated by Dr. Kathleen. On 10/21/2022, she underwent debridement of skin, subcutaneous tissue, and debridement of flexor sheath. On 10/23/2022, she underwent debridement and closure of right hand 3rd finger. She tolerated the procedure well and her pain is well controlled. Dr. Kathleen has cleared her for discharge with outpatient follow-up. In regards to her infection, Infectious Diseases was consulted. She was evaluated by Dr. Ford. He has cleared her for discharge with a 10-day course of ciprofloxacin and clindamycin. On 10/23/2022, she was seen on rounds and deemed medically stable for discharge. She was discharged with instructions to schedule follow-up appointments with her PCP (HILDA Melton) and with Hand Surgery (Dr. Kathleen). She was provided prescriptions for clindamycin, ciprofloxacin, and Tylenol #3. She was given the opportunity to ask questions and reported no further questions. Furthermore, all questions were answered to the best of my ability. Prior to the controlled substance prescription, a PDMP review was conducted. Over the last 2 years, she has received 0 prescriptions from 0 providers to 0 pharmacies. Her opioid overdose risk score is 0. A copy of this discharge summary will be sent to the above providers to facilitate continuity of care. Today, I personally spent 25 minutes on her case, of which greater than 50% of the time was spent in patient education, counseling, and coordination of care as described above. - Physical Exam General: Alert, In no apparent distress, Oriented x3 HEENT: Atraumatic, Mucous membr. moist/pink, Sclerae nonicteric Neck: JVD not distended Respiratory: Clear to auscultation bilaterally, Normal air movement Cardiovascular: No edema, Regular rate/rhythm, No murmurs Gastrointestinal: Normal bowel sounds, Soft, Non-distended, No tenderness Integumentary: Right hand covered in clean surgical dressing Neurological: Normal speech, Normal affect Vital Signs/Physical Exam: Temp Pulse Resp BP Pulse Ox 97.5 F 79 15 117/71 95 10/23/22 12:00 10/23/22 12:00 10/23/22 12:00 10/23/22 12:00 10/23/22 12:00 Laboratory Data at Discharge: WBC 7.60 thou/uL (4.3-10.9) 10/23/22 05:44 Hgb 12.3 g/dL (12.0-15.0) 10/23/22 05:44 Hct 37.7 % (36.0-45.0) 10/23/22 05:44 Plt Count 264 thou/uL (152-406) 10/23/22 05:44 PT 15.2 SECONDS (9.5-12.5) H 10/22/22 04:16 INR 1.38 10/22/22 04:16 Sodium 142 mEq/L (136-145) 10/23/22 05:44 Potassium 3.7 mEq/L (3.5-5.1) 10/23/22 05:44 BUN 16 mg/dL (7-18) 10/23/22 05:44 Creatinine 0.78 mg/dL (0.55-1.02) 10/23/22 05:44 Glucose 95 mg/dL (74-106) 10/23/22 05:44 Phosphorus 3.3 mg/dL (2.5-4.9) 10/22/22 04:16 Magnesium 2.5 mg/dL (1.6-2.4) H 10/22/22 04:16 Total Bilirubin 0.4 mg/dL (0.2-1.0) 10/22/22 04:16 AST 10 U/L (15-37) L 10/22/22 04:16 ALT 19 U/L (13-56) 10/22/22 04:16 Alkaline Phosphatase 88 U/L (45-117) 10/22/22 04:16 Home Medications: Atorvastatin Calcium [Lipitor*] 10 mg PO BEDTIME 10/21/22 Cetirizine HCl [Zyrtec] 10 mg PO DAILY 10/21/22 Montelukast [Singulair*] 10 mg PO DAILY 10/21/22 Venlafaxine HCl [Venlafaxine HCl ER] 150 mg PO DAILY 10/21/22 Pantoprazole [Protonix Tab*] 1 tab PO DAILY 10/22/22 Ciprofloxacin HCl 500 mg PO BID 10 Days #20 tab 10/23/22 Codeine/APAP [Tylenol #3*] 1 tab PO Q6H PRN 3 Days #12 tab 10/23/22 Rivaroxaban [Xarelto*] 10 mg PO DAILY #30 10/23/22 clindamycin HCL [Clindamycin HCl] 150 mg PO Q8H 10 Days #30 tab 10/23/22 New Medications: Ciprofloxacin HCl 500 mg PO BID 10 Days #20 tab clindamycin HCL [Clindamycin HCl] 150 mg PO Q8H 10 Days #30 tab Codeine/APAP [Tylenol #3*] 1 tab PO Q6H PRN 3 Days #12 tab PRN Reason: Pain Scale 5-7 (Moderate) Rivaroxaban [Xarelto*] 10 mg PO DAILY #30 Physician Discharge Instructions: 1. Please keep your scheduled appointment with your PCP (HILDA Melton) in 10/26/2022 2. Please keep your scheduled appointment with Hand Surgery (Dr. Kathleen) on 10/30/2022 @ 09:00 AM Diet: Regular Activity: Ad mela Followup: Yobany Kathleen MD [ACTIVE - CAN ADMIT] - 10/30/22 9:00 am (Follow up in the [place] [facility] [address], [address] [place], [place]) Veronica Melton NP [OUTSIDE PHYSICIAN] - 05/18/23 Time spent managing pt's care (in minutes): 25
--- NOTE | 2022-10-23 22:02 | OP ---
Surgeon: Yobany Kathleen MD Preoperative Diagnosis: Open wound of the right middle finger. Postoperative Diagnosis: Open wound of the right middle finger. Procedure: Debridement of skin and subcutaneous tissue, simple closure of 3 cm wound flap closure. Anesthesia: General. Description Of Procedure: After satisfactory induction of general anesthesia, the right hand was pre pped with Betadine scrub and Betadine paint. Dry sterile drapes applied in usual manner. Hand place d on the OR table. Curette and forceps were used to debride skin and subcutaneous tissue as needed a nd both volar and dorsal surfaces. The wound was then jet lavaged and irrigated with 3 L of dilute B etadine solution. Electrocautery was used for hemostasis. The volar wound closed by advancement fla p with 4-0 Prolene horizontal mattress simple sutures. The dorsal wound was closed with simple closu re of 4-0 Prolene. Dressed with Xeroform and 2-inch Td. The patient tolerated the procedure well and returned to Recovery. LITO/ELISE Voice ID: [id number] Report ID: [id number]
== END 2022-10-23 15:14 | disposition home or self-care (01) | DRG 983 ==
LOC: ER 09:29 → ERHOLD 12:01 → 4TH 14:37
PROVIDERS: ADMIT Internal Medicine; ATTEND Internal Medicine
PROC: 0LD70ZZ Extraction of Right Hand Tendon, Open Approach (ICD-10-PCS; principal; 2022-10-21 15:00)
PROC: 0JDJ0ZZ Extraction of Right Hand Subcutaneous Tissue and Fascia, Open Approach (ICD-10-PCS; 2022-10-23)
DX: L03.011 Cellulitis of right finger (principal); M65.9 Synovitis and tenosynovitis, unspecified; I10 Essential (primary) hypertension; J30.2 Other seasonal allergic rhinitis; D16.11 Benign neoplasm of short bones of right upper limb; K21.9 Gastro-esophageal reflux disease without esophagitis; F32.A Depression, unspecified; E78.00 Pure hypercholesterolemia, unspecified; S61.252A Open bite of right middle finger without damage to nail, initial encounter; Z88.0 Allergy status to penicillin; Z88.1 Allergy status to other antibiotic agents; Z98.51 Tubal ligation status; Z79.01 Long term (current) use of anticoagulants; Z90.710 Acquired absence of both cervix and uterus; Z79.899 Other long term (current) drug therapy; Z86.718 Personal history of other venous thrombosis and embolism; Z96.653 Presence of artificial knee joint, bilateral; W54.0XXA Bitten by dog, initial encounter; Y93.9 Activity, unspecified; Y92.9 Unspecified place or not applicable
CPT/HCPCS: 36415; 71045; 80048; 80053; 83605; 83735; 84100; 85025; 85610; 86140; 87040; 87070; 87075; 87205; 88304; 90471; 93005; 96365; 96366; 96375; 99285; J0744; J1100; J1170; J2001; J2250; J2405; J2704; J3010; J7050; J7120

== ENCOUNTER 2023-10-08 08:23 | Emergency (ER) | payer BC ==
[2023-10-08] MEDS ORDERED: ASPIRIN 81 MG CHEWABLE TABLET ONE (08:54)
[2023-10-08 09:11] LABS: Absolute Basophils 0.1 K/uL (0-0.5); Absolute Eosinophils 0.1 K/uL (0-0.5); Absolute Monocytes 0.6 K/uL (0.1-1.3); Absolute Neutrophil 3.1 K/uL (1.8-8.0); Basophils % 1.1 % (0-1.3); Eosinophils % 2.3 % (0-4.4); Hematocrit 41.9 % (36.0-45.0); Hemoglobin 13.5 g/dL (12.0-15.0); Lymphocytes % 34.2 % (15.3-44.8); MCH 27.1 pg (27.0-35.0); MCHC 32.2 g/dL (32.0-36.0); MCV 84.2 fL (80-100); Monocytes % 10.2 % (3.3-12.3); Neutrophils % 52.2 % (41.7-73.7); Nucleated Red Blood Cells % 0.1 % (0-0); PT Prothrombin Time 20.9 SECONDS (9.5-12.5); Platelets 305 thou/uL (152-406); Protime INR 1.94; RBC Red Blood Cell Count 4.97 M/uL (3.86-4.86); Red Cell Distribution Width 14.7 % (12.1-15.2)
[2023-10-08 09:27] LABS: Albumin 3.7 g/dL (3.4-5.0); Anion Gap 5.6 mEq/L (5.0-15.0); Bilirubin Direct 0.1 mg/dL (0-0.2); Bilirubin Indirect, Calculated 0.3 mg/dL (0.2-0.8); Bilirubin Total 0.4 mg/dL (0.2-1.0); Globulin 3.7 g/dL (2.3-3.5); Magnesium 2.3 mg/dL (1.6-2.4); Potassium 3.6 mEq/L (3.5-5.1); Protein, Total 7.4 g/dL (6.4-8.2); Troponin High Sensitivity 3.8 pg/mL (<58.9)
--- NOTE | 2023-10-08 09:53 | RAD REPORT ---
EXAM DESCRIPTION: RAD - Chest Single View - 10/08/2023 9:42 am CLINICAL HISTORY: CHEST PAIN Chest pain. COMPARISON: Chest Single View dated 10/21/2022; CHEST PA AND LAT 2 VIEW dated 07/17/2012 FINDINGS: Portable technique limits examination quality. Mild interstitial pulmonary edema. The heart is normal in size appear No displaced fractures.
--- NOTE | 2023-10-08 11:23 | ER ---
Nurse's Notes [facility] Name: Therese Gutierrez Age: 62 yrs Sex: Female : 1960 Arrival Date: 10/08/2023 Time: 08:23 Bed 17 Private MD: Veronica Melton Diagnosis: Chest pain, unspecified Presentation: 10/07 08:39 Chief complaint: Patient states: I have pressure in my chest going up into left side of iw neck and sometimes it goes down my left arm, started today. Sunday when i went to see the doctor they switched me to metoprolol instead of lisinopril. Coronavirus screen: At this time, the client does not indicate any symptoms associated with coronavirus-19. Ebola Screen: Patient negative for fever greater than or equal to 101.5 degrees Fahrenheit, and additional compatible Ebola Virus Disease symptoms Patient denies exposure to infectious person. Patient denies travel to an Ebola-affected area in the 21 days before illness onset. No symptoms or risks identified at this time. 08:39 Method Of Arrival: Ambulatory iw 08:39 Acuity: MICHAELA 3 iw 11:34 Initial Sepsis Screen: Does the patient meet any 2 criteria? No. Patient's initial ld1 sepsis screen is negative. Does the patient have a suspected source of infection? No. Patient's initial sepsis screen is negative. Risk Assessment: Do you want to hurt yourself or someone else? Patient reports no desire to harm self or others. Onset of symptoms was October 08, 2023 at 11:34. Historical: - Allergies: 08:38 Bactrim; iw 08:38 PENICILLINS; iw 08:38 Zocor; iw - Home Meds: 08:38 metoprolol succinate oral 12.5 mg daily [Active]; iw 08:41 semaglutide 0.25 mg or 0.5 mg (2 mg/3 mL) subcutaneous Pen Injector [Active]; Xarelto iw 20 mg oral tablet daily [Active]; venlafaxine 150 mg oral Capsule, ER 24 hr daily [Active]; atorvastatin 20 mg oral tablet every day at bedtime [Active]; buspirone 5 mg oral tablet 2 times per day [Active]; doxycycline hyclate 100 mg Oral tablet 2 times per day [Active]; montelukast 10 mg oral tablet every day at bedtime [Active]; - PMHx: 08:41 Gastric Reflux; Heart Murmur; Hypercholesterolemia; Hypertensive disorder; DVT; iw - PSHx: 08:41 hysterectomy; Knee replacement x2; Ligation of fallopian tube; iw - Immunization history:: Adult Immunizations up to date. - Infectious Disease History:: Denies. - Social history:: Smoking status: Patient denies any tobacco usage or history of. Screenin:05 [facility] ED Fall Risk Assessment (Adult) History of falling in the last 3 months, ld1 including since admission No falls in past 3 months (0 pts). Abuse screen: Denies threats or abuse. Denies injuries from another. Nutritional screening: No deficits noted. Tuberculosis screening: No symptoms or risk factors identified. Assessment: 08:45 Reassessment: Patient and/or family updated on plan of care and expected duration. Pain rs5 level reassessed. Patient is alert, oriented x 3, equal unlabored respirations, skin warm/dry/pink. Pain: Pain currently is 2 out of 10 on a pain scale. Quality of pain is described as aching, Is continuous. Cardiovascular: Rhythm is regular. Respiratory: Respiratory effort is even, unlabored, Respiratory pattern is regular, symmetrical. GI: Abdomen is round non-distended. : No signs and/or symptoms were reported regarding the genitourinary system. EENT: No signs and/or symptoms were reported regarding the EENT system. Derm: No signs and/or symptoms reported regarding the dermatologic system. Musculoskeletal: No signs and/or symptoms reported regarding the musculoskeletal system. 09:50 Reassessment: No changes from previously documented assessment. rs5 11:05 General: Appears in no apparent distress. comfortable, Behavior is calm, cooperative, ld1 appropriate for age. Pain: Denies pain. Pain: Denies pain. Complains of pain in chest Pain does not radiate. Pain currently is 0 out of 10 on a pain scale. at worst was 7 out of 10 on a pain scale. Quality of pain is described as throbbing. Neuro: Level of Consciousness is awake, alert, obeys commands, Oriented to person, place, time, situation. Neuro: Cardiovascular: Capillary refill < 3 seconds Patient's skin is warm and dry. Rhythm is sinus rhythm. Respiratory: Airway is patent Respiratory effort is even, unlabored. GI: Abdomen is round non-distended. : No signs and/or symptoms were reported regarding the genitourinary system. EENT: No signs and/or symptoms were reported regarding the EENT system. Derm: No signs and/or symptoms reported regarding the dermatologic system. Musculoskeletal: No signs and/or symptoms reported regarding the musculoskeletal system. Vital Signs: 08:39 BP 130 / 85; Pulse 84; Resp 16; Temp 98; Pulse Ox 100% on R/A; Weight 127.91 kg; Height iw 5 ft. 7 in. ; 09:14 BP 126 / 89; Pulse 84; Resp 18; Pulse Ox 98% on R/A; rs5 11:05 BP 119 / 75; Pulse 77; Resp 18; Pulse Ox 100% on R/A; Pain 0/10; ld1 08:39 Body Mass Index 44.17 (127.91 kg, 170.18 cm) iw 11:05 Pain Scale: Adult ld1 ED Course: 08:26 Patient arrived in ED. mr 08:26 Veronica Melton is Private Physician. mr 08:29 Pallavi Dominique PA-C is PHCP. sb4 08:29 Jian Powers MD is Attending Physician. sb4 08:41 Triage completed. iw 08:43 Arm band placed on. iw 08:46 Jayce Thomas, RN is Primary Nurse. rs5 09:44 XRAY Chest (1 view) In Process Unspecified. EDMS 10:30 Inserted saline lock: 20 gauge in left antecubital area, using aseptic technique. Blood ld1 collected. 11:05 Patient has correct armband on for positive identification. Placed in gown. Bed in low ld1 position. Call light in reach. Side rails up X2. nuclear monitoring technician on. Pulse ox on. NIBP on. Door closed. Noise minimized. Warm blanket given. 11:05 No provider procedures requiring assistance completed. ld1 11:23 Segundo uTttle MD is Referral Physician. sb4 11:34 IV discontinued, intact, bleeding controlled, No redness/swelling at site. ld1 Administered Medications: 08:54 Not Given (Other Intervention Used): aspirinchewable tablet 324 mg PO once; 81 mg sb4 tablets x 4 09:00 Drug: Aspirin PO 162 mg PO once Route: PO; rs5 10:01 Follow up: Response: No adverse reaction rs5 Medication: 11:05 VIS not applicable for this client. ld1 Outcome: 11:23 Discharge ordered by . sb4 11:34 Discharged to home ambulatory, ld1 11:34 Condition: stable 11:34 Discharge instructions given to patient, Instructed on discharge instructions, follow up and referral plans. Demonstrated understanding of instructions, follow-up care, 11:34 Patient left the ED. ld1 Signatures: Dispatcher [employer] EDMS Irene Gonzalez, Reg Reg mr Geovanna Jean, RN RN iw Veronica Hicks RN RN ld1 Pallavi Dominique, PA-C PA-C sb4 Jayce Thomas, RN RN rs5
--- NOTE | 2023-10-08 11:23 | EDPHYS ---
Physician Documentation [facility] Name: Therese Gutierrez Age: 62 yrs Sex: Female : 1960 Arrival Date: 10/08/2023 Time: 08:23 Bed 17 Private MD: Veronica Melton ED Physician Jian Powers HPI: 10/07 08:52 This 62 yrs old Female presents to ER via Ambulatory with complaints of Chest Pain. sb4 08:52 The patient or guardian reports chest pain that is located primarily in the chest sb4 diffusely. Onset: this morning. The pain radiates to the left arm, left neck, back. Associated signs and symptoms: The patient has no apparent associated signs or symptoms. The chest pain is described as tightness. Modifying factors: The symptoms are alleviated by nothing. the symptoms are aggravated by nothing. The patient has not experienced similar symptoms in the past. The patient has been recently seen by a physician: the patient's primary care provider, 5 day(s) ago. 08:53 chest tightness that started this morning. concerned because she states her blood sb4 pressure has been fluctuating a lot and recently had her lisonpril switched to metoprolol. denies any significant cardiac history. is on xarelto for recurrent DVTs. Historical: - Allergies: 08:38 Bactrim; iw 08:38 PENICILLINS; iw 08:38 Zocor; iw - Home Meds: 08:38 metoprolol succinate oral 12.5 mg daily [Active]; iw 08:41 semaglutide 0.25 mg or 0.5 mg (2 mg/3 mL) subcutaneous Pen Injector [Active]; Xarelto iw 20 mg oral tablet daily [Active]; venlafaxine 150 mg oral Capsule, ER 24 hr daily [Active]; atorvastatin 20 mg oral tablet every day at bedtime [Active]; buspirone 5 mg oral tablet 2 times per day [Active]; doxycycline hyclate 100 mg Oral tablet 2 times per day [Active]; montelukast 10 mg oral tablet every day at bedtime [Active]; - PMHx: 08:41 Gastric Reflux; Heart Murmur; Hypercholesterolemia; Hypertensive disorder; DVT; iw - PSHx: 08:41 hysterectomy; Knee replacement x2; Ligation of fallopian tube; iw - Immunization history:: Adult Immunizations up to date. - Infectious Disease History:: Denies. - Social history:: Smoking status: Patient denies any tobacco usage or history of. ROS: 08:54 Constitutional: Negative for fever, chills, and weight loss, sb4 08:54 Cardiovascular: Positive for chest pain, 08:54 All other systems are negative, Exam: 08:54 Constitutional: This is a well developed, well nourished patient who is awake, alert, sb4 and in no acute distress. Head/Face: Normocephalic, atraumatic. Eyes: Extra-ocular motions intact. Periorbital areas with no swelling, redness, or edema. ENT: Mucous membranes moist. Cardiovascular: Regular rate and rhythm with a normal S1 and S2. Respiratory: Lungs have equal breath sounds bilaterally, clear to auscultation and percussion. No rales, rhonchi or wheezes noted. No increased work of breathing, no retractions or nasal flaring. Abdomen/GI: Soft, non-tender, no distension. Skin: Warm, dry with normal turgor. Normal color with no rashes, no lesions, and no evidence of cellulitis. MS/ Extremity: Pulses equal, no cyanosis. Neurovascular intact. Full, normal range of motion. Neuro: Awake and alert, GCS 15, oriented to person, place, time, and situation. Motor strength 5/5 in all extremities. Sensory grossly intact. Vital Signs: 08:39 BP 130 / 85; Pulse 84; Resp 16; Temp 98; Pulse Ox 100% on R/A; Weight 127.91 kg; Height iw 5 ft. 7 in. ; 09:14 BP 126 / 89; Pulse 84; Resp 18; Pulse Ox 98% on R/A; rs5 11:05 BP 119 / 75; Pulse 77; Resp 18; Pulse Ox 100% on R/A; Pain 0/10; ld1 08:39 Body Mass Index 44.17 (127.91 kg, 170.18 cm) iw 11:05 Pain Scale: Adult ld1 MDM: 08:39 Patient medically screened. sb4 08:54 The patient was given aspirin in the Emergency Department. sb4 09:45 Scoring Tools HEART Score: History: ECG: Age: Risk Factors: > or = 3 Risk factors for sb4 atherosclerotic disease (2), Troponin: Total Score = 3. 09:46 Data reviewed: vital signs, nurses notes, lab test result(s), EKG, radiologic studies, sb4 and as a result, I will discharge patient. Consideration of Admission/Observation Escalation of care including admission/observation considered. Care significantly affected by the following chronic conditions: Hypertension, Obesity. 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 Special discussion: Based on the patient's history, exam, and Dx evaluation, there is no indication for emergent intervention or inpatient Tx. It is understood by the patient/guardian that if the Sx's persist or worsen they need to return immediately for re-evaluation. 10/07 08:42 Order name: Basic Metabolic Panel; Complete Time: 09:29 sb4 10/07 08:42 Order name: CBC with Diff; Complete Time: :29 sb4 10/07 08:42 Order name: LFT's; Complete Time: :29 sb4 10/07 08:42 Order name: Magnesium; Complete Time: :29 sb4 10/07 08:42 Order name: NT PRO-BNP; Complete Time: :29 sb4 10/07 08:42 Order name: PT-INR; Complete Time: 09:14 sb4 10/07 08:42 Order name: Troponin HS; Complete Time: 09:29 sb4 10/07 10:32 Order name: Troponin HS; Complete Time: 11:21 rs5 10/07 08:42 Order name: XRAY Chest (1 view); Complete Time: 09:54 sb4 10/07 08:42 Order name: Cardiac monitoring; Complete Time: 09:00 sb4 10/07 08:42 Order name: EKG - Nurse/Tech; Complete Time: 08:57 sb4 10/07 08:42 Order name: IV Saline Lock; Complete Time: 09:00 sb4 10/07 08:42 Order name: Labs collected and sent; Complete Time: 09:00 sb4 10/07 08:42 Order name: O2 Per Protocol; Complete Time: 09:00 sb4 10/07 08:42 Order name: O2 Sat Monitoring; Complete Time: 09:00 sb4 10/07 09:30 Order name: Misc. Order: repeat trop at 1100; Complete Time: 10:52 sb4 EC:55 Rate is 74 beats/min. Rhythm is regular, Normal Sinus Rhythm. OH interval is normal at sb4 166 msec. QRS interval is normal at 84 msec. QT interval is normal at 408 msec. No Q waves. T waves are Normal. No ST changes noted. Clinical impression: Normal ECG and No evidence of ischemia. Interpreted by me. Reviewed by me. Administered Medications: 08:54 Not Given (Other Intervention Used): aspirinchewable tablet 324 mg PO once; 81 mg sb4 tablets x 4 09:00 Drug: Aspirin PO 162 mg PO once Route: PO; rs5 10:01 Follow up: Response: No adverse reaction rs5 Disposition: 12:01 Co-signature as Attending Physician, Jian Powers MD I reviewed the patient's care rn provided by the Advanced Practice Provider and agree with the diagnosis and treatment plan. Disposition Summary: 10/08/23 11:23 Discharge Ordered Notes: Location: Home sb4 Problem: new sb4 Symptoms: have improved sb4 Condition: Stable sb4 Diagnosis - Chest pain, unspecified sb4 Followup: sb4 - With: Segudno Tuttle MD - When: 1 week - Reason: Further diagnostic work-up, Recheck today's complaints, Re-evaluation by your physician Discharge Instructions: - Discharge Summary Sheet sb4 - Nonspecific Chest Pain, Adult, [id number] sb4 Forms: - Patient Portal Instructions sb4 - Leadership Thank You Letter sb4 Signatures: Dispatcher [employer] Geovanna Mederos RN RN iw Nieto, Roman, MD MD rn Brown, Sophia, PA-C PA-C sb4 Jayce Thomas RN RN rs5 Corrections: (The following items were deleted from the chart) 08:42 08:42 Chest Single View+RAD.[email or web address].[email or web address] ordered. NOEMY SALGUERO
[2023-10-08 12:18] VITALS: BP 119/75; TEMP 98; O2SAT 100
--- NOTE | 2023-10-09 14:46 | EKG ---
Test Date: 2023-10-08 Test Time: 08:53:01 Meat And Poultry Inspector: SUSAN MEASUREMENT RESULTS: Intervals: Rate: 74 W[place]: 166 QRSD: 84 QT: 408 QTc: 452 [place]: P: 2 WY: 166 QRS: -27 T: 49 INTERPRETIVE STATEMENTS: Normal sinus rhythm Normal ECG Compared to ECG 10/21/2022 11:23:37 No significant changes Electronically Signed On 10-09-23 14:44:04 CDT by Segundo Tuttle
== END 2023-10-08 11:34 | disposition home or self-care (01) ==
LOC: ER 08:23
DX: R07.9 Chest pain, unspecified (principal); I10 Essential (primary) hypertension; Z86.718 Personal history of other venous thrombosis and embolism; Z79.01 Long term (current) use of anticoagulants; Z88.0 Allergy status to penicillin; Z88.1 Allergy status to other antibiotic agents; Z88.8 Allergy status to other drugs, medicaments and biological substances
CPT/HCPCS: 36415; 71045; 80048; 80076; 83735; 83880; 84484; 85025; 85610; 93005; 99284

== ENCOUNTER 2024-06-12 10:22 | Emergency (ER) | payer BC ==
--- NOTE | 2024-06-12 10:54 | RAD REPORT ---
EXAM:Ankle Right 3 View CLINICAL HISTORY: Ankle pain FINDINGS: No fracture or dislocation seen. Large calcaneal spurs Soft tissue swelling
--- NOTE | 2024-06-12 10:56 | ER ---
Nurse's Notes [facility] Name: Therese Gutierrez Age: 63 yrs Sex: Female : 1960 Arrival Date: 06/12/2024 Time: 10:22 Bed 15 Private MD: Diagnosis: Sprain of foot Presentation: 06/12 10:30 Chief complaint: Patient states: stepped out of the truck two weeks ago and felt a pop iw in her right foot , has been painful since then. Coronavirus screen: At this time, the client does not indicate any symptoms associated with coronavirus-19. Ebola Screen: No symptoms or risks identified at this time. Initial Sepsis Screen: Does the patient meet any 2 criteria? No. Patient's initial sepsis screen is negative. Does the patient have a suspected source of infection? No. Patient's initial sepsis screen is negative. Risk Assessment: Do you want to hurt yourself or someone else? Patient reports no desire to harm self or others. Onset of symptoms was May 30, 2024. 10:30 Method Of Arrival: Ambulatory iw 10:30 Acuity: MICHAELA 4 iw Historical: - Allergies: 10:31 Bactrim; iw 10:31 PENICILLINS; iw 10:31 Zocor; iw - PMHx: 10:31 DVT; Hypercholesterolemia; Heart Murmur; Gastric Reflux; Hypertensive disorder; iw - PSHx: 10:31 hysterectomy; Knee replacement x2; Ligation of fallopian tube; iw - Immunization history:: Adult Immunizations up to date. - Infectious Disease History:: Denies. - Social history:: Smoking status: Patient denies any tobacco usage or history of. Screenin:23 [facility] ED Fall Risk Assessment (Adult) History of falling in the last 3 months, db including since admission No falls in past 3 months (0 pts) Confusion or Disorientation No (0 pts) Intoxicated or Sedated No (0 pts) Impaired Gait No (0 pts) Mobility Assist Device Used No (0 pt) Altered Elimination No (0 pt) Score/Fall Risk Level 0 - 2 = Low Risk Oriented to surroundings, Maintained a safe environment. Abuse screen: Denies threats or abuse. Denies injuries from another. Nutritional screening: No deficits noted. Tuberculosis screening: No symptoms or risk factors identified. Assessment: 11:23 Reassessment: Patient appears in no apparent distress at this time. Patient and/or db family updated on plan of care and expected duration. Pain level reassessed. Patient is alert, oriented x 3, equal unlabored respirations, skin warm/dry/pink. General: Appears in no apparent distress. comfortable, Behavior is calm, cooperative. Pain: Complains of pain in right ankle. Neuro: Level of Consciousness is awake, alert, obeys commands, Oriented to person, place, time, situation. Respiratory: Airway is patent Respiratory effort is even, unlabored, Respiratory pattern is regular, symmetrical. 11:23 Musculoskeletal: Circulation, motion, and sensation intact. Capillary refill < 3 db seconds, Swelling present in right foot Reports pain in right ankle. Vital Signs: 10:30 BP 148 / 84; Pulse 80; Resp 16; Temp 97.8; Pulse Ox 100% on R/A; Weight 132 kg; Height iw 5 ft. 7 in. ; Pain 9/10; 10:30 Body Mass Index 45.58 (132.00 kg, 170.18 cm) iw 10:30 Pain Scale: Adult iw ED Course: 10:24 Patient arrived in ED. mr 10:25 Manjit Reyes MD is Attending Physician. ec2 10:31 Triage completed. iw 10:32 Wilda Orozco, KEMAR is Primary Nurse. db 10:33 Arm band placed on Patient placed in an exam room. db 10:46 Ankle Right 3 View XRAY In Process Unspecified. EDMS 11:09 Hugh wrap to right ankle. db 11:23 Patient has correct armband on for positive identification. Bed in low position. Call db light in reach. Side rails up X 1. Provided Education on: DISCHARGE AND ANKLE PAIN CARE. 11:23 No provider procedures requiring assistance completed. Patient did not have IV access db during this emergency room visit. Administered Medications: No medications were administered Medication: 11:23 VIS not applicable for this client. db Outcome: 10:56 Discharge ordered by . ec2 11:23 Discharged to home ambulatory, db 11:23 Condition: stable 11:23 Discharge instructions given to patient, Instructed on discharge instructions, follow up and referral plans. 11:25 Patient left the ED. db Signatures: Dispatcher [employer] EDWV Irene Gonzalez, Reg Reg mr Geovanna Jean RN RN iw Orozco, Wilda, Manjit Blake RN, MD MD ec2 Corrections: (The following items were deleted from the chart) 10:31 10:30 BP 148 / 4; Pulse 80bpm; Resp 16bpm; Pulse Ox 100% RA; Temp 97.8F; 132 kg; Height iw 5 ft. 7 in.; BMI: 45.5; Pain 9/10, Adult; iw
--- NOTE | 2024-06-12 10:56 | EDPHYS ---
Physician Documentation [facility] Name: Therese Gutierrez Age: 63 yrs Sex: Female : 1960 Arrival Date: 06/12/2024 Time: 10:22 Bed 15 Private MD: ED Physician aMnjit Reyes HPI: 06/12 10:40 This 63 yrs old Female presents to ER via Ambulatory with complaints of Foot ec2 Pain, right. 10:40 Patient arrives today d/t concern for R foot/ankle pain. Reports that she has been ec2 having pain since abnormally stepping on the R foot several days ago. no fall, or other concerns.. Historical: - Allergies: 10:31 Bactrim; iw 10:31 PENICILLINS; iw 10:31 Zocor; iw - PMHx: 10:31 DVT; Hypercholesterolemia; Heart Murmur; Gastric Reflux; Hypertensive disorder; iw - PSHx: 10:31 hysterectomy; Knee replacement x2; Ligation of fallopian tube; iw - Immunization history:: Adult Immunizations up to date. - Infectious Disease History:: Denies. - Social history:: Smoking status: Patient denies any tobacco usage or history of. ROS: 10:41 Constitutional: as per hpi ec2 Exam: 10:41 Constitutional: GEN: NAD Head: atraumatic Eyes: EOMI Ears: External ears are ec2 normal. CV: regular rate LUNGS: no respiratory distress ABD: non-distended SKIN: no evidence of rashes MSK: no evidence of traumaRight midfoot with trace swelling and slight amount of ecchymosis. Good range of motion at the ankle and midfoot. Vital Signs: 10:30 BP 148 / 84; Pulse 80; Resp 16; Temp 97.8; Pulse Ox 100% on R/A; Weight 132 kg; Height iw 5 ft. 7 in. ; Pain 9/10; 10:30 Body Mass Index 45.58 (132.00 kg, 170.18 cm) iw 10:30 Pain Scale: Adult iw MDM: 10:29 Medical Screening Exam initiated ec2 10:41 Data reviewed: vital signs, nurses notes. ED course: Patient arrives today for right ec2 foot pain. Examination yields MSK findings as above. Will obtain x-ray. Suspect sprain. Doubt fracture. Doubt dislocation.. 10:55 ED course: Ankle x-ray independently reviewed and interpreted by me, shows no bony ec2 fracture. Will discharge home, place Hugh wrap and have patient follow-up with PCP. Return precautions given.. 06/12 10:32 Order name: Ankle Right 3 View XRAY; Complete Time: 10:55 ec2 06/12 10:56 Order name: Hugh Wrap; Complete Time: 11:09 ec2 Administered Medications: No medications were administered Disposition Summary: 06/12/24 10:56 Discharge Ordered Notes: Location: Home ec2 Condition: Stable ec2 Diagnosis - Sprain of foot ec2 Followup: ec2 - With: Private Physician - When: - Reason: Re-evaluation by your physician Discharge Instructions: - Discharge Summary Sheet ec2 - Foot Sprain ec2 Forms: - Medication Reconciliation Form ec2 - Antibiotic Education ec2 - Prescription Opioid Use ec2 - Patient Portal Instructions ec2 - Leadership Thank You Letter ec2 Signatures: Dispatcher [employer] Geovanna Mederos RN RN iw Corral, Edwin, MD MD ec2
[2024-06-12 11:31] VITALS: BP 148/84; TEMP 97.8; O2SAT 100
== END 2024-06-12 11:25 | disposition home or self-care (01) ==
LOC: ER 10:22
DX: S93.601A Unspecified sprain of right foot, initial encounter (principal); I10 Essential (primary) hypertension; Z88.0 Allergy status to penicillin; Z88.1 Allergy status to other antibiotic agents; Z88.8 Allergy status to other drugs, medicaments and biological substances
CPT/HCPCS: 99283

== ENCOUNTER 2024-08-29 08:37 | Day surgery (SDC) | payer BC ==
[2024-08-27 10:48] LABS: Absolute Basophils 0.1 K/uL (0-0.5); Absolute Eosinophils 0.2 K/uL (0-0.5); Absolute Lymphocytes (CBC) 2.1 K/uL (0.7-4.9); Absolute Monocytes 0.7 K/uL (0.1-1.3); Absolute Neutrophil 3.1 K/uL (1.8-8.0); Basophils % 1.2 % (0-1.3); Eosinophils % 2.6 % (0-4.4); Hematocrit 38.1 % (36.0-45.0); Hemoglobin 12.8 g/dL (12.0-15.0); Lymphocytes % 34.2 % (15.3-44.8); MCH 27.9 pg (27.0-35.0); MCHC 33.6 g/dL (32.0-36.0); MCV 82.9 fL (80-100); Monocytes % 11.8 % (3.3-12.3); Neutrophils % 50.2 % (41.7-73.7); Platelets 278 thou/uL (152-406); Red Cell Distribution Width 15.6 % (12.1-15.2)
[2024-08-27 11:08] LABS: Anion Gap 8.7 mEq/L (5.0-15.0); Potassium 3.7 mEq/L (3.5-5.1)
[2024-08-27 11:13] LABS: PT Prothrombin Time 11.9 SECONDS (10-13.0); Protime INR 1.05
--- NOTE | 2024-08-27 12:25 | EKG ---
Test Date: 2024-08-27 Test Time: 10:29:55 Human Resources Receptionist: SHANNA MEASUREMENT RESULTS: Intervals: Rate: 73 [place]: 158 QRSD: 86 QT: 410 QTc: 451 [place]: P: 26 [place]: 158 QRS: -17 T: 72 INTERPRETIVE STATEMENTS: Normal sinus rhythm Normal ECG Compared to ECG 10/08/2023 08:53:01 No significant changes Electronically Signed On 08-27-24 12:24:34 CDT by Abimael Spence
[2024-08-29] MEDS: Ringers Lactate 1,000 ML IV ONE (09:15)
[2024-08-29] MEDS ORDERED: propofoL 200 MG/20 ML VIAL IV ONE ×3 (09:22→11:31)
[2024-08-29] MEDS ORDERED: LIDOCAINE 1% MPF 30 ML VIAL ONE (10:47)
[2024-08-29] MEDS ORDERED: Phenylephrine HCl 10 MG/ML 1 ML VIAL ONE (12:03)
[2024-08-29 13:27] VITALS: O2SAT 100
[2024-08-29 13:29] VITALS: BP 120/54; TEMP 97.7
== END 2024-08-29 12:40 | disposition home or self-care (01) ==
LOC: OR 08:37
PROVIDERS: ATTEND Surgery
PROC: 0DBN8ZX Excision of Sigmoid Colon, Via Natural or Artificial Opening Endoscopic, Diagnostic (ICD-10-PCS; 2024-08-29)
PROC: 0DBF8ZX Excision of Right Large Intestine, Via Natural or Artificial Opening Endoscopic, Diagnostic (ICD-10-PCS; 2024-08-29)
PROC: 0DBG8ZX Excision of Left Large Intestine, Via Natural or Artificial Opening Endoscopic, Diagnostic (ICD-10-PCS; principal; 2024-08-29 11:15)
DX: Z12.11 Encounter for screening for malignant neoplasm of colon (principal); D12.4 Benign neoplasm of descending colon; D12.2 Benign neoplasm of ascending colon; D12.5 Benign neoplasm of sigmoid colon; K64.8 Other hemorrhoids; K57.30 Diverticulosis of large intestine without perforation or abscess without bleeding; D12.0 Benign neoplasm of cecum
CPT/HCPCS: 93005; 85025; 80048; 36415; 85610; 88305; 85730; 45385; J2704 ×3; J2371; J2003; J7120